=== PATIENT | male | born 1950 | race Hispanic/Latino ===

== ENCOUNTER → 2016-09-27 | Outpatient (CLI) | payer MEDICARE, MEDICAID ==
[2016-09-27 19:14] LABS: ALBUMIN 3.7 GM/DL (3.2-5.2); ALBUMIN/GLOBULIN RATIO 1.16 (1.00-1.93); ALKALINE PHOSPHATASE 193 U/L (45-117); ALT/SGPT 36 U/L (12-78); ANION GAP 7 MEQ/L (8-16); AST/SGOT 24 U/L (15-37); BILIRUBIN,TOTAL 0.2 MG/DL (0.2-1.0); BLOOD UREA NITROGEN 11 MG/DL (7-18); CALCIUM LEVEL 8.9 MG/DL (8.8-10.2); CARBON DIOXIDE LEVEL 30 MEQ/L (21-32); CHLORIDE LEVEL 104 MEQ/L (98-107); CHOLESTEROL LEVEL 149 MG/DL (<200); CREATININE FOR GFR 0.81 MG/DL (0.70-1.30); GLOMERULAR FILTRATION RATE > 60.0 (>49); GLUCOSE, FASTING 151 MG/DL (80-110); POTASSIUM SERUM 4.6 MEQ/L (3.5-5.1); SODIUM LEVEL 141 MEQ/L (136-145); TOTAL PROTEIN 6.9 GM/DL (6.4-8.2); TRIGLYCERIDES LEVEL 78 MG/DL (<150)
[2016-09-27 19:43] LABS: MEAN CORPUSCULAR HEMOGLOBIN 33.7 pg (27.0-33.0); MEAN CORPUSCULAR HGB CONC 33.8 g/dl (32.0-36.5); MEAN CORPUSCULAR VOLUME 99.8 fl (80.0-96.0); RED CELL DISTRIBUTION WIDTH 13.4 % (11.5-14.5); WHITE BLOOD COUNT 4.1 K/mm3 (4.0-10.0)
== END ==
LOC: M WUC 09:40
PROVIDERS: ATTEND Family Medicine
DX: Z79.899 Other long term (current) drug therapy (principal); E11.9 Type 2 diabetes mellitus without complications; I10 Essential (primary) hypertension

== ENCOUNTER → 2017-02-15 | Outpatient (CLI) | payer MEDICARE, MEDICAID | LOC: M WUC 09:32 | PROVIDERS: ATTEND Physician Assistant Medical | DX: R56.9 Unspecified convulsions (principal) ==

== ENCOUNTER → 2017-03-29 | Outpatient (CLI) | payer MEDICARE, MEDICAID ==
[2017-03-29 18:38] LABS: MEAN CORPUSCULAR HEMOGLOBIN 34.4 pg (27.0-33.0); MEAN CORPUSCULAR HGB CONC 34.4 g/dl (32.0-36.5); RED CELL DISTRIBUTION WIDTH 13.7 % (11.5-14.5); WHITE BLOOD COUNT 6.2 K/mm3 (4.0-10.0)
[2017-03-29 18:53] LABS: ALBUMIN 3.6 GM/DL (3.2-5.2); ALBUMIN/GLOBULIN RATIO 1.16 (1.00-1.93); ALKALINE PHOSPHATASE 164 U/L (45-117); ALT/SGPT 37 U/L (12-78); ANION GAP 7 MEQ/L (8-16); AST/SGOT 24 U/L (15-37); BILIRUBIN,TOTAL 0.2 MG/DL (0.2-1.0); BLOOD UREA NITROGEN 21 MG/DL (7-18); CALCIUM LEVEL 8.5 MG/DL (8.8-10.2); CARBON DIOXIDE LEVEL 30 MEQ/L (21-32); CHLORIDE LEVEL 99 MEQ/L (98-107); CREATININE FOR GFR 0.93 MG/DL (0.70-1.30); GLOMERULAR FILTRATION RATE > 60.0 (>49); GLUCOSE, FASTING 104 MG/DL (80-110); POTASSIUM SERUM 4.6 MEQ/L (3.5-5.1); SODIUM LEVEL 136 MEQ/L (136-145); TOTAL PROTEIN 6.7 GM/DL (6.4-8.2)
== END ==
LOC: M WUC 14:48
PROVIDERS: ATTEND Family Medicine
DX: E11.9 Type 2 diabetes mellitus without complications (principal); Z79.899 Other long term (current) drug therapy

== ENCOUNTER → 2017-06-20 | Outpatient (CLI) | payer MEDICARE, MEDICAID ==
[2017-06-20 18:36] LABS: BASO % 0.2 % (0.0-1.0); EOS # 0.3 10^3/uL (0.0-0.50); EOS % 6.6 % (0.0-3.0); IMMATURE GRANULOCYTE % 0.2 % (0-0); LYMPH % 40.2 % (24.0-44.0); MEAN CORPUSCULAR HEMOGLOBIN 32.8 pg (27.0-33.0); MEAN CORPUSCULAR HGB CONC 33.3 g/dl (32.0-36.5); MEAN CORPUSCULAR VOLUME 98.5 fl (80.0-96.0); MONO # 0.4 10^3/uL (0.0-0.8); MONO % 8.2 % (0.0-5.0); NEUTROPHILS # 2.2 10^3/uL (1.8-7.7); NEUTROPHILS % 44.6 % (36.0-66.0); PLATELET COUNT, AUTOMATED 155 10^3/uL (150-450); RED CELL DISTRIBUTION WIDTH 13.6 % (11.5-14.5)
[2017-06-20 18:40] LABS: ADD MORPHOLOGY? NO
== END ==
LOC: M WUC 09:32
PROVIDERS: ATTEND Physician Assistant Medical
DX: R56.9 Unspecified convulsions (principal); E55.9 Vitamin D deficiency, unspecified; Z79.899 Other long term (current) drug therapy

== ENCOUNTER → 2018-04-19 | Outpatient (CLI) | payer MEDICARE, MEDICAID | LOC: M WUC 11:09 | DX: M51.37 Other intervertebral disc degeneration, lumbosacral region (principal) | CPT/HCPCS: 72110 ==

== ENCOUNTER → 2018-06-29 | Outpatient (CLI) | payer MEDICARE, MEDICAID ==
[2018-06-29 20:10] LABS: PHENYTOIN (DILANTIN) 12.5 UG/ML (10.0-20.0)
[2018-06-29 20:31] LABS: TOTAL 25(OH) VITAMIN D 54.1 NG/ML (30.0-100.0)
== END ==
LOC: M WUC 17:23
DX: R56.9 Unspecified convulsions (principal); E55.9 Vitamin D deficiency, unspecified
CPT/HCPCS: 80185

== ENCOUNTER → 2018-08-15 | Outpatient (CLI) | payer MEDICARE, MEDICAID ==
[2018-08-15 17:18] LABS: ALBUMIN 3.5 GM/DL (3.2-5.2); ALBUMIN/GLOBULIN RATIO 1.06 (1.00-1.93); ALKALINE PHOSPHATASE 148 U/L (45-117); ALT/SGPT 37 U/L (12-78); ANION GAP 6 MEQ/L (8-16); AST/SGOT 25 U/L (7-37); BILIRUBIN,TOTAL 0.2 MG/DL (0.2-1.0); BLOOD UREA NITROGEN 15 MG/DL (7-18); CALCIUM LEVEL 8.3 MG/DL (8.8-10.2); CARBON DIOXIDE LEVEL 31 MEQ/L (21-32); CHLORIDE LEVEL 103 MEQ/L (98-107); CREATININE FOR GFR 0.91 MG/DL (0.70-1.30); GLOMERULAR FILTRATION RATE > 60.0 (>49); GLUCOSE, FASTING 182 MG/DL (70-100); POTASSIUM SERUM 4.5 MEQ/L (3.5-5.1); SODIUM LEVEL 140 MEQ/L (136-145); TOTAL PROTEIN 6.8 GM/DL (6.4-8.2)
[2018-08-15 17:20] LABS: BASO % 0.5 % (0.0-1.0); EOS # 0.4 10^3/uL (0.0-0.50); HEMATOCRIT 37.2 % (42.0-52.0); HEMOGLOBIN 12.3 g/dl (13.5-17.5); IMMATURE GRANULOCYTE % 0.3 % (0-3.0); LYMPH % 32.9 % (24.0-44.0); MEAN CORPUSCULAR HEMOGLOBIN 33.2 pg (27.0-33.0); MEAN CORPUSCULAR HGB CONC 33.1 g/dl (32.0-36.5); MEAN CORPUSCULAR VOLUME 100.5 fl (80.0-96.0); MONO # 0.5 10^3/uL (0.0-0.8); MONO % 8.2 % (0.0-5.0); NEUTROPHILS # 3.1 10^3/uL (1.8-7.7); NEUTROPHILS % 52.1 % (36.0-66.0); PLATELET COUNT, AUTOMATED 150 10^3/uL (150-450)
[2018-08-15 17:48] LABS: ESTIMATED AVERAGE GLUCOSE 157 MG/DL (60-110); HEMOGLOBIN A1c 7.1 %
== END ==
LOC: M WUC 13:11
DX: I10 Essential (primary) hypertension (principal)
CPT/HCPCS: 80053

== ENCOUNTER → 2018-12-04 | Outpatient (CLI) | payer MEDICARE, MEDICAID ==
[~2018-12-04] MED LIST: CLOP75TA2; DIAZ10TA2; DILA100C PO; DILA50HA; GLIM2TA PO; GLIM2TAB; GLUC1000 PO; HUMA100I3 SC; INSUH10VL; METF10004; NAME28CA; NAME28CA PO; OLAN10TA2; PARO40TA2; PLAV1TAB2 PO; RISP3TAB20 PO; RISP3TAB3; SIMV10TA2; TRAD5TAB; TRIH2TAB3; TRIH2TAB3 PO; ZOCO10TA PO; ZYPR10TA PO; [UNRECOGNIZED DRUG - CODE]
[2018-12-04 13:44] LABS: BASO % 0.5 % (0.0-1.0); EOS # 0.3 10^3/uL (0.0-0.50); EOS % 5.7 % (0.0-3.0); HEMOGLOBIN 12.9 g/dl (13.5-17.5); LYMPH # 1.7 10^3/uL (1.5-4.5); MEAN CORPUSCULAR HEMOGLOBIN 33.2 pg (27.0-33.0); MEAN CORPUSCULAR HGB CONC 33.9 g/dl (32.0-36.5); MEAN CORPUSCULAR VOLUME 97.9 fl (80.0-96.0); MONO # 0.3 10^3/uL (0.0-0.8); MONO % 7.5 % (0.0-5.0); NEUTROPHILS # 2.1 10^3/uL (1.8-7.7); NEUTROPHILS % 46.8 % (36.0-66.0); PLATELET COUNT, AUTOMATED 143 10^3/uL (150-450); RED BLOOD COUNT 3.88 10^6/uL (4.30-6.10); WHITE BLOOD COUNT 4.4 10^3/uL (4.0-10.0)
[2018-12-04 13:48] LABS: HEMOGLOBIN A1c 6.8 %
[2018-12-04 13:49] LABS: CREATININE, URINE 41.2 MG/DL; MALB URINE SIEMENS 20.3 MG/L; MAU/CREAT RATIO 49.2 MCG/MG (0.0-30.0)
[2018-12-04 13:55] LABS: ALBUMIN 3.8 GM/DL (3.2-5.2); ALT/SGPT 52 U/L (12-78); BILIRUBIN,TOTAL 0.3 MG/DL (0.2-1.0); BLOOD UREA NITROGEN 13 MG/DL (7-18); CALCIUM LEVEL 8.7 MG/DL (8.8-10.2); CARBON DIOXIDE LEVEL 31 MEQ/L (21-32); CHLORIDE LEVEL 104 MEQ/L (98-107); CHOLESTEROL LEVEL 156 MG/DL (<200); CREATININE FOR GFR 0.89 MG/DL (0.70-1.30); GLOMERULAR FILTRATION RATE > 60.0 (>49); GLUCOSE, FASTING 181 MG/DL (70-100); HDL CHOLESTEROL 78 MG/DL (>40); LDL CHOLESTEROL 60 MG/DL (<100); NON-HDL-C 78 MG/DL; PHENYTOIN (DILANTIN) 9.9 UG/ML (10.0-20.0); POTASSIUM SERUM 4.8 MEQ/L (3.5-5.1); SODIUM LEVEL 140 MEQ/L (136-145); TOTAL PROTEIN 7.4 GM/DL (6.4-8.2); TRIGLYCERIDES LEVEL 91 MG/DL (<150)
== END ==
LOC: M WUC 09:46
PROVIDERS: ATTEND Family Medicine
DX: I10 Essential (primary) hypertension (principal); E11.9 Type 2 diabetes mellitus without complications; Z79.899 Other long term (current) drug therapy

== ENCOUNTER → 2018-12-17 | Outpatient (CLI) | payer MEDICARE, MEDICAID ==
[2018-12-17 13:35] LABS: PHENYTOIN (DILANTIN) 14.5 UG/ML (10.0-20.0)
[2018-12-17 13:44] LABS: TOTAL 25(OH) VITAMIN D 48.4 NG/ML (30.0-100.0)
== END ==
LOC: M WUC 08:57
PROVIDERS: ATTEND Physician Assistant Medical
DX: R56.9 Unspecified convulsions (principal); E55.9 Vitamin D deficiency, unspecified

== ENCOUNTER → 2019-03-21 | Outpatient (CLI) | payer MEDICARE, MEDICAID ==
[~2019-03-21] MED LIST changes: +D3 H2000 PO; +DEBR6.5S4 AU; -DIAZ10TA2; +DIAZ10TA2 PO; -GLIM2TA PO; -GLIM2TAB; +GLIM2TAB29 PO; +GLIM2TAB4; +MULTCAP PO; -PARO40TA2; +PARO40TA2 PO; -SIMV10TA2; +SIMV10TA21; -TRAD5TAB; +TRAD5TAB PO; +VITA-157 PO
[2019-03-21 20:56] LABS: ALBUMIN 3.7 GM/DL (3.2-5.2); ALT/SGPT 34 U/L (12-78); BILIRUBIN,TOTAL 0.2 MG/DL (0.2-1.0); BLOOD UREA NITROGEN 13 MG/DL (7-18); CALCIUM LEVEL 8.9 MG/DL (8.8-10.2); CARBON DIOXIDE LEVEL 32 MEQ/L (21-32); CHLORIDE LEVEL 100 MEQ/L (98-107); CHOLESTEROL LEVEL 132 MG/DL (<200); CHOLESTEROL RISK RATIO 1.714 (<5); CREATININE FOR GFR 0.82 MG/DL (0.70-1.30); GLOMERULAR FILTRATION RATE > 60.0 (>49); GLUCOSE, FASTING 111 MG/DL (70-100); HDL CHOLESTEROL 77 MG/DL (>40); LDL CHOLESTEROL 39 MG/DL (<100); NON-HDL-C 55 MG/DL; POTASSIUM SERUM 4.2 MEQ/L (3.5-5.1); SODIUM LEVEL 136 MEQ/L (136-145); TOTAL PROTEIN 7.4 GM/DL (6.4-8.2); TRIGLYCERIDES LEVEL 80 MG/DL (<150)
[2019-03-21 21:01] LABS: PROLACTIN 32.4 NG/ML (2.1-17.7)
[2019-03-21 21:10] LABS: BASO % 0.4 % (0.0-1.0); EOS # 0.4 10^3/uL (0.0-0.50); EOS % 7.8 % (0.0-3.0); HEMATOCRIT 36.1 % (42.0-52.0); HEMOGLOBIN 12.2 g/dl (13.5-17.5); LYMPH # 1.9 10^3/uL (1.5-4.5); LYMPH % 37.6 % (24.0-44.0); MEAN CORPUSCULAR HGB CONC 33.8 g/dl (32.0-36.5); MEAN CORPUSCULAR VOLUME 100.6 fl (80.0-96.0); MONO # 0.7 10^3/uL (0.0-0.8); MONO % 13.3 % (0.0-5.0); NEUTROPHILS # 2.1 10^3/uL (1.8-7.7); NEUTROPHILS % 40.7 % (36.0-66.0); PLATELET COUNT, AUTOMATED 123 10^3/uL (150-450); RED BLOOD COUNT 3.59 10^6/uL (4.30-6.10); WHITE BLOOD COUNT 5.1 10^3/uL (4.0-10.0)
[2019-03-21 21:22] LABS: HEMOGLOBIN A1c 7.4 %
== END ==
LOC: M WUC 16:23
PROVIDERS: ATTEND Physician Assistant
DX: F72 Severe intellectual disabilities (principal)

== ENCOUNTER 2019-05-08 10:07 | Emergency (ER) | payer MEDICARE, MEDICAID ==
[~2019-05-08] VITALS: Ht 165.1 cm; Wt 58.9 kg
[~2019-05-08 10:07] MED LIST changes: -D3 H2000 PO; -DEBR6.5S4 AU; +GLIM2TAB; -GLIM2TAB4; -MULTCAP PO; +SIMV10TA2; -SIMV10TA21; -VITA-157 PO
[2019-05-08] MEDS ORDERED: D3 H2000 PO (10:24)
[2019-05-08] MEDS ORDERED: MULTCAP PO (10:24)
[2019-05-08] MEDS ORDERED: metFORMIN (GLUCOPHAGE) 1000 MG TABLET PO ONE (12:30)
[2019-05-08 13:10] VITALS: BP 122/69
--- NOTE | 2019-05-08 19:25 | ECGEPIP ---
[facility] - ED Test Date: 2019-05-08 Pat Name: FANY PICKERING Department: Room: - Gender: Male Extrusion Former: jarod : 1950 Requested By: Janis Shah Order Number: [id number] Reading MD: Janis Shah Measurements Intervals [place] Rate: 78 P: 45 SD: 158 QRS: -35 QRSD: 93 T: 65 QT: 362 QTc: 414 Interpretive Statements SINUS RHYTHM MARKED LEFT AXIS DEVIATION NONSPECIFIC ST T WAVE CHANGES CW 08/29/[address] T WAVE CHANGES Electronically Signed on 05-08-2019 19:25:09 EDT by Janis Shah
== END 2019-05-08 13:25 | disposition home or self-care (01) ==
LOC: M ED 10:07
DX: T50.991A Poisoning by other drugs, medicaments and biological substances, accidental (unintentional), initial encounter (principal); X58.XXXA Exposure to other specified factors, initial encounter; Y92.89 Other specified places as the place of occurrence of the external cause; E11.9 Type 2 diabetes mellitus without complications; G40.909 Epilepsy, unspecified, not intractable, without status epilepticus; B19.20 Unspecified viral hepatitis C without hepatic coma; Z79.899 Other long term (current) drug therapy; Z79.4 Long term (current) use of insulin; Z79.02 Long term (current) use of antithrombotics/antiplatelets; Z88.8 Allergy status to other drugs, medicaments and biological substances

== ENCOUNTER → 2019-05-17 | Outpatient (REF) | payer MEDICARE, MEDICAID ==
[~2019-05-17] MED LIST changes: +D3 H2000 PO; +MULTCAP PO
== END ==
LOC: M LAB REF 17:56
PROVIDERS: ATTEND Physician Assistant
DX: R19.7 Diarrhea, unspecified (principal)

== ENCOUNTER → 2019-06-22 | Outpatient (CLI) | payer MEDICARE, MEDICAID ==
[~2019-06-22] MED LIST changes: +VITA-157 PO
[2019-06-22 08:29] LABS: PHENYTOIN (DILANTIN) 10.5 UG/ML (10.0-20.0)
[2019-06-22 08:43] LABS: TOTAL 25(OH) VITAMIN D 45.9 NG/ML (30.0-100.0)
== END ==
LOC: M LAB 07:31
PROVIDERS: ATTEND Physician Assistant Medical
DX: R56.9 Unspecified convulsions (principal); E55.9 Vitamin D deficiency, unspecified

== ENCOUNTER 2019-08-11 07:11 | Day surgery (SDC) | payer MEDICARE, MEDICAID ==
[~2019-08-11] VITALS: Ht 165.1 cm; Wt 57.2 kg
[~2019-08-11 07:11] MED LIST changes: +DEBR6.5S4 AU; -GLIM2TAB; +GLIM2TAB2; +LIDOCAINE 2% INJ 100 MG/5 ML SDV (FOR ANES.) As Ordered ONE; +PROPOFOL 200 MG/20 ML VIAL As Ordered ONE; +SIMETHICONE 40MG/0.6ML DROPS 30ML As Ordered ONE
[2019-08-11 08:45] VITALS: BP 137/73
--- NOTE | 2019-08-11 15:50 | ROOR ---
Patient Name: Kareem Delgado Procedure Date: 08/11/2019 8:01 AM Date of : 1950 Age: 68 Room: [facility] Gender: Male Note Status: Finalized Procedure: Colonoscopy Indications: Diarrhea, Weight loss Providers: Miguel Jackson Jr, MD Referring MD: Max Snyder MD Requesting Provider: Medicines: Propofol per Anesthesia Complications: No immediate complications. Procedure: Pre-Anesthesia Assessment: - Prior to the procedure, a History and Physical was performed, and patient medications and allergies were reviewed. The patient is competent. The risks and benefits of the procedure and the sedation options and risks were discussed with the patient. All questions were answered and informed consent was obtained. Patient identification and proposed procedure were verified by the physician and the nurse in the pre-procedure area and in the procedure room. Mental Status Examination: alert and oriented. Airway Examination: normal oropharyngeal airway and neck mobility. Respiratory Examination: clear to auscultation. CV Examination: normal. ASA Grade Assessment: II - A patient with mild systemic disease. After reviewing the risks and benefits, the patient was deemed in satisfactory condition to undergo the procedure. The anesthesia plan was to use moderate sedation / analgesia (conscious sedation). Immediately prior to administration of medications, the patient was re-assessed for adequacy to receive sedatives. The heart rate, respiratory rate, oxygen saturations, blood pressure, adequacy of pulmonary ventilation, and response to care were monitored throughout the procedure. The physical status of the patient was re-assessed after the procedure. The Colonoscope was introduced through the anus and advanced to the cecum, identified by appendiceal orifice and ileocecal valve. The colonoscopy was performed without difficulty. The patient tolerated the procedure well. The quality of the bowel preparation was adequate. Findings: The descending colon, transverse colon, ascending colon, cecum, appendiceal orifice and ileocecal valve appeared normal. Multiple small and large-mouthed diverticula were found in the sigmoid colon. A few small and large-mouthed diverticula were found in the ascending colon. Non-bleeding external and internal hemorrhoids were found during endoscopy. The hemorrhoids were moderate, Grade II (internal hemorrhoids that prolapse but reduce spontaneously) and Grade III (internal hemorrhoids that prolapse but require manual reduction). A few hyperplastic polyps were found in the rectum, recto-sigmoid colon and sigmoid colon. The polyps were diminutive in size. These polyps were removed with a cold snare. Resection and retrieval were complete. Impression: - The descending colon, transverse colon, ascending colon, cecum, appendiceal orifice and ileocecal valve are normal. - Diverticulosis in the sigmoid colon. - Diverticulosis in the ascending colon. - Non-bleeding external and internal hemorrhoids. - No specimens collected. Recommendation: - Repeat colonoscopy in 5-10 years for surveillance based on pathology results. Miguel Jackson MD Miguel Jackson Jr, MD 08/11/2019 8:25:50 AM Electronically signed by Miguel Jackson Jr, MD Number of Addenda: 0 Note Initiated On: 08/11/2019 8:01 AM Estimated Blood Loss: Estimated blood loss: none. Estimated blood loss: none.
== END 2019-08-11 08:55 | disposition home or self-care (01) ==
LOC: M OPP 07:11
PROVIDERS: ATTEND Surgery
DX: K64.2 Third degree hemorrhoids (principal); R19.7 Diarrhea, unspecified; K57.30 Diverticulosis of large intestine without perforation or abscess without bleeding; R63.4 Abnormal weight loss; K63.5 Polyp of colon; Z79.4 Long term (current) use of insulin; Z79.899 Other long term (current) drug therapy; Z88.6 Allergy status to analgesic agent; Z88.8 Allergy status to other drugs, medicaments and biological substances

== ENCOUNTER → 2019-11-02 | Outpatient (CLI) | payer MEDICARE, MEDICAID ==
[~2019-11-02] MED LIST changes: -GLIM2TAB2; +GLIM2TAB4; -LIDOCAINE 2% INJ 100 MG/5 ML SDV (FOR ANES.) As Ordered ONE; -PROPOFOL 200 MG/20 ML VIAL As Ordered ONE; -SIMETHICONE 40MG/0.6ML DROPS 30ML As Ordered ONE; -SIMV10TA2; +SIMV10TA21
[2019-11-02 07:57] LABS: HEMATOCRIT 39.1 % (42.0-52.0); MEAN CORPUSCULAR HEMOGLOBIN 33.1 pg (27.0-33.0); MEAN CORPUSCULAR HGB CONC 33.2 g/dl (32.0-36.5); MEAN CORPUSCULAR VOLUME 99.5 fl (80.0-96.0); PLATELET COUNT, AUTOMATED 161 10^3/uL (150-450); RED BLOOD COUNT 3.93 10^6/uL (4.30-6.10); WHITE BLOOD COUNT 5.2 10^3/uL (4.0-10.0)
[2019-11-02 08:15] LABS: HEMOGLOBIN A1c 6.9 %
[2019-11-02 08:23] LABS: ALBUMIN 3.4 GM/DL (3.2-5.2); ALT/SGPT 36 U/L (12-78); BILIRUBIN,TOTAL 0.2 MG/DL (0.2-1.0); BLOOD UREA NITROGEN 16 MG/DL (7-18); CALCIUM LEVEL 9.1 MG/DL (8.8-10.2); CARBON DIOXIDE LEVEL 32 MEQ/L (21-32); CHLORIDE LEVEL 104 MEQ/L (98-107); CHOLESTEROL LEVEL 142 MG/DL (<200); CHOLESTEROL RISK RATIO 2.253 (<5); CREATININE FOR GFR 0.83 MG/DL (0.70-1.30); GLOMERULAR FILTRATION RATE > 60.0 (>49); GLUCOSE, FASTING 130 MG/DL (70-100); HDL CHOLESTEROL 63 MG/DL (>40); LDL CHOLESTEROL 59 MG/DL (<100); NON-HDL-C 79 MG/DL; PHENYTOIN (DILANTIN) 13.5 UG/ML (10.0-20.0); POTASSIUM SERUM 4.3 MEQ/L (3.5-5.1); PROSTATIC SPECIFIC AG MONITOR 1.04 NG/ML (< 4.00); SODIUM LEVEL 141 MEQ/L (136-145); TOTAL PROTEIN 7.2 GM/DL (6.4-8.2); TRIGLYCERIDES LEVEL 99 MG/DL (<150)
== END ==
LOC: M LAB 07:05
PROVIDERS: ATTEND Family Medicine
DX: Z12.5 Encounter for screening for malignant neoplasm of prostate (principal); I10 Essential (primary) hypertension; E11.9 Type 2 diabetes mellitus without complications; Z79.899 Other long term (current) drug therapy; Z79.4 Long term (current) use of insulin

== ENCOUNTER → 2019-11-03 | Outpatient (REF) | payer MEDICARE, MEDICAID ==
[2019-11-03 12:19] LABS: CREATININE, URINE 39.6 MG/DL; MAU/CREAT RATIO 204.5 MCG/MG (0.0-30.0)
== END ==
LOC: M LAB REF 10:25
PROVIDERS: ATTEND Family Medicine
DX: Z12.5 Encounter for screening for malignant neoplasm of prostate (principal); I10 Essential (primary) hypertension; E11.9 Type 2 diabetes mellitus without complications; Z79.899 Other long term (current) drug therapy

== ENCOUNTER → 2019-12-12 | Outpatient (CLI) | payer MEDICARE, MEDICAID ==
--- NOTE | 2019-12-12 14:57 | REPVR ---
PROCEDURE INFORMATION: Exam: MR Head Without Contrast Exam date and time: 12/12/2019 1:38 PM Age: 69 years old Clinical indication: Screening exam; Prior surgery; Surgery date: 6+ months; Surgery type: Gamma knife 2007; Patient HX: Routine f/u; Additional info: Benign neoplasm of cerebral mengies TECHNIQUE: Imaging protocol: MR of the head without contrast. COMPARISON: MRI-Brain without Contrast 12/25/2017 2:00 PM FINDINGS: Ventricles: Since the previous examination of 2018 there has been progressive increase in size of the lateral ventricles probably representing mild atrophy. There is no evidence of mass effect. Bones/joints: There is a 2.7 cm in length by 1 cm in thickness increased signal intensity mass at the right greater sphenoid wing which is unchanged when compared with multiple previous exams dating back to 2013. This is consistent with a right sphenoid wing meningioma. Soft tissues: Unremarkable. Sinuses: Normal as visualized. No acute sinusitis. Mastoid air cells: Normal as visualized. No mastoid effusion. Orbits: Unremarkable. Other findings: There is bright signal intensity along the meninges right hemisphere and this is unchanged. IMPRESSION: 1. Mass lesion at the right greater wing of the sphenoid unchanged in size since the previous exams dating back to 2013 and probably a sphenoid wing meningioma. 2. Interval development of mild atrophy. Electronically signed by: Quirino Henry On 12/12/2019 14:57:28 PM
== END ==
LOC: M RAD 12:47
PROVIDERS: ATTEND Physician Assistant Medical
DX: G31.9 Degenerative disease of nervous system, unspecified (principal); D32.0 Benign neoplasm of cerebral meninges; G40.309 Generalized idiopathic epilepsy and epileptic syndromes, not intractable, without status epilepticus; F02.81 Dementia in other diseases classified elsewhere, unspecified severity, with behavioral disturbance

== ENCOUNTER → 2020-05-06 | Outpatient (REF) | payer MEDICARE, MEDICAID ==
[2020-06-24 11:42] LABS: HEMATOCRIT 38.2 % (42.0-52.0); HEMOGLOBIN 12.6 g/dl (13.5-17.5); MEAN CORPUSCULAR HEMOGLOBIN 33.9 pg (27.0-33.0); MEAN CORPUSCULAR VOLUME 102.7 fl (80.0-96.0); PLATELET COUNT, AUTOMATED 183 10^3/uL (150-450); RED BLOOD COUNT 3.72 10^6/uL (4.30-6.10)
[2020-06-28 16:51] LABS: ALBUMIN 3.9 GM/DL (3.2-5.2); ALT/SGPT 41 U/L (12-78); BILIRUBIN,TOTAL 0.2 MG/DL (0.2-1.0); BLOOD UREA NITROGEN 36 MG/DL (7-18); CALCIUM LEVEL 9.5 MG/DL (8.8-10.2); CARBON DIOXIDE LEVEL 32 MEQ/L (21-32); CHLORIDE LEVEL 103 MEQ/L (98-107); CREATININE FOR GFR 1.05 MG/DL (0.70-1.30); GLOMERULAR FILTRATION RATE > 60.0 (>49); GLUCOSE, FASTING 164 MG/DL (70-100); POTASSIUM SERUM 4.3 MEQ/L (3.5-5.1); SODIUM LEVEL 142 MEQ/L (136-145); TOTAL PROTEIN 7.6 GM/DL (6.4-8.2)
== END ==
LOC: M LABWUC 14:31
PROVIDERS: ATTEND Family Medicine
DX: Z51.81 Encounter for therapeutic drug level monitoring (principal); Z79.899 Other long term (current) drug therapy

== ENCOUNTER → 2020-05-09 | Outpatient (CLI) | payer MEDICARE, MEDICAID ==
--- NOTE | 2020-06-15 08:20 | REP ---
CHEST X-RAY: 2-VIEWS HISTORY: Abnormal weight loss. COMPARISON: 03/09/2016. FINDINGS: The lungs are symmetrically aerated and free of infiltrate. No pulmonary mass lesion is seen. No hilar or mediastinal mass or adenopathy is seen. Heart is not felt to be enlarged. There are degenerative changes in the thoracic spine unchanged from the 2016 prior study. No bony destructive lesion. IMPRESSION: No active disease. MTDD
--- NOTE | 2020-06-15 08:31 | REP ---
CT OF THE ABDOMEN, PELVIS NOT INCLUDED, WITHOUT IV OR BOWEL CONTRAST Delay in reporting results from hospital computer system malfunction from malware/ ransomware. This study is performed for abnormal weight loss. COMPARISON: None. FINDINGS: The visualized lower lung fonseca demonstrate mild cardiomegaly. There is a small pericardial effusion versus pericardial thickening posterolaterally on the left measuring up to 11 mm in depth. This appears to be focal. There are surgical clips versus vascular atheroma in the coronary arteries. The unenhanced hepatic parenchyma is homogeneous. The gallbladder is unremarkable. The unenhanced pancreas and spleen are unremarkable. There is a minimal volume of subcutaneous and intraperitoneal body fat. The adrenals are unremarkable. The abdominal aorta is unremarkable. There is no periaortic adenopathy or mass. The unenhanced kidneys are unremarkable. The visualized bowel and mesentery are unremarkable. There are no lytic, blastic, or destructive skeletal changes. There is degenerative disk disease throughout the lumbar spine with large bridging osteophytes at multiple levels. IMPRESSION: Small focal pericardial effusion versus focal pericardial thickening posterolaterally on the left. Surgical clips versus calcified vascular atheroma in the coronary arteries. Minimal volume of subcutaneous and intraperitoneal body fat. MTDD
== END ==
LOC: M RAD 07:23
PROVIDERS: ATTEND Family Medicine
DX: R63.4 Abnormal weight loss (principal); I51.7 Cardiomegaly; I31.9 Disease of pericardium, unspecified

== ENCOUNTER 2020-09-19 16:28 | Emergency (ER) | payer MEDICARE, MEDICAID ==
[~2020-09-19] VITALS: Ht 165.1 cm; Wt 61.1 kg
[2020-09-19 16:28] VITALS: BP 137/82
[~2020-09-19 16:28] MED LIST changes: +RISP-10; -RISP3TAB3
== END 2020-09-19 17:22 | disposition home or self-care (01) ==
LOC: M ED 16:28
DX: Z04.89 Encounter for examination and observation for other specified reasons (principal); E11.9 Type 2 diabetes mellitus without complications; F03.90 Unspecified dementia, unspecified severity, without behavioral disturbance, psychotic disturbance, mood disturbance, and anxiety; F72 Severe intellectual disabilities; R56.9 Unspecified convulsions; Z79.899 Other long term (current) drug therapy; Z79.4 Long term (current) use of insulin; Z79.01 Long term (current) use of anticoagulants; Z88.8 Allergy status to other drugs, medicaments and biological substances; F17.210 Nicotine dependence, cigarettes, uncomplicated

== ENCOUNTER → 2020-12-24 | Outpatient (CLI) | payer MEDICARE, MEDICAID ==
[~2020-12-24] MED LIST changes: -VITA-157 PO; +VITAE40CA PO
[2020-12-24 07:36] LABS: HEMATOCRIT 37.6 % (42.0-52.0); HEMOGLOBIN 12.8 g/dl (13.5-17.5); PLATELET COUNT, AUTOMATED 132 10^3/uL (150-450); RED BLOOD COUNT 3.76 10^6/uL (4.30-6.10); WHITE BLOOD COUNT 5.5 10^3/uL (4.0-10.0)
[2020-12-24 08:07] LABS: ALBUMIN 3.8 GM/DL (3.2-5.2); ALT/SGPT 32 U/L (12-78); BILIRUBIN,TOTAL 0.2 MG/DL (0.2-1.0); BLOOD UREA NITROGEN 27 MG/DL (7-18); CALCIUM LEVEL 9.2 MG/DL (8.8-10.2); CARBON DIOXIDE LEVEL 32 MEQ/L (21-32); CHLORIDE LEVEL 104 MEQ/L (98-107); CREATININE FOR GFR 0.82 MG/DL (0.70-1.30); GLOMERULAR FILTRATION RATE > 60.0 (>49); GLUCOSE, FASTING 128 MG/DL (70-100); PHENYTOIN (DILANTIN) 9.6 UG/ML (10.0-20.0); POTASSIUM SERUM 4.3 MEQ/L (3.5-5.1); SODIUM LEVEL 140 MEQ/L (136-145); TOTAL PROTEIN 7.2 GM/DL (6.4-8.2)
[2020-12-24 08:25] LABS: HEMOGLOBIN A1c 6.7 %
== END ==
LOC: M LAB 06:42
PROVIDERS: ATTEND Family Medicine
DX: E11.9 Type 2 diabetes mellitus without complications (principal)

== ENCOUNTER → 2021-07-19 | Outpatient (REF) | payer MEDICARE, MEDICAID ==
[~2021-07-19] MED LIST changes: -OLAN10TA2; +OLAN1TAB20
== END ==
LOC: M LAB REF 17:20
PROVIDERS: ATTEND Physician Assistant
DX: R05.9 Cough, unspecified (principal); R50.9 Fever, unspecified

== ENCOUNTER 2021-07-30 20:53 | Observation (INO) | payer MEDICARE, MEDICAID ==
[~2021-07-30] VITALS: Ht 167.6 cm; Wt 59.5 kg
--- OUTSIDE RECORDS SUMMARY | 2021-07-30 20:58 | CCD ---
Author Author [facility] Organization [facility] Address Unknown Phone Unavailable Care Team Providers Care Board Certified Orthodontist Name Role Phone Jameel SPIVEY PA Unavailable Unavailable Jameel SPIVEY PA Unavailable Unavailable Jameel SPIVEY PA Unavailable Unavailable Jameel SPIVEY PA Unavailable Unavailable Jameel SPIVEY PA Unavailable Unavailable Jameel SPVIEY PA Unavailable Unavailable Jameel SPIVEY PA Unavailable Unavailable Jameel SPIVEY PA Unavailable Unavailable PATRIC, Jameel WARRENEB PA Unavailable Unavailable PATRIC, Jameel WARRENEB PA Unavailable Unavailable PATRIC, Jameel WARRENEB PA Unavailable Unavailable PATRIC, Jameel WARRENEB PA Unavailable Unavailable PATRIC, Jameel WARRENEB PA Unavailable Unavailable PATRIC, Jameel WARRENEB PA Unavailable Unavailable PATRIC, Jameel BRAVO PA Unavailable Unavailable Jameel SPIVEY PA Unavailable Unavailable Jameel SPIVEY PA Unavailable Unavailable Jameel SPIVEY PA Unavailable Unavailable Jameel SPIVEY PA Unavailable Unavailable Jameel SPIVEYEB PA Unavailable Unavailable Jameel SPIVEYEB PA Unavailable Unavailable PATRIC, Jameel WARRENEB PA Unavailable Unavailable SPIVEY, J SHELLY PA Unavailable Unavailable SPIVEY, J SHELLY PA Unavailable Unavailable SPIVEY, J SHELLY PA Unavailable Unavailable SPIVEY, J SHELLY PA Unavailable Unavailable SPIVEY, J SHELLY PA Unavailable Unavailable Trickey, J Katie PA Unavailable Unavailable Trickey, J Katie PA Unavailable Unavailable Trickey, J Katie PA Unavailable Unavailable Trickey, J Katie PA Unavailable Unavailable Trickey, J Katie PA Unavailable Unavailable Trickey, J Katie PA Unavailable Unavailable Trickey, J Katie PA Unavailable Unavailable Trickey, J Katie PA Unavailable Unavailable Trickey, J Katie PA Unavailable Unavailable Trickey, J Katie PA Unavailable Unavailable Trickey, J Katie PA Unavailable Unavailable Trickey, J Katie PA Unavailable Unavailable Trickey, J Katie PA Unavailable Unavailable Trickey, J Katie PA Unavailable Unavailable Trickey, J Katie PA Unavailable Unavailable Trickey, J Katie PA Unavailable Unavailable Trickey, J Katie PA Unavailable Unavailable Trickey, J Katie PA Unavailable Unavailable Trickey, J Katie PA Unavailable Unavailable Trickey, J Katie PA Unavailable Unavailable Trickey, J Katie PA Unavailable Unavailable Trickey, J Katie PA Unavailable Unavailable Trickey, J Katie PA Unavailable Unavailable Trickey, J Katie PA Unavailable Unavailable Trickey, J Katie PA Unavailable Unavailable Trickey, J Katie PA Unavailable Unavailable Trickey, J Katie PA Unavailable Unavailable Trickey, J Katie PA Unavailable Unavailable Trickey, J Katie PA Unavailable Unavailable Trickey, J Katie PA Unavailable Unavailable Trickey, J Katie PA Unavailable Unavailable Trickey, J Katie PA Unavailable Unavailable Trickey, J Katie PA Unavailable Unavailable Trickey, J Katie PA Unavailable Unavailable Trickey, J Katie PA Unavailable Unavailable Trickey, J Katie PA Unavailable Unavailable Trickey, J Katie PA Unavailable Unavailable Trickey, J Katie PA Unavailable Unavailable Trickey, J Katie PA Unavailable Unavailable Trickey, J Katie PA Unavailable Unavailable Trickey, J Katie PA Unavailable Unavailable Trickey, J Katie PA Unavailable Unavailable Trickey, J Katie PA Unavailable Unavailable Trickey, J Katie PA Unavailable Unavailable Trickey, J Katie PA Unavailable Unavailable Trickey, J Katie PA Unavailable Unavailable Trickey, J Katie PA Unavailable Unavailable Trickey, J Katie PA Unavailable Unavailable Trickey, J Katie PA Unavailable Unavailable SPIVEY, J SHELLY PA Unavailable Unavailable SPIVEY, J SHELLY PA Unavailable Unavailable SPIVEY, J SHELLY PA Unavailable Unavailable SPIVEY, J SHELLY PA Unavailable Unavailable SPIVEY, J SHELLY PA Unavailable Unavailable SPIVEY, J SHELLY PA Unavailable Unavailable SPIVEY, J SHELLY PA Unavailable Unavailable SPIVEY, J SHELLY PA Unavailable Unavailable SPIVEY, J SHELLY PA Unavailable Unavailable SPIVEY, J SHELLY PA Unavailable Unavailable SPIVEY, J SHELLY PA Unavailable Unavailable SPIVEY, J SHELLY PA Unavailable Unavailable SPIVEY, J SHELLY PA Unavailable Unavailable SPIVEY, J SHELLY PA Unavailable Unavailable SPIVEY, J SHELLY PA Unavailable Unavailable SPIVEY, J SHELLY PA Unavailable Unavailable SPIVEY, J SHELLY PA Unavailable Unavailable SPIVEY, J SHELLY PA Unavailable Unavailable SPIVEY, J SHELLY PA Unavailable Unavailable SPIVEY, J SHELLY PA Unavailable Unavailable SPIVEY, J SHELLY PA Unavailable Unavailable SPIVYE, J SHELLY PA Unavailable Unavailable SPIVEY, J SHELLY PA Unavailable Unavailable SPIVEY, J SHELLY PA Unavailable Unavailable SPIVEY, J SHELLY PA Unavailable Unavailable SPIVEY, J SHELLY PA Unavailable Unavailable SPIVEY, J SHELLY PA Unavailable Unavailable Re-disclosure Warning The records that you are about to access may contain information from federally-assisted alcohol or drug abuse programs. If such information is present, then the following federally mandated warning applies: This information has been disclosed to you from records protected by federal confidentiality rules (42 CFR part 2). The federal rules prohibit you from making any further disclosure of this information unless further disclosure is expressly permitted by the written consent of the person to whom it pertains or as otherwise permitted by 42 CFR part 2. A general authorization for the release of medical or other information is NOT sufficient for this purpose. The Federal rules restrict any use of the information to criminally investigate or prosecute any alcohol or drug abuse patient.The records that you are about to access may contain highly sensitive health information, the redisclosure of which is protected by Article 27-F of the [facility] Public Health law. If you continue you may have access to information: Regarding HIV / AIDS; Provided by facilities licensed or operated by the [facility] Office of Mental Health; or Provided by the [facility] Office for People With Developmental Disabilities. If such information is present, then the following [facility] mandated warning applies: This information has been disclosed to you from confidential records which are protected by state law. State law prohibits you from making any further disclosure of this information without the specific written consent of the person to whom it pertains, or as otherwise permitted by law. Any unauthorized further disclosure in violation of state law may result in a fine or correction sentence or both. A general authorization for the release of medical or other information is NOT sufficient authorization for further disc losure. Family History Family Member Name Family Member Gender Family Member Status Date o f Status Description Data Source(s) Unknown Unknown Problem [facility] ([facility]) Encounters Encounter Providers Location Date Indications Data Source(s ) Outpatient Attender: SHELLY JACKSON 04/30 10:02:00 AM EDT - 04/30/2021 10:02:00 AM EDT [facility] Outpatient Attender: SHELLY AJCKSON [facility] 04/30 10:00:00 AM EDT [facility] ([facility] Outpatient Attender: Katie JACKSON [facility] 03/06/2021 09:00:00 AM EDT [facility] ([facility] ) Outpatient Attender: SHELLY JACKSON 01/04 10:09:00 AM EDT - 01/04/2021 10:09:00 AM EDT [facility] Outpatient Attender: SHELLY JACKSON [facility] 01/04 10:00:00 AM EDT [facility] ([facility]) Office Visit Attender: Katie JACKSON [facility] 12/04/2020 10:00:00 AM EDT [facility] ([facility] ) Outpatient Attender: SHELLY JACKSON 08/06 09:06:00 AM EST - 08/06/2020 09:06:00 AM EST [facility] Outpatient Attender: Katie JACKSON [facility] office - [facility] 06/06/2020 10:30:00 AM EDT [facility] ([facility] ) Immunizations Vaccine Date Status Description Data Source(s) COVID-19 VACCINE Moderna 11/27/2020 12:00:00 AM EST completed [facility] Vaccine Series Complete: YESThis Data wa s Submitted to [facility]. COVID-19 VACCINE Moderna 10/30/2020 12:00:00 AM EST completed [facility] Vaccine Series Complete: NOThis Data was Submitted to [facility] [employer]. Medications Medication Brand Name Start Date Product Form Dose Route Admi nistrative Instructions Pharmacy Instructions Status Indications Reaction Description Data Source(s) Cholecalciferol (Vitamin D3) 11/30/2020 12:00:00 AM EST completed [facility] ([facility]) Insurance Providers Payer name Policy type / Coverage type Policy ID Covered republican ID Covered republican's relationship to shannon Policy Shannon Plan Information [id number] MEDICARE [id number] [place] [id number] Self [id number] [place] [id number] Self MEDICARE [id number] SP [id number] [place] [id number] SP [id number] P EMED[place] [id number] SP [id number] MEDICAID [id number] SP [id number] Medicaid Medigap Part B [id number] 91.0 Self [id number] Medicare Part B Medicare Primary [id number] Self [id number] [place] [id number] Self [id number] Medicare Natl Gov't Servi Medicare Primary [id number] Self [id number] Medicaid Medigap Part B [id number] 91.0 Self [id number] Medicare Part B Medicare Primary [id number] Self [id number] [place] [id number] Self [id number] Medicare Natl Gov't Servi Medicare Primary [id number] Self [id number] MEDICARE [id number] SP [id number] MEDICARE [id number] SP [id number] Medicaid Medigap Part B [id number] 91.0 Self [id number] Medicare Part B Medicare Primary [id number] Self [id number] MEDICARE C [id number] S [id number] [id number] Medicare Natl Gov't Servi Medicare Primary [id number] Self [id number] Medicaid Medigap Part B [id number] 91.0 Self [id number] Medicare Part B Medicare Primary [id number] Self [id number] Medicaid Medigap Part B [id number] 91.0 Self [id number] Medicare Part B Medicare Primary [id number] Self [id number] Medicaid Medigap Part B [id number] 91.0 Self [id number] Medicare Part B Medicare Primary [id number] Self [id number] Medicaid Medigap Part B [id number] 91.0 Self [id number] Medicare Part B Medicare Primary [id number] Self [id number] Medicaid Medigap Part B [id number] 91.0 Self [id number] Medicare Part B Medicare Primary [id number] Self [id number] Medicaid Medigap Part B [id number] 91.0 Self [id number] Medicare Part B Medicare Primary [id number] Self [id number] Medicaid Medigap Part B [id number] 91.0 Self [id number] Medicare Part B Medicare Primary [id number] Self [id number] Medicaid Medigap Part B [id number] 91.0 Self [id number] Medicare Part B Medicare Primary [id number] Self [id number] Medicaid Medigap Part B [id number] 91.0 Self [id number] Medicare Part B Medicare Primary [id number] Self [id number] Medicaid Medigap Part B [id number] 91.0 Self [id number] Medicare Part B Medicare Primary [id number] Self [id number] Medicaid Medigap Part B [id number] 91.0 Self [id number] Medicare Part B Medicare Primary [id number] Self [id number] Medicaid Medigap Part B [id number] 91.0 Self [id number] Medicare Part B Medicare Primary [id number] Self [id number] [place] [id number] 33873.0 Self [id number] Medicaid Medigap Part B 1 1 [id number] 91.0 Self 1 1 Medicare Part B Medicare Primary [id number] Self Medicaid Medicaid [id number] Self Medicare Medicare Primary [id number] Self [id number] [place] Part B [id number] Self BH MEDICARE CO [id number] MEDICAID CO [id number] MEDICARE C [id number] S [id number] MEDICAID M [id number] S [id number] [place]ICARE [place] [id number] 18 [id number] MEDICAID [id number] SP [id number] Problems, Conditions, and Diagnoses Code Display Name Description Problem Type Effective Dates Data Source(s) Z79.899 Taking medication Taking medication Problem 08/06/2020 12:00:00 AM [facility]) Surgeries/Procedures Procedure Description Date Indications Data Source(s) OFFICE OUTPATIENT VISIT 25 MINUTES 04/30/2021 12:00:00 AM EDT [facility] ([facility]) OFFICE OUTPATIENT VISIT 25 MINUTES 01/04/2021 12:00:00 AM EDT [facility] ([facility]) ECHO TTHRC R-T 2D W/WOM-MODE COMPL SPEC&COLR DOP 10/26 12:00:00 AM EST [facility] ([facility]) Results ID Date Data Source [id number] 07/19/2021 02:00:00 PM EDT [facility] Name Value Range Interpretation Code Description Data Eva rce(s) Supporting Document(s) SARS-CoV-2 (COVID 19) NEGATIVE - SARS-CoV-2 (COVID19) [facility] This lab was ordered by [facility] a nd reported by [facility]. Procedure Social History No Information Vital Signs ID Date Data Source UNK Name Value Range Interpretation Code Description Data Source(s) Systolic blood pressure 110 mm[Hg] 110 mm[Hg] M [facility] ([facility], ) Diastolic blood pressure 60 mm[Hg] 60 mm[Hg] [facility] ([facility], ) Heart rate 96 /min 96 /min [facility] ([facility], ) Respiratory rate 20 /min 20 /min [facility] ( [facility], ) Systolic blood pressure 120 mm[Hg] 120 mm[Hg] [facility] Heart rate 88 /min 88 /min [facility] ([facility], ) Respiratory rate 16 /min 16 /min [facility] ( [facility], ) Diastolic blood pressure 60 mm[Hg] 60 mm[Hg] [facility] ([facility], )
--- NOTE | 2021-07-30 21:27 | REPVR ---
PROCEDURE INFORMATION: Exam: CT Head Without Contrast Exam date and time: 07/30/2021 9:04 PM Age: 70 years old Clinical indication: Weakness, extremity; Left; Additional info: Left side deficits TECHNIQUE: Imaging protocol: Computed tomography of the head without contrast. Radiation optimization: All CT scans at this facility use at least one of these dose optimization techniques: automated exposure control; mA and/or kV adjustment per patient size (includes targeted exams where dose is matched to clinical indication); or iterative reconstruction. COMPARISON: MRI-Brain without Contrast 12/12/2019 1:25 PM FINDINGS: Brain: Mild nonspecific hypodensities of the periventricular and deep subcortical white matter, most likely secondary to chronic small vessel ischemic change. No intracranial hemorrhage or extra-axial fluid collection. No evidence of mass effect or midline shift. [place]-white matter differentiation is normal. Cerebral ventricles: Mild prominence of the ventricles and sulci, most likely attributed to parenchymal volume loss. Paranasal sinuses: Visualized sinuses are unremarkable. No fluid levels. Mastoid air cells: Unremarkable. Bones/joints: No acute osseus lesion or fracture. Soft tissues: Unremarkable. IMPRESSION: 1. No acute intracranial pathology. 2. Other chronic findings, as above. Electronically signed by: Brian Moncada On 07/30/2021 21:26:55 PM
[2021-07-30] MEDS ORDERED: ISOVUE-370 76% 100ML VIAL As Ordered ONE (21:50)
--- OUTSIDE RECORDS SUMMARY | 2021-07-30 22:31 | CCD ---
Author Author [facility] Organization [facility] Address Unknown Phone Unavailable Care Team Providers Care Printing Manager Name Role Phone Jameel SPIVEY PA Unavailable [...] is protected by Article 27-F of the [facility] Public Health law. If you continue you may have access to information: Regarding HIV / AIDS; Provided by facilities licensed or operated by the [facility] Office of Mental Health; or Provided by the [facility] Office for People With Developmental Disabilities. If such information is present, then the following [facility] mandated warning applies: This information has been [...] law may result in a fine or senior care sentence or both. A general authorization for [...] AM EDT - 04/30/2021 10:02:00 AM [facility]T [facility]: SHELLY JACKSON [facility] 04/30 10:00:00 AM EDT [facility] ([facility] Outpatient Attender: Katie JACKSON [facility] 03/06/2021 09:00:00 AM EDT [facility] ([facility], ) Outpatient Attender: SHELLY JACKSON 01/04 10:09:00 AM EDT - 01/04/2021 10:09:00 AM EDT [facility] Attender: SHELLY JACKSON [facility] 01/04 10:00:00 AM EDT [facility] ([facility]) Office Visit Attender: Katie JACKSON [facility] 12/04/2020 10:00:00 AM EDT [facility] ([facility], ) Outpatient Attender: SHELLY JACKSON 08/06 09:06:00 AM EST - 08/06/2020 09:06:00 AM EST [facility] Out[facility] Attender: Katie JACKSON [facility] office - [facility] 06/06/2020 10:30:00 AM EDT [facility] ([facility], ) Immunizations Vaccine Date Status Description Data Source(s) COVID-19 VACCINE Moderna 11/27/2020 12:00:00 AM EST completed [facility] Vaccine Series Complete: YESThis Data wa s Submitted to [facility] Via [employer]. COVID-19 VACCINE Moderna 10/30/2020 12:00:00 AM EST completed [facility] Vaccine Series Complete: NOThis Data was Submitted to [facility] Via [employer]. Medications Medication Brand Name Start Date Product Form Dose Route Admi nistrative Instructions Pharmacy Instructions Status Indications Reaction Description Data Source(s) Cholecalciferol (Vitamin D3) 11/30/2020 12:00:00 AM EST completed [facility] ([facility]) Insurance Providers Payer name Policy type / Coverage type Policy ID Covered alliance party ID Covered alliance party's relationship to shannon Policy Shannon Plan Information [id number] MEDICARE [id number] [place] Primary [id number] Self [id number] [place] Primary [id number] Self MEDICARE [id number] SP [id number] [place] [id number] SP [id number] P EMEDNY [id number] SP [id number] MEDICAID [id number] SP [id number] Medicaid Medigap Part B [id number] 91.0 Self [id number] Medicare Part B Medicare Primary [id number] Self [id number] [place] Med[place] [id number] Self [id number] Medicare Natl Gov't Servi Medicare Primary [id number] Self [id number] Medicaid Medigap Part B [id number] 91.0 Self [id number] Medicare Part B Medicare Primary [id number] Self [id number] [place] [id number] Self [id number] Medicare Natl Gov't Servi Medicare Primary [id number] Self [id number] MEDICARE [id number] SP [id number] MEDICARE [id number] SP [id number] Medicaid Medigap Part B [id number] 91.0 Self [id number] Medicare Part B Medicare Primary [id number] Self [id number] MEDICARE C [id number] S [id number] Medicare Natl Gov't Servi Medicare Primary [id number] Self [id number] Medicaid Medigap Part B [id number] 91.0 Self [id number] Medicare Part B Medicare Primary [id number] Self [id number] Medicaid Medigap Part B [id number] 91.0 Self [id number] Medicare Part B Medicare Primary [id number] Self [id number] Medicaid Medigap Part B [id number] 91.0 Self [id number] Medicare Part B Medicare Primary [id number] [id number] Self [id number] Medicaid Medigap Part B [id number] 91.0 Self [id number] Medicare Part B Medicare Primary [id number] Self [id number] Medicaid Medigap Part B [id number] 91.0 Self [id number] Medicare Part B Medicare Primary [id number] Self [id number] Medicaid Medigap Part B [id number] 91.0 Self [id number] Medicare Part B Medicare Primary [id number] Self [id number] Medicaid Medigap Part B [id number] 91.0 Self [id number] Medicare Part B Medicare Primary [id number] Self [id number] Medicaid Medigap Part B [id number] 91.0 Self [id number] Medicare Part B Medicare Primary [id number] Self [id number] Medicaid Medigap Part B [id number] 91.0 Self [id number] Medicare Part B Medicare Primary [id number] Self [id number] Medicaid Medigap Part B [id number] 91.0 Self [id number] Medicare Part B Medicare Primary [id number] Self [id number] Medicaid Medigap Part B [id number] 91.0 Self [id number] Medicare Part B Medicare Primary [id number] Self [id number] Medicaid Medigap Part B [id number] 91.0 Self [id number] Medicare Part B Medicare Primary [id number] Self [id number] [place] [id number] Self [id number] Medicaid Medigap Part B 1 1 [id number] 91.0 Self 1 1 Medicare Part B Medicare Primary [id number] Self Medicaid Medicaid [id number] Self Medicare Medicare Primary [id number] Self [id number] [place] B [id number] Self BH MEDICARE CO [id number] MEDICAID CO [id number] MEDICARE C [id number] S [id number] MEDICAID M [id number] S [id number] MEDICARE [place] [id number] MEDICAID [id number] Problems, Conditions, and Diagnoses Code Display Name Description Problem Type Effective Dates Data Source(s) Z79.899 Taking medication Taking medication Problem 08/06/2020 12:00:00 AM [facility]) Surgeries/Procedures Procedure Description Date Indications Data Source(s) OFFICE OUTPATIENT VISIT 25 MINUTES 04/30/2021 12:00:00 AM EDT [facility] ([facility]) OFFICE OUTPATIENT VISIT 25 MINUTES 01/04/2021 12:00:00 AM EDT [facility] ([facility]) ECHO TTHRC R-T 2D W/WOM-MODE COMPL SPEC&COLR DOP 10/26 12:00:00 AM EST [facility] ([facility]) Results ID Date Data Source [id number] 07/19/2021 02:00:00 PM EDT [facility] Name Value Range Interpretation Code Description Data Eva rce(s) Supporting Document(s) SARS-CoV-2 (COVID 19) NEGATIVE - SARS-CoV-2 (COVID19) [facility] This lab was ordered by [facility] a nd reported by [facility]. Procedure Social History No Information Vital Signs ID Date Data Source UNK Name Value Range Interpretation Code Description Data Source(s) Systolic blood pressure 110 mm[Hg] 110 mm[Hg] [facility] Diastolic blood pressure 60 mm[Hg] 60 mm[Hg] [facility] ([facility], ) Heart rate 96 /min 96 /min [facility] ([facility], ) Respiratory rate 20 /min 20 /[facility] Heart rate 88 /min 88 /[facility] ) Respiratory rate 16 /min 16 /min [facility] ) Systolic blood pressure 120 mm[Hg] 120 mm[Hg] [facility] Diastolic blood pressure 60 mm[Hg] 60 mm[Hg] [facility] ([facility], )
--- NOTE | 2021-07-30 22:42 | REPVR ---
PROCEDURE INFORMATION: Exam: CT Angiography Neck With Contrast Exam date and time: 07/30/2021 10:16 PM Age: 70 years old Clinical indication: Weakness; Additional info: CVA TECHNIQUE: Imaging protocol: Computed tomography angiography of the neck with contrast. 3D rendering (Not supervised by radiologist): MIP and/or 3D reconstructed images were created by the technologist. Radiation optimization: All CT scans at this facility use at least one of these dose optimization techniques: automated exposure control; mA and/or kV adjustment per patient size (includes targeted exams where dose is matched to clinical indication); or iterative reconstruction. Contrast material: ISOVUE 370; Contrast volume: 100 ml; Contrast route: INTRAVENOUS (IV); COMPARISON: CT Head without contrast 07/30/2021 9:02 PM FINDINGS: Limitations: Artifact arising from metallic dental hardware. Right common carotid artery: No stenosis. No dissection or occlusion. Right internal carotid artery: No stenosis of the extracranial segment. No dissection or occlusion. Right external carotid artery: No occlusion or stenosis of the origin. Left common carotid artery: No stenosis. No dissection or occlusion. Left internal carotid artery: Mild calcification at the proximal left ICA without stenosis. Left external carotid artery: No occlusion or stenosis of the origin. Right vertebral artery: No stenosis. No dissection or occlusion. Left vertebral artery: Left vertebral artery is dominant. 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 Soft tissues: Normal. No significant soft tissue swelling. Bones/joints: There are degenerative changes involving the spine. IMPRESSION: No hemodynamically significant stenosis. REFERENCES: NASCET CRITERIA. The degree of internal carotid artery stenosis is based on NASCET criteria. Normal is no stenosis. Mild is less than 50% stenosis. Moderate is 50-69% stenosis. Severe is 70% to 99% stenosis. Total occlusion is no detectable patent lumen. Electronically signed by: Arnel Downs On 07/30/2021 22:41:39 PM
--- NOTE | 2021-07-30 22:44 | REPVR ---
PROCEDURE INFORMATION: Exam: CT Angiography Head With Contrast, Arteriography Exam date and time: 07/30/2021 10:16 PM Age: 70 years old Clinical indication: Weakness; Additional info: CVA TECHNIQUE: Imaging protocol: Computed tomography angiography of the head with contrast. Exam focused on the arteries. 3D rendering (Not supervised by radiologist): MIP and/or 3D reconstructed images were created by the technologist. Radiation optimization: All CT scans at this facility use at least one of these dose optimization techniques: automated exposure control; mA and/or kV adjustment per patient size (includes targeted exams where dose is matched to clinical indication); or iterative reconstruction. Contrast material: ISOVUE 370; Contrast volume: 100 ml; Contrast route: INTRAVENOUS (IV); COMPARISON: CT Head without contrast 07/30/2021 9:02 PM FINDINGS: ANTERIOR CIRCULATION: Right internal carotid artery: Calcification involving the right carotid siphon without significant stenosis. Right middle cerebral artery: Unremarkable. No occlusion or significant stenosis. No aneurysm. Right anterior cerebral artery: Unremarkable. No occlusion or significant stenosis. No aneurysm. Left internal carotid artery: Calcification involving the left carotid siphon without significant stenosis. Left middle cerebral artery: Unremarkable. No occlusion or significant stenosis. No aneurysm. Left anterior cerebral artery: Unremarkable. No occlusion or significant stenosis. No aneurysm. POSTERIOR CIRCULATION: Right vertebral artery: Unremarkable. No occlusion or significant stenosis. No aneurysm. Left vertebral artery: Unremarkable. No occlusion or significant stenosis. No aneurysm. Basilar artery: Unremarkable. No occlusion or significant stenosis. No aneurysm. Right posterior cerebral artery: Unremarkable. No occlusion or significant stenosis. No aneurysm. Left posterior cerebral artery: origin of the left posterior cerebral artery. Brain: Right middle cranial fossa meningioma measures 2.2 by 1.2 cm. Cerebral ventricles: No ventriculomegaly. Bones/joints: Unremarkable. No acute fracture. Soft tissues: Unremarkable. IMPRESSION: 1. No hemodynamically significant stenosis or large vessel occlusion. 2. Meningioma at the right middle cranial fossa measures 2.2 x 1.2 cm. Electronically signed by: Arnel Downs On 07/30/2021 22:44:00 PM
[2021-07-30 23:35] LABS: HEMATOCRIT 37.3 % (42.0-52.0); HEMOGLOBIN 12.7 g/dl (13.5-17.5); MEAN CORPUSCULAR HEMOGLOBIN 33.5 pg (27.0-33.0); MEAN CORPUSCULAR VOLUME 98.4 fl (80.0-96.0); PLATELET COUNT, AUTOMATED 204 10^3/uL (150-450); RED BLOOD COUNT 3.79 10^6/uL (4.30-6.10); WHITE BLOOD COUNT 5.6 10^3/uL (4.0-10.0)
[2021-07-31 00:03] LABS: PHENYTOIN (DILANTIN) 5.7 UG/ML (10.0-20.0)
[2021-07-31 00:39] LABS: RSV AMPLIFICATION POSITIVE (NEGATIVE)
[2021-07-31] MEDS ORDERED: MAALOX 30 ML SUSP *UDC PO PRN (01:20)
[2021-07-31] MEDS ORDERED: GLUCAGON INJ 1MG VIAL SC PRN (01:20)
[2021-07-31] MEDS ORDERED: MOM 30ML SUSPENSION UDC PO PRN (01:20)
[2021-07-31] MEDS ORDERED: GLUCOSE 4GM CHEW TABLET PO PRN (01:20)
[2021-07-31] MEDS ORDERED: ACETAMINOPHEN TAB 650MG DOSE (2X325MG) PO PRN (01:20)
[2021-07-31] MEDS ORDERED: DEXTROSE 50% 50 ML SYRINGE IV PRN (01:20)
--- NOTE | 2021-07-31 01:23 | HPEPDOC ---
[facility] Medical History & Physical Date of Admission Jul 31, 2021 Date of Service: Jul 31, 2021 Attending Physician: RICK MURILLO MD History and Physical CHIEF COMPLAINT: [70 y/o male brought in for evaluation of right facial droop] HISTORY OF PRESENT ILLNESS: [This is a 70 y/o male [facility] resident with a pmh of severe intellectual disability, dementia, epilepsy, ?cad, dm2 who presents to the ED for evaluation of a new right sided facial droop and facial twitching that was noticed today at dinnertime. Patient himself is a poor historian and majority of history is taken from the chart and from [facility] staff present in the room. Patient is apparently recovering from a RSV infection per staff, but has been recovering well and apparently his appetite and behavior have returned to his baseline. Staff tell me that today around dinner they noticed that the right side of his face began to droop and also some twitching movements of the right side of the cheek were noticed. No other changes were noted per staff. Patient did not fall or syncopize recently. Patient himself tells me that he fells good, has no pain, and is hungry.] PAST MEDICAL HISTORY: 1. [See HPI PAST SURGICAL HISTORY: 1. [Reviewed - none SOCIAL HISTORY: Resides in: [[facility] resident] Tobacco use:[Denies] ETOH: [Denies] Illicit drug use: [Denies] FAMILY HISTORY: Pt is unaware ALLERGIES: Please see below. REVIEW OF SYSTEMS: Unable to obtain accurate ROS d/t patient mentation HOME MEDICATIONS: Please see below. PHYSICAL EXAMINATION: VITAL SIGNS: Please see below. GENERAL APPEARANCE: [Very pleasant 70 y/o male who is alert to questioning and answers simple questions appropriately. He does not appear to be in any acute distress]. HEENT: [No mass or lesion. Mild right sided facial droop noted at the mouth and eye level. Some right buccal twitching is noted. Eyebrows appear symmetric. Nares patent. Oral mucosa moist]. CARDIOVASCULAR: [Regular rate, rhythm. No murmurs, rubs, gallops]. LUNGS: [Good air flow b/l. No wheezing, rales, rhonchi]. ABDOMEN: [Soft, nontender]. MUSCULOSKELETAL: [No joint deformity noted]. EXTREMITIES: [No pedal edema appreciated. Pulses intact. No overlying skin changes]. NEUROLOGICAL: [Speech clear. A+Ox1. Neuro exam somewhat limited d/t patient understanding of commands. Patient able to move all extremities upon command. Patient smile mildly asymmetric with right sided droop.]. PSYCHIATRIC: [Mood appropriate]. LABORATORY DATA: See below. IMAGING: [Head CT: FINDINGS: Brain: Mild nonspecific hypodensities of the periventricular and deep subcortical white matter, most likely secondary to chronic small vessel ischemic change. No intracranial hemorrhage or extra-axial fluid collection. No evidence of mass effect or midline shift. [place]-white matter differentiation is normal. Cerebral ventricles: Mild prominence of the ventricles and sulci, most likely attributed to parenchymal volume loss. Paranasal sinuses: Visualized sinuses are unremarkable. No fluid levels. Mastoid air cells: Unremarkable. Bones/joints: No acute osseus lesion or fracture. Soft tissues: Unremarkable. IMPRESSION: 1. No acute intracranial pathology. 2. Other chronic findings, as above. CTA Head: FINDINGS: ANTERIOR CIRCULATION: Right internal carotid artery: Calcification involving the right carotid siphon without significant stenosis. Right middle cerebral artery: Unremarkable. No occlusion or significant stenosis. No aneurysm. Right anterior cerebral artery: Unremarkable. No occlusion or significant stenosis. No aneurysm. Left internal carotid artery: Calcification involving the left carotid siphon without significant stenosis. Left middle cerebral artery: Unremarkable. No occlusion or significant stenosis. No aneurysm. Left anterior cerebral artery: Unremarkable. No occlusion or significant stenosis. No aneurysm. POSTERIOR CIRCULATION: Right vertebral artery: Unremarkable. No occlusion or significant stenosis. No aneurysm. Left vertebral artery: Unremarkable. No occlusion or significant stenosis. No aneurysm. Basilar artery: Unremarkable. No occlusion or significant stenosis. No aneurysm. Right posterior cerebral artery: Unremarkable. No occlusion or significant stenosis. No aneurysm. Left posterior cerebral artery: origin of the left posterior cerebral artery. Brain: Right middle cranial fossa meningioma measures 2.2 by 1.2 cm. Cerebral ventricles: No ventriculomegaly. Bones/joints: Unremarkable. No acute fracture. Soft tissues: Unremarkable. IMPRESSION: 1. No hemodynamically significant stenosis or large vessel occlusion. 2. Meningioma at the right middle cranial fossa measures 2.2 x 1.2 cm. CTA Neck: FINDINGS: Limitations: Artifact arising from metallic dental hardware. Right common carotid artery: No stenosis. No dissection or occlusion. Right internal carotid artery: No stenosis of the extracranial segment. No dissection or occlusion. Right external carotid artery: No occlusion or stenosis of the origin. Left common carotid artery: No stenosis. No dissection or occlusion. Left internal carotid artery: Mild calcification at the proximal left ICA without stenosis. Left external carotid artery: No occlusion or stenosis of the origin. Right vertebral artery: No stenosis. No dissection or occlusion. Left vertebral artery: Left vertebral artery is dominant. 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 Soft tissues: Normal. No significant soft tissue swelling. Bones/joints: There are degenerative changes involving the spine. IMPRESSION: No hemodynamically significant stenosis. ] MICROBIOLOGY: Please see below. ASSESSMENT: [This is a 70 y/o male [facility] resident with a pmh of severe intellectual disability, dementia, epilepsy, ?cad, dm2 who presents to the ED for evaluation of a new right sided facial droop and facial twitching that was noticed today at dinnertime. Workup performed thus far has been grossly negative]. . PLAN: 1. [R Sided facial droop - TIA vs. Chavez's palsy vs. tardive dyskinesia - CT imaging of head has been grossly negative for acute findings. 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 DM2 - sliding scale coverage - hypoglycemic protocol 3. Epilepsy - continue phenytoin 4. HLD - continue simvastatin 5. ?CAD - continue plavix 6. Mental impairment/behaviors - continue at home zyprexa, risperdal, trihexyphenidyl, paxil DVT prophylaxis - lovenox]. Vital Signs Vital Signs Date Time Temp Pulse Resp B/P (MAP) Pulse Ox O2 Delivery O2 Flow Rate FiO2 07/31/21 01:01 97.6 07/31/21 00:30 91 16 130/78 (95) 07/31/21 00:15 96 Room Air Laboratory Data Labs 24H Laboratory Tests 2 07/30/21 21:37: POC Glucose (Misc Panel) 155H, POC Sodium (Misc Panel) 134L, POC Potassium (Misc Panel) 4.4, POC Chloride (Misc Panel) 95L, POC Total CO2 (Misc Panel) 24.0, POC Blood Urea Nitrogen (Misc Panel 27H, POC Ionized Calcium (Misc Panel) 4.7, POC Creatinine (Misc Panel) 0.7, POC Hematocrit (Misc Panel) 41.0 07/30/21 23:22: Phenytoin (Dilantin) Level 5.7L 07/30/21 23:23: Nucleated Red Blood Cells % (auto) 0.0, Coronavirus (COVID-19)(PCR) NEGATIVE, Influenza Type A (RT-PCR) NEGATIVE, Influenza Type B (RT-PCR) NEGATIVE, R espiratory Syncytial Virus (PCR) POSITIVE CBC/BMP Laboratory Tests 07/30/21 23:23 Home Medications Scheduled Carbamide Peroxide (Debrox) 15 Ml Drops, 5 DROP AU ASDIRECTED TAKES ON 3 CONSECUTIVE NIGHTS EVERY MONTH: TOOK THE 5TH, 6TH AND 7TH OF THIS MONTH ALREADY Cholecalciferol (Vitamin D3) (Vitamin D3) 1,000 Unit Tablet, 2,000 UNITS PO BID 0730, 1700 Clopidogrel Bisulfate (Plavix) 75 Mg Tab, 75 MG PO DAILY Docusate Sodium (Docusate Sodium) 100 Mg Capsule, 100 MG PO QHS Glimepiride (Glimepiride) 2 Mg Tab, 2 MG PO QPM TAKES AT 1700 Insulin Aspart (Novolog Flexpen) 100 Unit/1 Ml Insuln.pen, 1 DOSE SC BID 0730, 1600: PER SLIDING SCALE Linagliptin (Tradjenta) 5 Mg Tablet, 5 MG PO DAILY Memantine HCl (Namenda Xr) 28 Mg Cap, 28 MG PO DAILY Metformin HCl (Metformin HCl) 1,000 Mg Tablet, 1,000 MG PO BID 0730, 1630 Multivitamins (Thera M Plus Tablet) 1 Each Tablet, 1 TAB PO DAILY Olanzapine (Zyprexa) 10 Mg Tab, 10 MG PO QHS Paroxetine HCl (Paroxetine HCl) 40 Mg Tablet, 40 MG PO DAILY Phenytoin (Phenytoin) 50 Mg Tab.chew, 150 MG PO BID Risperidone (Risperdal) 3 Mg Tab, 3 MG PO DAILY Simvastatin (Zocor) 10 Mg Tab, 10 MG PO QHS Trihexyphenidyl HCl (Trihexyphenidyl HCl) 2 Mg Tab, 2 MG PO BID Vitamin E (Vitamin E) 400 Unit Capsule, 400 UNIT PO DAILY Scheduled PRN Diazepam (Valium) 10 Mg Tablet, 10 MG PO ASDIRECTED PRN for ANXIETY TAKE 10MG 1 HOUR BEFORE DENTAL APPOINTMENTS Selenium Sulfide (Selsun Blue) 207 Ml Shampoo, 1 DOSE EXT 2XW PRN for DRY SKIN APPLY TO SCALP Allergies Coded Allergies: aspirin (Verified Allergy, Unknown, 07/21/19) carbamazepine (Verified Allergy, Unknown, 07/21/19) A-FIB/CHADSVASC A-FIB History Current/History of A-Fib/PAF?: No Current PO Anticoag Therapy: No RAFAEL STOCKTON Jul 31, 2021 01:23 RICK MURILLO MD Aug 20, 2021 10:58
--- OUTSIDE RECORDS SUMMARY | 2021-07-31 01:28 | CCD ---
Author Author [facility] Organization [facility] Address Unknown Phone Unavailable Care Team Providers Care Steel Fixer Name Role Phone Jameel SPIVEY PA Unavailable [...] is protected by Article 27-F of the [facility] Public Health law. If you continue you may have access to information: Regarding HIV / AIDS; Provided by facilities licensed or operated by the [facility] Office of Mental Health; or Provided by the [facility] Office for People With Developmental Disabilities. If such information is present, then the following [facility] mandated warning applies: This information has [...] law may result in a fine or skilled nursing sentence or both. A general authorization for [...] AM EDT - 04/30/2021 10:02:00 AM EDT [facility] Outpatient Attender: SHELLY JACKSON [facility] 04/30 10:00:00 AM EDT [facility] ([facility] Outpatient Attender: Katie JACKSON [facility] 03/06/2021 09:00:00 AM EDT [facility] ([facility], ) Outpatient Attender: SHELLY JACKSON 01/04 10:09:00 AM EDT - 01/04/2021 10:09:00 AM EDT [facility] Outpatient Attender: SHELLY JACKSON [facility] 01/04 10:00:00 AM EDT [facility] ([facility]) Office Visit Attender: Katie JACKSON [facility] n 12/04/2020 10:00:00 AM EDT [facility] ([facility], ) Outpatient Attender: SHELLY JACKSON 08/06 09:06:00 AM EST - 08/06/2020 09:06:00 AM EST [facility] Outpatient Attender: Katie JACKSON [facility] office - [facility] n 06/06/2020 10:30:00 AM EDT [facility] ([facility], ) Immunizations Vaccine Date Status Description Data Source(s) COVID-19 VACCINE Moderna 11/27/2020 12:00:00 AM EST completed [facility] Vaccine Series Complete: YESThis Data wa s Submitted to [facility]. COVID-19 VACCINE Moderna 10/30/2020 12:00:00 AM EST completed [facility] Vaccine Series Complete: NOThis Data was Submitted to [facility]. Medications Medication Brand Name Start Date Product Form Dose Route Admi nistrative Instructions Pharmacy Instructions Status Indications Reaction Description Data Source(s) Cholecalciferol (Vitamin D3) 11/30/2020 12:00:00 AM EST completed [facility] ([facility]) Insurance Providers Payer name Policy type / Coverage type Policy ID Covered constitution party ID Covered constitution party's relationship to shannon Policy Shannon Plan Information [id number] MEDICARE [id number] [place] Primary [id number] Self [id number] [place] Primary [id number] Self MEDICARE [id number] SP [id number] [place] [id number] SP [id number] P EMED[place] [id number] SP [id number] MEDICAID [id number] SP [id number] Medicaid Medigap Part B [id number] 91.0 Self [id number] Medicare Part B Medicare Primary [id number] Self [id number] [place] Med[place] [id number] Self [id number] Medicare Natl Gov't Servi Medicare Primary [id number] Self [id number] Medicaid Medigap Part B [id number] 91.0 Self [id number] Medicare Part B Medicare Primary [id number] Self [id number] [place] [id number] .[id number] Self [id number] Medicare Natl Gov't Servi Medicare Primary [id number] Self [id number] MEDICARE [id number] SP [id number] MEDICARE [id number] SP [id number] Medicaid Medigap Part B [id number] [id number] 91.0 Self [id number] Medicare Part B Medicare Primary [id number] [id number] Self [id number] MEDICARE C [id number] S [id number] Medicare Natl Gov't Servi Medicare Primary [id number] Self [id number] Medicaid Medigap Part B [id number] [id number] 91.0 Self [id number] Medicare Part B Medicare Primary [id number] [id number] Self [id number] Medicaid Medigap Part B [id number] [id number] 91.0 Self [id number] Medicare Part B Medicare Primary [id number] [id number] Self [id number] Medicaid Medigap Part B [id number] 91.0 Self [id number] Medicare Part B Medicare Primary [id number] [id number] Self [id number] Medicaid Medigap Part B [id number] 91.0 Self [id number] Medicare Part B Medicare Primary [id number] 2.16.840.1.177[id number] Self [id number] Medicaid Medigap Part B [id number] [id number] 91.0 Self [id number] Medicare Part B Medicare Primary [id number] 2.16.840.1.849[id number] Self [id number] Medicaid Medigap Part B [id number] [id number] 91.0 Self [id number] Medicare Part B Medicare Primary [id number] [id number] Self [id number] Medicaid Medigap Part B [id number] [id number] 91.0 Self [id number] Medicare Part B Medicare Primary [id number] [id number] Self [id number] Medicaid Medigap Part B [id number] [id number] 91.0 Self [id number] Medicare Part B Medicare Primary [id number] Self [id number] Medicaid Medigap Part B [id number] [id number] 91.0 Self [id number] Medicare Part B Medicare Primary [id number] [id number] Self [id number] Medicaid Medigap Part B [id number] [id number] 91.0 Self [id number] Medicare Part B Medicare Primary [id number] 2.16.840.1.035588.3.227.99.1037.82511.0 Self [id number] Medicaid Medigap Part B [id number] [id number] 91.0 Self [id number] Medicare Part B Medicare Primary [id number] 2.16.840.1.026928.3.227.99.1037.11829.0 Self [id number] Medicaid Medigap Part B [id number] [id number] 91.0 Self [id number] Medicare Part B Medicare Primary [id number] [id number] Self [id number] [place] [id number] [id number] 66635.0 Self [id number] Medicaid Medigap Part B 1 1 [id number] 91.0 Self 1 1 Medicare Part B Medicare Primary [id number] Self Medicaid Medicaid [id number] Self Medicare Medicare Primary [id number] Self [id number] [place] B [id number] Self BH MEDICARE CO [id number] MEDICAID CO [id number] MEDICARE C [id number] S [id number] MEDICAID M [id number] S [id number] MEDICARE [place] [id number] 18 [id number] MEDICAID [id number] SP [id number] Problems, Conditions, and Diagnoses Code Display Name Description Problem Type Effective Dates Data Source(s) Z79.899 Taking medication Taking medication Problem 08/06/2020 12:00:00 AM [facility]) Surgeries/Procedures Procedure Description Date Indications Data Source(s) OFFICE OUTPATIENT VISIT 25 MINUTES 04/30/2021 12:00:00 AM EDT [facility] ([facility]) OFFICE OUTPATIENT VISIT 25 MINUTES 01/04/2021 12:00:00 AM EDT [facility] ([facility]) ECHO TTHRC R-T 2D W/WOM-MODE COMPL SPEC&COLR DOP 10/26 12:00:00 AM EST [facility] ([facility]) Results ID Date Data Source [id number] 07/19/2021 02:00:00 PM EDT [facility] Name Value Range Interpretation Code Description Data Eva rce(s) Supporting Document(s) SARS-CoV-2 (COVID 19) NEGATIVE - SARS-CoV-2 (COVID19) [facility] This lab was ordered by [facility] a nd reported by [facility]. Procedure Social History No Information Vital Signs ID Date Data Source UNK Name Value Range Interpretation Code Description Data Source(s) Systolic blood pressure 110 mm[Hg] 110 mm[Hg] M [facility] ([facility], ) Diastolic blood pressure 60 mm[Hg] 60 mm[Hg] [facility] ([facility], ) Heart rate 96 /min 96 /min [facility] ([facility], ) Respiratory rate 20 /min 20 /min [facility] ( [facility], ) Systolic blood pressure 120 mm[Hg] 120 mm[Hg] M [facility] ([facility], ) Diastolic blood pressure 60 mm[Hg] 60 mm[Hg] [facility] ([facility], ) Heart rate 88 /min 88 /min [facility] ([facility], ) Respiratory rate 16 /min 16 /min [facility] ( [facility], )
[2021-07-31 01:49] LABS: HEMOGLOBIN A1c 7.2 %
[2021-07-31 01:53] LABS: BLOOD UREA NITROGEN 26 MG/DL (7-18); CALCIUM LEVEL 9.3 MG/DL (8.8-10.2); CARBON DIOXIDE LEVEL 28 MEQ/L (21-32); CHLORIDE LEVEL 97 MEQ/L (98-107); CHOLESTEROL LEVEL 157 MG/DL (<200); CHOLESTEROL RISK RATIO 2.453 (<5); CREATININE FOR GFR 0.92 MG/DL (0.70-1.30); FREE T4 0.63 NG/DL (0.76-1.46); GLOMERULAR FILTRATION RATE > 60.0 (>49); GLUCOSE, FASTING 102 MG/DL (70-100); HDL CHOLESTEROL 64 MG/DL (>40); LDL CHOLESTEROL 67 MG/DL (<100); NON-HDL-C 93 MG/DL; POTASSIUM SERUM 4.3 MEQ/L (3.5-5.1); SODIUM LEVEL 137 MEQ/L (136-145); TRIGLYCERIDES LEVEL 128 MG/DL (<150)
[2021-07-31] MEDS ORDERED: VITA400C53 PO (02:21)
[2021-07-31] MEDS ORDERED: PARO40TA2 PO (02:21)
[2021-07-31] MEDS ORDERED: NOVOINJ3 SC (02:21)
[2021-07-31] MEDS ORDERED: METF10004 PO (02:21)
[2021-07-31] MEDS ORDERED: DOCU100C16 PO (02:21)
[2021-07-31] MEDS ORDERED: VALI10TA PO (02:21)
[2021-07-31] MEDS ORDERED: TRAD5TAB PO (02:21)
[2021-07-31] MEDS ORDERED: SELS1SHA7 EXT (02:21)
[2021-07-31] MEDS ORDERED: DEBR6.5S4 AU (02:21)
[2021-07-31] MEDS ORDERED: PHEN50CH PO (02:21)
[2021-07-31] MEDS ORDERED: VITMTA PO (02:21)
[2021-07-31] MEDS ORDERED: D31000TA2 PO (02:21)
[2021-07-31] MEDS ORDERED: HOME MED LIST COMPLETE! XX SCH (02:25)
[2021-07-31] MEDS ORDERED: diazePAM 10 MG TAB PO PRN (02:30)
[2021-07-31] MEDS: HumaLOG INSULIN (NovoLOG) PER UNIT SC SCH ×5 (02:41→20:57)
[2021-07-31 02:43] LABS: INR 0.89; PROTHROMBIN TIME 12.5 SECONDS (12.7-14.5)
[2021-07-31 02:44] LABS: PARTIAL THROMBOPLASTIN TIME 32.6 SECONDS (25.9-37.0)
[2021-07-31] MEDS ORDERED: DOCUSATE SODIUM 100MG CAPSULE PO SCH (09:00)
[2021-07-31] MEDS: PHENYTOIN 50 MG CHEW TABLET PO SCH ×2 (09:00→21:02)
[2021-07-31] MEDS: CLOPIDOGREL 75 MG TAB PO SCH (09:27)
[2021-07-31] MEDS: risperiDONE 3 MG TAB PO SCH (09:27)
[2021-07-31] MEDS: TRIHEXYPHENIDYL 2 MG TAB PO SCH ×2 (09:27→21:36)
[2021-07-31] MEDS: PARoxetine 20MG TABLET PO SCH (09:27)
[2021-07-31] MEDS: ENOXAPARIN 40MG/0.4ML SYRINGE (J1650 PER 10MG) SC SCH (09:28)
--- NOTE | 2021-07-31 11:19 | IPNPDOC ---
Text Note Date of Service The patient was seen on 07/31/21. 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 PHYSICAL EXAMINATION: VITAL SIGNS: Please see below. GENERAL APPEARANCE: Awake, alert to questioning and answers appropriately. NAD HEENT: Has a notable right sided facial droop with lower facial twitching NOT tongue movements or opening. Nares patent. Oral mucosa moist. CARDIOVASCULAR: Regular rate, rhythm. has an apical systolic murmur LUNGS: Good air flow b/l. No wheezing, rales, rhonchi. ABDOMEN: Soft, normoactive bowel sounds, NTND EXTREMITIES: No pedal edema appreciated. Pulses intact. No overlying skin changes NEUROLOGICAL: Speech clear, loud and brief answers per baseline. Understands and follows simple commands. Patient able to move all extremities with 5/5 strength. LABORATORY DATA: Reviewed IMAGING: Head CT: Brain: Mild nonspecific hypodensities of the periventricular and deep subcortical white matter, most likely secondary to chronic small vessel ischemic change. No intracranial hemorrhage or extra-axial fluid collection. No evidence of mass effect or midline shift. [place]-white matter differentiation is normal. Cerebral ventricles: Mild prominence of the ventricles and sulci, most likely attributed to parenchymal volume loss. Paranasal sinuses: Visualized sinuses are unremarkable. No fluid levels. Mastoid air cells: Unremarkable. Bones/joints: No acute osseus lesion or fracture. Soft tissues: Unremarkable. IMPRESSION: 1. No acute intracranial pathology. 2. Other chronic findings, as above. CTA Head: FINDINGS: ANTERIOR CIRCULATION: Right internal carotid artery: Calcification involving the right carotid siphon without significant stenosis. Right middle cerebral artery: Unremarkable. No occlusion or significant stenosis. No aneurysm. Right anterior cerebral artery: Unremarkable. No occlusion or significant stenosis. No aneurysm. Left internal carotid artery: Calcification involving the left carotid siphon without significant stenosis. Left middle cerebral artery: Unremarkable. No occlusion or significant stenosis. No aneurysm. Left anterior cerebral artery: Unremarkable. No occlusion or significant stenosis. No aneurysm. POSTERIOR CIRCULATION: Right vertebral artery: Unremarkable. No occlusion or significant stenosis. No aneurysm. Left vertebral artery: Unremarkable. No occlusion or significant stenosis. No aneurysm. Basilar artery: Unremarkable. No occlusion or significant stenosis. No aneurysm. Right posterior cerebral artery: Unremarkable. No occlusion or significant stenosis. No aneurysm. Left posterior cerebral artery: origin of the left posterior cerebral artery. Brain: Right middle cranial fossa meningioma measures 2.2 by 1.2 cm. Cerebral ventricles: No ventriculomegaly. Bones/joints: Unremarkable. No acute fracture. Soft tissues: Unremarkable. IMPRESSION: 1. No hemodynamically significant stenosis or large vessel occlusion. 2. Meningioma at the right middle cranial fossa measures 2.2 x 1.2 cm. CTA Neck: FINDINGS: Limitations: Artifact arising from metallic dental hardware. Right common carotid artery: No stenosis. No dissection or occlusion. Right internal carotid artery: No stenosis of the extracranial segment. No dissection or occlusion. Right external carotid artery: No occlusion or stenosis of the origin. Left common carotid artery: No stenosis. No dissection or occlusion. Left internal carotid artery: Mild calcification at the proximal left ICA without stenosis. Left external carotid artery: No occlusion or stenosis of the origin. Right vertebral artery: No stenosis. No dissection or occlusion. Left vertebral artery: Left vertebral artery is dominant. 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 Soft tissues: Normal. No significant soft tissue swelling. Bones/joints: There are degenerative changes involving the spine. IMPRESSION: No hemodynamically significant stenosis. MICROBIOLOGY: Please see below. ASSESSMENT: 70 y/[address] male [facility] resident with a pmh of severe intellectual disability, dementia, epilepsy, ?cad, dm2 who presents to the ED for evaluation of acute worsening of a slight right sided facial droop and facial twitching i/s/o an RSV URI with c/f Chavez's palsy i/s/o viral infection vs. CVA, now pending a definitive MRI. PLAN: 1.R Sided facial droop -Likely Chavez's palsy exacerbation i/s/o RSV vs. unlikely CVA -CT imaging of head has been grossly negative for acute findings. -Will complete stroke w/u with MRI, though unlikely at this time d/t patient being on plavix and statin therapy already -There is some c/f tardive dyskinesia on this patient who is on antipsychotic medications risperdal and zyprexa for a while -f/u lyme studies -PT/OT 2. DM2 - sliding scale coverage - hypoglycemic protocol 3. Epilepsy - continue phenytoin 4. HLD - continue simvastatin 5. ?CAD - continue plavix 6. Mental impairment/behaviors - continue at home zyprexa, risperdal, trihexyphenidyl, paxil DVT prophylaxis - lovenox]. Dispo: Obs, likely discharge post MRI in the next 24h VS,Shavon, I+O VS, Shavon, I+O Laboratory Tests 07/30/21 23:22 07/30/21 23:23 Vital Signs Date Time Temp Pulse Resp B/P (MAP) Pulse Ox O2 Delivery O2 Flow Rate FiO2 07/31/21 09:45 87 126/73 (90) 93 07/31/21 06:45 96.9 16 Room Air TAM MANN MD Jul 31, 2021 11:19
[2021-07-31 12:00] VITALS: BP 142/83
[2021-07-31] MEDS: SENOKOT S TAB PO SCH ×2 (12:15→21:02)
--- NOTE | 2021-07-31 15:21 | REPVR ---
PROCEDURE INFORMATION: Exam: MR Head Without Contrast Exam date and time: 07/31/2021 2:46 PM Age: 70 years old Clinical indication: Weakness, facial; Additional info: R/O CVA, discharge dependent scan TECHNIQUE: Imaging protocol: MR of the head without contrast. COMPARISON: CT Head without contrast 07/30/2021 9:02 PM FINDINGS: Limitations: The study is severely limited due to patient motion artifact. Brain: There is no definite restricted diffusion to suggest acute infarction. The known meningioma along the right sphenoid wing is poorly visualized on this exam. There is no mass effect or midline shift. Cerebral ventricles: No hydrocephalus. Bones/joints: Unremarkable. Paranasal sinuses: Mild mucosal thickening is present in the right maxillary and left sphenoid sinuses. Mastoid air cells: Normal as visualized. No mastoid effusion. Orbital cavity: Unremarkable. Soft tissues: Unremarkable. IMPRESSION: 1. The study is severely limited due to patient motion artifact. 2. No gross acute intracranial abnormality Electronically signed by: Neal Kohler On 07/31/2021 15:20:33 PM
[2021-07-31] MEDS ORDERED: NICOTINE 14 MG/24 HR TRANSDERMAL TD PRN (19:45)
--- NOTE | 2021-07-31 20:28 | ECGEPIP ---
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
[2021-07-31 21:00] VITALS: BP 126/79
[2021-07-31] MEDS ORDERED: SIMVASTATIN 10 MG TAB PO SCH (21:00)
[2021-07-31] MEDS ORDERED: OLANZapine 10 MG TAB PO SCH (21:00)
[2021-08-01 05:13] VITALS: BP 118/76
[2021-08-01 06:41] LABS: HEMATOCRIT 38.9 % (42.0-52.0); HEMOGLOBIN 13.5 g/dl (13.5-17.5); MEAN CORPUSCULAR HEMOGLOBIN 33.6 pg (27.0-33.0); MEAN CORPUSCULAR HGB CONC 34.7 g/dl (32.0-36.5); MEAN CORPUSCULAR VOLUME 96.8 fl (80.0-96.0); PLATELET COUNT, AUTOMATED 203 10^3/uL (150-450); RED BLOOD COUNT 4.02 10^6/uL (4.30-6.10); WHITE BLOOD COUNT 6.2 10^3/uL (4.0-10.0)
[2021-08-01 07:06] LABS: BLOOD UREA NITROGEN 19 MG/DL (7-18); CARBON DIOXIDE LEVEL 30 MEQ/L (21-32); CHLORIDE LEVEL 100 MEQ/L (98-107); CREATININE FOR GFR 0.78 MG/DL (0.70-1.30); GLOMERULAR FILTRATION RATE > 60.0 (>49); GLUCOSE, FASTING 200 MG/DL (70-100); POTASSIUM SERUM 4.4 MEQ/L (3.5-5.1); SODIUM LEVEL 134 MEQ/L (136-145)
[2021-08-01] MEDS: SENOKOT S TAB PO SCH (08:55)
[2021-08-01] MEDS: PARoxetine 20MG TABLET PO SCH (08:56)
[2021-08-01] MEDS: PHENYTOIN 50 MG CHEW TABLET PO SCH (08:56)
[2021-08-01] MEDS: risperiDONE 3 MG TAB PO SCH (08:56)
[2021-08-01] MEDS: CLOPIDOGREL 75 MG TAB PO SCH (08:56)
[2021-08-01] MEDS: ENOXAPARIN 40MG/0.4ML SYRINGE (J1650 PER 10MG) SC SCH (08:56)
[2021-08-01] MEDS: HumaLOG INSULIN (NovoLOG) PER UNIT SC SCH ×2 (08:57→11:38)
[2021-08-01] MEDS: TRIHEXYPHENIDYL 2 MG TAB PO SCH (11:37)
[2021-08-01 13:09] LABS: Lyme Disease IgG/IgM Antibodie <0.91 ISR (0.00-0.90); Lyme Disease IgM Ab Quantitati <0.80 index (0.00-0.79)
--- NOTE | 2021-08-01 14:46 | DS.PDOC ---
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 Patient himself was a poor historian and majority of history was taken from the chart and from [facility] staff that was present in the room. The patient is recovering from a RSV infection per staff, and had been recovering well with a return of his appetite and behavior had returned to his baseline. At around dinner they noticed that the right side of his face began to droop and also some twitching movements of the right side of the cheek were noticed. No other changes were noted per staff. Patient did not fall or have syncope and the rest of his exam appeared to be at baseline. He was brought to the ED for evaluation where he reported that he felt good, had no pain, and was hungry. HOSPITAL COURSE: Vitals were wnl, labs were unremarkable and he was still RSV positive on respiratory panel without any noted rhinorrhea, congestion, cough or fever. CT head was negative for bleed, mass or acute infarction and he wad admitted to r/o CVA with suspicion of Chavez's exacerbation i/s/o viral illness. He ultimately had a brain MRI that was negative for an acute or evidence of a chronic stroke. He is now being discharged back to [facility]. DISCHARGE MEDICATIONS: Please see below. ALLERGIES: Please see below. PHYSICAL EXAMINATION ON DISCHARGE: VITAL SIGNS: Please see below. VITAL SIGNS: Please see below. GENERAL APPEARANCE: Awake, alert to questioning and answers appropriately. NAD HEENT: Has a right sided facial droop. Nares patent. Oral mucosa moist. CARDIOVASCULAR: Regular rate, rhythm. has an apical systolic murmur LUNGS: Good air flow b/l. No wheezing, rales, rhonchi. ABDOMEN: Soft, normoactive bowel sounds, NTND EXTREMITIES: No pedal edema appreciated. Pulses intact. No overlying skin changes NEUROLOGICAL: Speech clear, loud and brief answers per baseline. Understands and follows simple commands. Patient able to move all extremities with 5/5 strength. Has persistent R facial droop. LABORATORY DATA: Please see below. IMAGING: Head CT: Brain: Mild nonspecific hypodensities of the periventricular and deep subcortical white matter, most likely secondary to chronic small vessel ischemic change. No intracranial hemorrhage or extra-axial fluid collection. No evidence of mass effect or midline shift. [place]-white matter differentiation is normal. Cerebral ventricles: Mild prominence of the ventricles and sulci, most likely attributed to parenchymal volume loss. Paranasal sinuses: Visualized sinuses are unremarkable. No fluid levels. Mastoid air cells: Unremarkable. Bones/joints: No acute osseus lesion or fracture. Soft tissues: Unremarkable. IMPRESSION: 1. No acute intracranial pathology. 2. Other chronic findings, as above. CTA Head: FINDINGS: ANTERIOR CIRCULATION: Right internal carotid artery: Calcification involving the right carotid siphon without significant stenosis. Right middle cerebral artery: Unremarkable. No occlusion or significant stenosis. No aneurysm. Right anterior cerebral artery: Unremarkable. No occlusion or significant stenosis. No aneurysm. Left internal carotid artery: Calcification involving the left carotid siphon without significant stenosis. Left middle cerebral artery: Unremarkable. No occlusion or significant stenosis. No aneurysm. Left anterior cerebral artery: Unremarkable. No occlusion or significant stenosis. No aneurysm. POSTERIOR CIRCULATION: Right vertebral artery: Unremarkable. No occlusion or significant stenosis. No aneurysm. Left vertebral artery: Unremarkable. No occlusion or significant stenosis. No aneurysm. Basilar artery: Unremarkable. No occlusion or significant stenosis. No aneurysm. Right posterior cerebral artery: Unremarkable. No occlusion or significant stenosis. No aneurysm. Left posterior cerebral artery: origin of the left posterior cerebral artery. Brain: Right middle cranial fossa meningioma measures 2.2 by 1.2 cm. Cerebral ventricles: No ventriculomegaly. Bones/joints: Unremarkable. No acute fracture. Soft tissues: Unremarkable. IMPRESSION: 1. No hemodynamically significant stenosis or large vessel occlusion. 2. Meningioma at the right middle cranial fossa measures 2.2 x 1.2 cm. CTA Neck: FINDINGS: Limitations: Artifact arising from metallic dental hardware. Right common carotid artery: No stenosis. No dissection or occlusion. Right internal carotid artery: No stenosis of the extracranial segment. No dissection or occlusion. Right external carotid artery: No occlusion or stenosis of the origin. Left common carotid artery: No stenosis. No dissection or occlusion. Left internal carotid artery: Mild calcification at the proximal left ICA without stenosis. Left external carotid artery: No occlusion or stenosis of the origin. Right vertebral artery: No stenosis. No dissection or occlusion. Left vertebral artery: Left vertebral artery is dominant. 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 Soft tissues: Normal. No significant soft tissue swelling. Bones/joints: There are degenerative changes involving the spine. IMPRESSION: No hemodynamically significant stenosis. Brain MRI: Limitations: The study is severely limited due to patient motion artifact. Brain: There is no definite restricted diffusion to suggest acute infarction. The known meningioma along the right sphenoid wing is poorly visualized on this exam. There is no mass effect or midline shift. Cerebral ventricles: No hydrocephalus. Bones/joints: Unremarkable. Paranasal sinuses: Mild mucosal thickening is present in the right maxillary and left sphenoid sinuses. Mastoid air cells: Normal as visualized. No mastoid effusion. Orbital cavity: Unremarkable. Soft tissues: Unremarkable. IMPRESSION: 1. The study is severely limited due to patient motion artifact. 2. No gross acute intracranial abnormality PROGNOSIS: Good ACTIVITY: As tolerated DIET: Regular DISCHARGE PLAN: [facility] DISPOSITION: 01 Home, Self-Care. DISCHARGE INSTRUCTIONS: Back to [facility]. To follow up with PCP within 7d ITEMS TO FOLLOWUP ON ON OUTPATIENT: PCP follow up. DISCHARGE CONDITION: Stable TIME SPENT ON DISCHARGE: 33 minutes. Vital Signs/I&Os Vital Signs Date Time Temp Pulse Resp B/P (MAP) Pulse Ox O2 Delivery O2 Flow Rate FiO2 08/01/21 05:13 97.8 91 18 118/76 (90) 94 Room Air I&O- Last 24 Hours up to 6 AM 08/01/21 06:00 Intake Total 1920 ml Output Total 175 ml Balance 1745 ml Laboratory Data Labs 24H Laboratory Tests 2 07/31/21 16:26: Bedside Glucose (Misc Panel) 167H 07/31/21 20:44: Bedside Glucose (Misc Panel) 248H 08/01/21 06:00: Nucleated Red Blood Cells % (auto) 0.0, Anion Gap 4L, Glomerular Filtration Rate > 60.0, Calcium Level 9.0, Magnesium Level 2.0 08/01/21 11:27: Bedside Glucose (Misc Panel) 335H CBC/BMP Laboratory Tests 08/01/21 06:00 FSBS Laboratory Tests Test 07/31/21 16:26 07/31/21 20:44 08/01/21 11:27 Range/Units Bedside Glucose (Misc Panel) 167 248 335 80-115 MG/DL Discharge Medications Scheduled Carbamide Peroxide (Debrox) 15 Ml Drops, 5 DROP AU ASDIRECTED, (Reported) TAKES ON 3 CONSECUTIVE NIGHTS EVERY MONTH: TOOK THE 5TH, 6TH AND 7TH OF THIS MONTH ALREADY Cholecalciferol (Vitamin D3) (Vitamin D3) 1,000 Unit Tablet, 2,000 UNITS PO BID, (Reported) 0730, 1700 Clopidogrel Bisulfate (Plavix) 75 Mg Tab, 75 MG PO DAILY, (Reported) Docusate Sodium (Docusate Sodium) 100 Mg Capsule, 100 MG PO QHS, (Reported) Glimepiride (Glimepiride) 2 Mg Tab, 2 MG PO QPM, (Reported) TAKES AT 1700 Insulin Aspart (Novolog Flexpen) 100 Unit/1 Ml Insuln.pen, 1 DOSE SC BID, (Reported) 0730, 1600: PER SLIDING SCALE Linagliptin (Tradjenta) 5 Mg Tablet, 5 MG PO DAILY, (Reported) Memantine HCl (Namenda Xr) 28 Mg Cap, 28 MG PO DAILY, (Reported) Metformin HCl (Metformin HCl) 1,000 Mg Tablet, 1,000 MG PO BID, (Reported) 0730, 1630 Multivitamins (Thera M Plus Tablet) 1 Each Tablet, 1 TAB PO DAILY, (Reported) Olanzapine (Zyprexa) 10 Mg Tab, 10 MG PO QHS, (Reported) Paroxetine HCl (Paroxetine HCl) 40 Mg Tablet, 40 MG PO DAILY, (Reported) Phenytoin (Phenytoin) 50 Mg Tab.chew, 150 MG PO BID, (Reported) Risperidone (Risperdal) 3 Mg Tab, 3 MG PO DAILY, (Reported) Simvastatin (Zocor) 10 Mg Tab, 10 MG PO QHS, (Reported) Trihexyphenidyl HCl (Trihexyphenidyl HCl) 2 Mg Tab, 2 MG PO BID, (Reported) Vitamin E (Vitamin E) 400 Unit Capsule, 400 UNIT PO DAILY, (Reported) Scheduled PRN Diazepam (Valium) 10 Mg Tablet, 10 MG PO ASDIRECTED PRN for ANXIETY, (Reported) TAKE 10MG 1 HOUR BEFORE DENTAL APPOINTMENTS Selenium Sulfide (Selsun Blue) 207 Ml Shampoo, 1 DOSE EXT 2XW PRN for DRY SKIN, (Reported) APPLY TO SCALP Allergies Coded Allergies: aspirin (Verified Allergy, Unknown, 07/21/19) carbamazepine (Verified Allergy, Unknown, 07/21/19) TAM MANN MD Aug 01, 2021 14:46
--- OUTSIDE RECORDS SUMMARY | 2021-09-02 08:09 | CCD ---
Author Author [facility] Organization [facility] Address Unknown Phone Unavailable Care Team Providers Care Exhibitions Curator Name Role Phone Jameel SPIVEY PA Unavailable [...] Unavailable PATRIC, Jameel WARRENEB PA Unavailable Unavailable Jameel SPIVEY PA Unavailable Unavailable PATRIC, Jameel WARRENEB PA Unavailable Unavailable Jameel SPIVEY PA Unavailable [...] is protected by Article 27-F of the [facility] Public Health law. If you continue you may have access to information: Regarding HIV / AIDS; Provided by facilities licensed or operated by the [facility] Office of Mental Health; or Provided by the [facility] Office for People With Developmental Disabilities. If such information is present, then the following [facility] mandated warning applies: This information has [...] law may result in a fine or group home sentence or both. A general authorization for the release of medical or other information is NOT sufficient authorization for further disc losure. Family History Family Member Name Family Member Gender Family Member Status Date o f Status Description Data Source(s) Unknown Unknown Problem [facility] ([facility]) Encounters Encounter Providers Location Date Indications Data Source(s ) Outpatient Attender: SHELLY JACKSON 08/26 10:18:00 AM EST - 08/26/2021 10:18:00 AM EST [facility] Outpatient Attender: SHELLY JACK[facility] 08/26 09:20:00 AM EST [facility] ([facility] Outpatient Attender: SHELLY JACKSON 04/30 10:02:00 AM EDT - 04/30/2021 10:02:00 AM EDT [facility] Outpatient Attender: SHELLY JACKSON [facility] 04/30 10:00:00 AM EDT [facility] ([facility] Outpatient Attender: Katie JACKSON [facility] 03/06/2021 09:00:00 AM EDT [facility] ([facility]) Outpatient Attender: SHELLY JACKSON 01/04 10:09:00 AM EDT - 01/04/2021 10:09:00 AM EDT [facility] Outpatient Attender: SHELLY JACKSON [facility] 01/04 10:00:00 AM EDT [facility] ([facility]) Office Visit Attender: Katie JACKSON [facility] 12/04/2020 10:00:00 AM EDT [facility] ([facility]) Outpatient Attender: SHELLY JACKSON 08/06 09:06:00 AM EST - 08/06/2020 09:06:00 AM EST [facility] Immunizations Vaccine Date Status Description Data Source(s) COVID-19 VACCINE Moderna 11/27/2020 12:00:00 AM EST completed [facility] Vaccine Series Complete: YESThis Data wa s Submitted to [facility] Via [employer]. COVID-19 VACCINE Moderna 10/30/2020 12:00:00 AM EST completed [facility] Vaccine Series Complete: NOThis Data was Submitted to [facility] Via [employer]. Medications Medication Brand Name Start Date Product Form Dose Route Admi nistrative Instructions Pharmacy Instructions Status Indications Reaction Description Data Source(s) Cholecalciferol (Vitamin D3) 11/30/2020 12:00:00 AM EST completed [facility] ([facility]) Insurance Providers Payer name Policy type / Coverage type Policy ID Covered constitution party ID Covered constitution party's relationship to shannon Policy Shannon Plan Information [id number] MEDICARE [id number] [place] Primary [id number] Self [id number] [place] Primary [id number] Self MEDICARE [id number] SP [id number] [place] [id number] SP [id number] P EMED[place] [id number] SP [id number] MEDICAID [id number] SP [id number] Medicaid Medigap Part B [id number] 91.0 Self [id number] Medicare Part B Medicare Primary [id number] Self [id number] [place] Medig[place] Part B [id number] Self [id number] Medicare Natl Gov't Servi Medicare Primary [id number] Self [id number] Medicaid Medigap Part B [id number] 91.0 Self [id number] Medicare Part B Medicare Primary [id number] Self [id number] Medicaid [place] Medigap Part B [id number] Self [id number] Medicare Natl Gov't Servi Medicare Primary [id number] Self [id number] MEDICARE [id number] SP [id number] MEDICARE [id number] SP [id number] Medicaid Medigap Part B [id number] 91.0 Self [id number] Medicare Part B Medicare Primary [id number] Self [id number] MEDICARE C [id number] S [id number] Medicare Natl Gov't Servi Medicare Primary [id number] [id number] Self [id number] Medicaid Medigap Part B [id number] [id number] 91.0 Self [id number] Medicare Part B Medicare Primary [id number] [id number] Self [id number] Medicaid Medigap Part B [id number] [id number] 91.0 Self [id number] Medicare Part B Medicare Primary [id number] [id number] Self [id number] Medicaid Medigap Part B [id number] [id number] 91.0 Self [id number] Medicare Part B Medicare Primary [id number] Self [id number] Medicaid Medigap Part B [id number] 91.0 Self [id number] Medicare Part B Medicare Primary [id number] Self [id number] Medicaid Medigap Part B [id number] 91.0 Self [id number] Medicare Part B Medicare Primary [id number] [id number] Self [id number] Medicaid Medigap Part B [id number] [id number] 91.0 Self [id number] Medicare Part B Medicare Primary [id number] [id number] Self [id number] Medicaid Medigap Part B [id number] [id number] 91.0 Self [id number] Medicare Part B Medicare Primary [id number] [id number] Self [id number] Medicaid Medigap Part B [id number] [id number] 91.0 Self [id number] Medicare Part B Medicare Primary [id number] Self [id number] Medicaid Medigap Part B [id number] 91.0 Self [id number] Medicare Part B Medicare Primary [id number] Self [id number] Medicaid Medigap Part B [id number] 91.0 Self [id number] Medicare Part B Medicare Primary [id number] Self [id number] Medicaid Medigap Part B [id number] 91.0 Self [id number] Medicare Part B Medicare Primary [id number] Self [id number] Medicaid Medigap Part B [id number] 91.0 Self [id number] Medicare Part B Medicare Primary [id number] Self [id number] [place] Med[place] Part B [id number] [id number] Self [id number] Medicaid Medigap Part B 1 1 [id number] 91.0 Self 1 1 Medicare Part B Medicare Primary [id number] Self Medicaid Medicaid [id number] Self Medicare Medicare Primary [id number] Self [id number] [place] Part B [id number] Self MEDICARE CO [id number] MEDICAID [id number] MEDICARE C [id number] S [id number] MEDICAID M [id number] S [id number] MEDICARE [place] [id number] 18 [id number] MEDICAID [id number] SP [id number] Problems, Conditions, and Diagnoses Code Display Name Description Problem Type Effective Dates Data Source(s) X62160 Other residential (current) drug therapy O ther residential (current) drug therapy Diagnosis 08/26/2021 10:18:00 AM [facility] F72 Severe intellectual disabilities Severe intellectual d isabilities Diagnosis 08/26/2021 10:18:00 AM [facility] F918 Other conduct disorders Other conduct disorders Diagno sis 08/26/2021 10:18:00 AM [facility] Z79.899 Taking medication Taking medication Problem 08/06/2020 12:00:00 AM EST [facility] ([facility]) Surgeries/Procedures Procedure Description Date Indications Data Source(s) OFFICE OUTPATIENT VISIT 25 MINUTES 08/26/2021 12:00:00 AM EST [facility] ([facility]) OFFICE OUTPATIENT VISIT 25 MINUTES 04/30/2021 12:00:00 AM EDT [facility] ([facility]) OFFICE OUTPATIENT VISIT 25 MINUTES 01/04/2021 12:00:00 AM EDT [facility] ([facility]) ECHO TTHRC R-T 2D W/WOM-MODE COMPL SPEC&COLR DOP 10/26 12:00:00 AM EST [facility] ([facility]) Results ID Date Data Source [id number] 07/30/2021 11:23:00 PM EST [facility] Name Value Range Interpretation Code Description Data Eva rce(s) Supporting Document(s) SARS coronavirus 2 RNA [Presence] in Res piratory specimen by GEMINI with probe detection NEGATIVE [facility] This lab was ordered by [facility] a nd reported by [facility]. ID Date Data Source [id number] 07/19/2021 02:00:00 PM EDT [facility] Name Value Range Interpretation Code Description Data Eva rce(s) Supporting Document(s) SARS-CoV-2 (COVID 19) NEGATIVE - SARS-CoV-2 (COVID19) [facility] This lab was ordered by [facility] a nd reported by [facility]. Procedure Social History No Information Vital Signs ID Date Data Source UNK Name Value Range Interpretation Code Description Data Source(s) Systolic blood pressure 110 mm[Hg] 110 mm[Hg] M [facility] ([facility] ) Diastolic blood pressure 60 mm[Hg] 60 mm[Hg] [facility] ([facility] ) Heart rate 96 /min 96 /min [facility] ([facility]) Respiratory rate 20 /min 20 /min MARK ( [facility])
--- OUTSIDE RECORDS SUMMARY | 2021-09-02 08:09 | CCD | Continuity of Care Document ---
Author Author Kareem FLYNN Organization Unknown Address [facility] [address] [place] [address] Phone [phone] Problems Active Problems Provider Date Taking medication Karl Flynn PA-C Onset: 08/06/2020 Aggressive behavior JESSICA Powers Onset: 05/04/2018 Severe intellectual disability JESSICA Powers Onset: 0 05/04/2018 Social History Type Date Description Comments Sex Unknown Allergies and adverse reactions Active Allergies Criticality Reaction | Severity Comments Date Aspirin Unable to assess criticality 05/07/2018 Carbamazepine Unable to assess criticality 05/07/2018 Medications Active Medications SIG Qnty Indications Ordering Provide r Date Clopidogrel Bisulfate 75mg Tablets 1 tab by mouth every day 30tabs JESSICA Powers 05/07/20 18 Vitamin E 400Unit Capsules 1 cap by mouth every morning 30caps Unknown Debrox 6.5% Solution 5 drops both ears x3 daily Unknown Tradjenta 5mg Tablets 1 tab by mouth every day 30tabs Unknown Vitamin D3 Tablets 2 tabs by mouth twice a day 120tabs Unknown Namenda XR 28mg Caps ER 24HR 1 tab by mouth every morning 30caps Unknown Selsun Blue Dry Scalp 1% Shampoo Unknown Phenytoin 50mg Chewtabs 3 tabs by mouth twice a day Unknown Risperidone 3mg Tablets 1 by mouth every day every morning 30tabs Girma Rosales MD 00 Simvastatin 10mg Tablets 1 tab by mouth at bedtime 30tabs Unknown Diazepam 10mg Tablets 1 tab by mouth as needed prior to dental appointments 1tabs Unknown Paroxetine HCL 40mg Tablets 1 tab by mouth every morning 30tabs Girma Rosales MD Trihexyphenidyl HCL 2mg Tablets 1 tab by mouth twice a day 180tabs Girma Rosales MD 00 Novolog 100Unit/ML Solution as needed at am and 5pm Unknown Glimepiride 2mg Tablets 1 tab by mouth every day at 5PM 30tabs Unknown Metformin HCL 1000mg Tablets 1 tab by mouth twice a day 60tabs Unknown Olanzapine 10mg Tablets 1 tab by mouth every day at bedtime 30tabs Girma Rosales MD Multivitamin Adults Tablets Unknown Immunizations Description No Information Available Vital Signs Date Vital Result Comment 05/14/2018 9:43am BP Systolic Sitting 115 mmHg BP Diastolic Sitting 71 mmHg Heart Rate 81 /min Body Temperature 97.6 F Oral Respiratory Rate 20 /min O2 % BldC Oximetry 99 % Weight 137.00 lb Weight 62.143 kg Height 64 inches 5'4" BMI (Body Mass Index) 23.5 kg/m2 BSA (Body Surface Area) 1.67 m2 Results Description No Information Available Procedures Date Code Description Status 08/26/2021 17588 Office/Outpatient Established Mo d MDM 30-39 Min Completed 04/30/2021 89932 Office/Outpatient Established Mo d MDM 30-39 Min Completed Medical Devices Description No Information Available Encounters Type Date Location Provider Dx Diagnosis Office Visit 08/26/2021 10[facility] Karl Flynn PA-C F72 Severe intellectual disabilities F91.8 Other conduct disorders Z79.899 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 Assessments Date Code Description Provider 08/26/2021 F72 Severe intellectual disabilities Karl Flynn PA-C 08/26/2021 F91.8 Other conduct disorders Karl allen PA-C 08/26/2021 Z79.899 Other [facility] (current) drug t herapy Karl Flynn PA-C 04/30/2021 F72 Severe intellectual disabilities Karl Flynn PA-C 04/30/2021 F91.8 Other conduct disorders Karl allen PA-C 04/30/2021 Z79.899 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
== END 2021-08-01 12:40 | disposition home or self-care (01) ==
LOC: M ED 20:53 → M ED INP 20:54 → UNDOADMOB 07-31 01:17 → M ED INP 07-31 01:17 → ENRESERV 07-31 11:28 → M MSPAV 07-31 12:04 → M ED INP 07-31 12:04 → UNDODISOB 08-01 12:40
PROVIDERS: ADMIT Internal Medicine; ATTEND Internal Medicine
DX: R29.810 Facial weakness (principal); Z86.69 Personal history of other diseases of the nervous system and sense organs; J06.9 Acute upper respiratory infection, unspecified; B97.4 Respiratory syncytial virus as the cause of diseases classified elsewhere; F72 Severe intellectual disabilities; F03.90 Unspecified dementia, unspecified severity, without behavioral disturbance, psychotic disturbance, mood disturbance, and anxiety; G40.909 Epilepsy, unspecified, not intractable, without status epilepticus; I25.10 Atherosclerotic heart disease of native coronary artery without angina pectoris; E11.9 Type 2 diabetes mellitus without complications; D32.0 Benign neoplasm of cerebral meninges; R25.3 Fasciculation; E78.5 Hyperlipidemia, unspecified; I67.82 Cerebral ischemia; Z79.899 Other long term (current) drug therapy; Z79.02 Long term (current) use of antithrombotics/antiplatelets; Z79.4 Long term (current) use of insulin; Z88.8 Allergy status to other drugs, medicaments and biological substances; Z88.6 Allergy status to analgesic agent
CPT/HCPCS: 36415; 70450; 70496; 70498; 70551; 80047; 80048; 80061; 80185; 83036; 83735; 84439; 84443; 85027; 85610; 85730; 86617; 87631; 93005; 93041; 94760; 96372; 99285; G0378; J1650; Q9967

== ENCOUNTER → 2021-11-16 | Outpatient (CLI) | payer MEDICARE, MEDICAID ==
[~2021-11-16] MED LIST changes: +D31000TA2 PO; +DOCU100C16 PO; +METF10004 PO; +NOVOINJ3 SC; +PHEN50CH PO; +SELS1SHA7 EXT; +VALI10TA PO; +VITA400C53 PO; +VITMTA PO
== END ==
LOC: M RAD 10:22
PROVIDERS: ATTEND Family Medicine
DX: R05.9 Cough, unspecified (principal); J91.8 Pleural effusion in other conditions classified elsewhere; R91.1 Solitary pulmonary nodule

== ENCOUNTER → 2021-12-10 | Outpatient (CLI) | payer MEDICARE, MEDICAID ==
[~2021-12-10] MED LIST changes: +D200CAP3 PO; -D31000TA2 PO; +DILA50HA PO; +LASI40TA9 PO; -PHEN50CH PO; +PHEN50CH2 PO; +TOUJ1.2I SC; +VITA100093 PO
[2021-12-10 08:51] LABS: HEMATOCRIT 31.3 % (42.0-52.0); HEMOGLOBIN 10.8 g/dl (13.5-17.5); MEAN CORPUSCULAR HEMOGLOBIN 32.7 pg (27.0-33.0); MEAN CORPUSCULAR HGB CONC 34.5 g/dl (32.0-36.5); MEAN CORPUSCULAR VOLUME 94.8 fl (80.0-96.0); PLATELET COUNT, AUTOMATED 237 10^3/uL (150-450); WHITE BLOOD COUNT 5.7 10^3/uL (4.0-10.0)
[2021-12-10 09:26] LABS: ALT/SGPT 42 U/L (12-78); BLOOD UREA NITROGEN 19 MG/DL (7-18); CALCIUM LEVEL 8.6 MG/DL (8.8-10.2); CARBON DIOXIDE LEVEL 31 MEQ/L (21-32); CHLORIDE LEVEL 97 MEQ/L (98-107); CREATININE FOR GFR 0.67 MG/DL (0.70-1.30); GLOMERULAR FILTRATION RATE > 60.0 (>42); GLUCOSE, FASTING 127 MG/DL (70-100); POTASSIUM SERUM 4.5 MEQ/L (3.5-5.1); SODIUM LEVEL 133 MEQ/L (136-145)
[2021-12-10 09:27] LABS: ALBUMIN 3.1 GM/DL (3.2-5.2); BILIRUBIN,TOTAL 0.3 MG/DL (0.2-1.0); NT-PRO BNP 6023 PG/ML (<125); TOTAL PROTEIN 6.6 GM/DL (6.4-8.2)
== END ==
LOC: M RAD 07:39
PROVIDERS: ATTEND Family Medicine
DX: R60.9 Edema, unspecified (principal)

== ENCOUNTER 2021-12-11 11:43 | Inpatient (IN) | payer MEDICARE, MEDICAID ==
[~2021-12-11] VITALS: Ht 162.6 cm; Wt 69.1 kg
[~2021-12-11 11:43] MED LIST changes: -D200CAP3 PO; -DILA50HA PO; -LASI40TA9 PO; -TOUJ1.2I SC
[2021-12-11 12:48] LABS: BASO % 0.4 % (0.0-1.0); EOS # 0.3 10^3/uL (0.0-0.5); EOS % 6.7 % (0.0-3.0); HEMATOCRIT 30.5 % (42.0-52.0); HEMOGLOBIN 10.3 g/dl (13.5-17.5); LYMPH % 21.3 % (24.0-44.0); MEAN CORPUSCULAR HGB CONC 33.8 g/dl (32.0-36.5); MEAN CORPUSCULAR VOLUME 94.7 fl (80.0-96.0); MONO # 0.6 10^3/uL (0.0-0.8); MONO % 11.8 % (2.0-8.0); NEUTROPHILS # 2.8 10^3/uL (1.5-8.5); NEUTROPHILS % 59.4 % (36.0-66.0); PLATELET COUNT, AUTOMATED 230 10^3/uL (150-450); RED BLOOD COUNT 3.22 10^6/uL (4.30-6.10); WHITE BLOOD COUNT 4.8 10^3/uL (4.0-10.0)
[2021-12-11 13:25] LABS: ALBUMIN 2.8 GM/DL (3.2-5.2); ALT/SGPT 42 U/L (12-78); BILIRUBIN,DIRECT 0.1 MG/DL (0.0-0.2); BILIRUBIN,TOTAL 0.2 MG/DL (0.2-1.0); BLOOD UREA NITROGEN 18 MG/DL (7-18); CALCIUM LEVEL 8.7 MG/DL (8.8-10.2); CARBON DIOXIDE LEVEL 26 MEQ/L (21-32); CHLORIDE LEVEL 95 MEQ/L (98-107); CREATININE FOR GFR 0.86 MG/DL (0.70-1.30); FREE T4 0.88 NG/DL (0.76-1.46); GLOMERULAR FILTRATION RATE > 60.0 (>42); GLUCOSE, FASTING 135 MG/DL (70-100); LIPASE 94 U/L (73-393); NT-PRO BNP 6320 PG/ML (<125); POTASSIUM SERUM 4.7 MEQ/L (3.5-5.1); SODIUM LEVEL 129 MEQ/L (136-145); TOTAL PROTEIN 6.2 GM/DL (6.4-8.2)
[2021-12-11] MEDS ORDERED: FUROSEMIDE 40MG/4ML VIAL (J1940) IV ONE (15:00)
[2021-12-11] MEDS ORDERED: D200CAP3 PO (15:21)
[2021-12-11] MEDS ORDERED: DILA50HA PO (15:21)
[2021-12-11] MEDS ORDERED: TOUJ1.2I SC (15:21)
[2021-12-11] MEDS ORDERED: HOME MED LIST COMPLETE! XX SCH (15:25)
[2021-12-11] MEDS ORDERED: GLUCOSE 4GM CHEW TABLET PO PRN (15:30)
[2021-12-11] MEDS ORDERED: GLUCAGON INJ 1MG VIAL SC PRN (15:30)
[2021-12-11] MEDS ORDERED: DEXTROSE 50% 50 ML SYRINGE IV PRN (15:30)
[2021-12-11 15:54] LABS: RSV AMPLIFICATION NEGATIVE (NEGATIVE)
[2021-12-11 16:00] LABS: OSMOLALITY SERUM 273 MOSM/KG (280-301)
[2021-12-11] MEDS: ENOXAPARIN 40MG/0.4ML SYRINGE (J1650 PER 10MG) SC SCH (17:14)
[2021-12-11] MEDS ORDERED: LASI40TA9 PO (18:09)
[2021-12-11 18:43] LABS: MAGNESIUM LEVEL 1.9 MG/DL (1.8-2.4); PHOSPHORUS LEVEL 3.7 MG/DL (2.5-4.9)
[2021-12-11 18:44] LABS: BLOOD UREA NITROGEN 18 MG/DL (7-18); CALCIUM LEVEL 8.5 MG/DL (8.8-10.2); CARBON DIOXIDE LEVEL 32 MEQ/L (21-32); CHLORIDE LEVEL 94 MEQ/L (98-107); CREATININE FOR GFR 0.67 MG/DL (0.70-1.30); GLOMERULAR FILTRATION RATE > 60.0 (>42); GLUCOSE, FASTING 160 MG/DL (70-100); POTASSIUM SERUM 4.9 MEQ/L (3.5-5.1); SODIUM LEVEL 129 MEQ/L (136-145)
[2021-12-11 19:20] VITALS: BP 136/90
[2021-12-11] MEDS: HumaLOG INSULIN (NovoLOG) PER UNIT SC SCH (20:02)
[2021-12-11] MEDS: TRIHEXYPHENIDYL 2 MG TAB PO SCH (20:55)
[2021-12-11] MEDS ORDERED: HumaLOG INSULIN (NovoLOG) PER UNIT SC SCH (21:00)
[2021-12-11] MEDS ORDERED: OLANZapine 10 MG TAB PO SCH (21:00)
[2021-12-11] MEDS ORDERED: DOCUSATE SODIUM 100MG CAPSULE PO SCH (21:00)
[2021-12-11] MEDS ORDERED: SIMVASTATIN 10 MG TAB PO SCH (21:00)
[2021-12-11] MEDS: IPRATROPIUM 0.5MG/ALBUTEROL 2.5MG INH SOL UD 3ML (DUONEB) NEB SCH ×2 (21:02→21:03)
[2021-12-11 21:07] LABS: OSMOLALITY URINE 306 MOSM/KG (50-1400)
[2021-12-11 21:09] LABS: APPEARANCE, URINE CLEAR (CLEAR); BACTERIA, URINE AUTO NEGATIVE (NEGATIVE); BILIRUBIN, URINE AUTO NEGATIVE (NEGATIVE); BLOOD, URINE BLOOD NEGATIVE (NEGATIVE); COLOR, URINE STRAW (YELLOW); GLUCOSE, URINE (UA) AUTO NEGATIVE (NEGATIVE); KETONE, URINE AUTO NEGATIVE (NEGATIVE); LEUKOCYTE ESTERASE, URINE AUTO NEGATIVE (NEGATIVE); NITRITE, URINE AUTO NEGATIVE (NEGATIVE); PROTEIN, URINE AUTO NEGATIVE (NEGATIVE); RBC, URINE AUTO 2 /HPF (0-3); SPECIFIC GRAVITY URINE AUTO 1.005 (1.002-1.035); SQUAMOUS EPITHELIAL CELL UR AU 0 /HPF (0-6); UROBILINOGEN, URINE AUTO 0.2 mg/dL (0.0-2.0); WBC, URINE AUTO 2 /HPF (0-3)
[2021-12-11 21:19] LABS: SODIUM,RANDOM URINE 102 MEQ/L
[2021-12-11] MEDS: PHENYTOIN 50 MG CHEW TABLET PO SCH (21:46)
[2021-12-12] VITALS (22 sets, daily range): BP systolic 88–122; BP diastolic 55–78
[2021-12-12] MEDS: FUROSEMIDE 40MG/4ML VIAL (J1940) IV SCH ×3 (01:25→17:15)
[2021-12-12] MEDS: IPRATROPIUM 0.5MG/ALBUTEROL 2.5MG INH SOL UD 3ML (DUONEB) NEB SCH ×3 (02:28→13:00)
[2021-12-12 06:03] LABS: BASO % 0.2 % (0.0-1.0); EOS # 0.4 10^3/uL (0.0-0.5); EOS % 9.2 % (0.0-3.0); HEMATOCRIT 29.7 % (42.0-52.0); HEMOGLOBIN 10.3 g/dl (13.5-17.5); LYMPH # 0.7 10^3/uL (1.5-5.0); LYMPH % 17.8 % (24.0-44.0); MEAN CORPUSCULAR HEMOGLOBIN 32.2 pg (27.0-33.0); MEAN CORPUSCULAR HGB CONC 34.7 g/dl (32.0-36.5); MEAN CORPUSCULAR VOLUME 92.8 fl (80.0-96.0); MONO # 0.5 10^3/uL (0.0-0.8); NEUTROPHILS # 2.5 10^3/uL (1.5-8.5); NEUTROPHILS % 59.3 % (36.0-66.0); PLATELET COUNT, AUTOMATED 227 10^3/uL (150-450); WHITE BLOOD COUNT 4.2 10^3/uL (4.0-10.0)
[2021-12-12 06:26] LABS: BLOOD UREA NITROGEN 16 MG/DL (7-18); CALCIUM LEVEL 8.3 MG/DL (8.8-10.2); CARBON DIOXIDE LEVEL 31 MEQ/L (21-32); CHLORIDE LEVEL 91 MEQ/L (98-107); CREATININE FOR GFR 0.65 MG/DL (0.70-1.30); GLOMERULAR FILTRATION RATE > 60.0 (>42); GLUCOSE, FASTING 160 MG/DL (70-100); MAGNESIUM LEVEL 1.5 MG/DL (1.8-2.4); PHOSPHORUS LEVEL 4.7 MG/DL (2.5-4.9); SODIUM LEVEL 130 MEQ/L (136-145)
[2021-12-12] MEDS: HumaLOG INSULIN (NovoLOG) PER UNIT SC SCH ×4 (07:30→17:16)
[2021-12-12] MEDS ORDERED: CLOPIDOGREL 75 MG TAB PO SCH (09:00)
[2021-12-12] MEDS ORDERED: PARoxetine 20MG TABLET PO SCH (09:00)
[2021-12-12] MEDS ORDERED: risperiDONE 3 MG TAB PO SCH (09:00)
[2021-12-12] MEDS: ENOXAPARIN 40MG/0.4ML SYRINGE (J1650 PER 10MG) SC SCH (09:40)
[2021-12-12] MEDS: TRIHEXYPHENIDYL 2 MG TAB PO SCH (09:40)
[2021-12-12] MEDS: PHENYTOIN 50 MG CHEW TABLET PO SCH (09:41)
[2021-12-12] MEDS: MAG SULF 1GM/100ML (MAG RUN) 1 GM in IV 1 EA IV SCH ×2 (09:42→11:08)
[2021-12-12] MEDS ORDERED: ADENOSINE 6MG/2ML INJECTION (J0153) As Ordered ONE ×2 (14:42→14:51)
[2021-12-12] MEDS ORDERED: ADENOSINE 6MG/2ML INJECTION (J0153) IV STA ×2 (14:48→14:54)
[2021-12-12] MEDS ORDERED: METOPROLOL 5 MG/5 ML VIAL As Ordered ONE (14:57)
[2021-12-12] MEDS ORDERED: DIGOXIN INJ 0.5 MG/2 ML AMP (J1160) As Ordered ONE (15:08)
[2021-12-12] MEDS ORDERED: METOPROLOL 5 MG/5 ML VIAL IV STA (15:12)
[2021-12-12] MEDS ORDERED: DIGOXIN INJ 0.5 MG/2 ML AMP (J1160) IV STA (15:12)
== END 2021-12-12 18:08 | disposition short-term general hospital (02) | DRG 307 ==
LOC: M ED 11:43 → M ED INP 15:20 → M MSPAV 19:42 → M ICU 12-12 14:40
PROVIDERS: ADMIT Internal Medicine; ATTEND Internal Medicine
DX: I08.0 Rheumatic disorders of both mitral and aortic valves (principal); E87.1 Hypo-osmolality and hyponatremia; F72 Severe intellectual disabilities; E11.9 Type 2 diabetes mellitus without complications; E78.5 Hyperlipidemia, unspecified; I25.10 Atherosclerotic heart disease of native coronary artery without angina pectoris; G40.909 Epilepsy, unspecified, not intractable, without status epilepticus; F03.90 Unspecified dementia, unspecified severity, without behavioral disturbance, psychotic disturbance, mood disturbance, and anxiety; F17.210 Nicotine dependence, cigarettes, uncomplicated; Z79.02 Long term (current) use of antithrombotics/antiplatelets; Z79.4 Long term (current) use of insulin; Z79.899 Other long term (current) drug therapy; Z88.6 Allergy status to analgesic agent; Z88.8 Allergy status to other drugs, medicaments and biological substances

== ENCOUNTER 2022-02-04 15:21 | Emergency (ER) | payer MEDICARE, MEDICAID ==
[~2022-02-04] VITALS: Ht 167.6 cm; Wt 69.0 kg
[~2022-02-04 15:21] MED LIST changes: +D200CAP3 PO; +DILA50HA PO; +LASI40TA9 PO; +TOUJ1.2I SC
[2022-02-04 17:30] VITALS: BP 164/89
[2022-02-04 17:35] LABS: BASO % 0.8 % (0.0-1.0); EOS # 0.3 10^3/uL (0.0-0.5); EOS % 6.6 % (0.0-3.0); HEMATOCRIT 35.5 % (42.0-52.0); HEMOGLOBIN 11.4 g/dl (13.5-17.5); LYMPH # 1.4 10^3/uL (1.5-5.0); LYMPH % 35.8 % (24.0-44.0); MEAN CORPUSCULAR HEMOGLOBIN 29.2 pg (27.0-33.0); MEAN CORPUSCULAR HGB CONC 32.1 g/dl (32.0-36.5); MONO # 0.4 10^3/uL (0.0-0.8); MONO % 11.3 % (2.0-8.0); NEUTROPHILS # 1.7 10^3/uL (1.5-8.5); NEUTROPHILS % 45.2 % (36.0-66.0); PLATELET COUNT, AUTOMATED 193 10^3/uL (150-450); WHITE BLOOD COUNT 3.8 10^3/uL (4.0-10.0)
[2022-02-04 17:48] LABS: INR 1.33; PROTHROMBIN TIME 16.9 SECONDS (12.7-14.5)
[2022-02-04 18:07] LABS: BLOOD UREA NITROGEN 26 MG/DL (7-18); CALCIUM LEVEL 9.5 MG/DL (8.8-10.2); CARBON DIOXIDE LEVEL 30 MEQ/L (21-32); CHLORIDE LEVEL 101 MEQ/L (98-107); CREATININE FOR GFR 0.86 MG/DL (0.70-1.30); GLOMERULAR FILTRATION RATE > 60.0 (>42); GLUCOSE, FASTING 164 MG/DL (70-100); POTASSIUM SERUM 4.6 MEQ/L (3.5-5.1); SODIUM LEVEL 136 MEQ/L (136-145)
[2022-02-04 18:30] VITALS: O2SAT 98
== END 2022-02-04 18:53 | disposition home or self-care (01) ==
LOC: EDBD 15:21 → M ED 15:21
DX: R10.9 Unspecified abdominal pain (principal); F03.90 Unspecified dementia, unspecified severity, without behavioral disturbance, psychotic disturbance, mood disturbance, and anxiety; F72 Severe intellectual disabilities; G40.909 Epilepsy, unspecified, not intractable, without status epilepticus; Z79.899 Other long term (current) drug therapy; Z79.84 Long term (current) use of oral hypoglycemic drugs; Z79.4 Long term (current) use of insulin; Z79.01 Long term (current) use of anticoagulants; Z88.8 Allergy status to other drugs, medicaments and biological substances; F17.210 Nicotine dependence, cigarettes, uncomplicated

== ENCOUNTER → 2022-02-20 | Outpatient (CLI) | payer MEDICARE, MEDICAID ==
[2022-02-20 11:23] LABS: INR 1.05; PROTHROMBIN TIME 14.1 SECONDS (12.7-14.5)
== END ==
LOC: M LAB 10:01
PROVIDERS: ATTEND Family Medicine
DX: Z79.01 Long term (current) use of anticoagulants (principal)

== ENCOUNTER → 2022-10-07 | Outpatient (CLI) | payer MEDICARE, MEDICAID ==
[~2022-10-07] MED LIST changes: +CLOP75TA99 PO; -PLAV1TAB2 PO; +SIMV-252 PO; -ZOCO10TA PO
[2022-10-07 11:40] LABS: BLOOD UREA NITROGEN 35 MG/DL (9-23); CALCIUM LEVEL 9.2 MG/DL (8.3-10.6); CARBON DIOXIDE LEVEL 26 MMOL/L (20-31); CHLORIDE LEVEL 100 MMOL/L (98-107); CREATININE FOR GFR 0.76 MG/DL (0.70-1.30); GLOMERULAR FILTRATION RATE > 60.0 (>42); GLUCOSE, FASTING 182 MG/DL (74-106); POTASSIUM SERUM 4.9 MMOL/L (3.5-5.1); SODIUM LEVEL 138 MMOL/L (136-145)
== END ==
LOC: M LAB 10:38
PROVIDERS: ATTEND Physician Assistant
DX: I50.32 Chronic diastolic (congestive) heart failure (principal)

== ENCOUNTER → 2022-10-07 | Outpatient (CLI) | payer MEDICARE, MEDICAID ==
[2022-10-07 11:23] LABS: BASO % 0.2 % (0.0-1.0); EOS # 0.9 10^3/uL (0.0-0.5); EOS % 13.4 % (0.0-3.0); HEMATOCRIT 39.6 % (42.0-52.0); HEMOGLOBIN 12.7 g/dl (13.5-17.5); LYMPH % 31.7 % (24.0-44.0); MEAN CORPUSCULAR HGB CONC 32.1 g/dl (32.0-36.5); MEAN CORPUSCULAR VOLUME 99.7 fl (80.0-96.0); MONO # 0.4 10^3/uL (0.0-0.8); MONO % 6.6 % (2.0-8.0); NEUTROPHILS % 47.6 % (36.0-66.0); PLATELET COUNT, AUTOMATED 149 10^3/uL (150-450); RED BLOOD COUNT 3.97 10^6/uL (4.30-6.10); WHITE BLOOD COUNT 6.4 10^3/uL (4.0-10.0)
[2022-10-07 11:44] LABS: ALBUMIN 3.4 G/DL (3.2-5.2); ALKALINE PHOSPHATASE 189 U/L (46-116); ALT/SGPT 30 U/L (7.0-40); AST/SGOT 23 U/L (<34); BILIRUBIN,TOTAL < 0.2 MG/DL (0.3-1.2); BLOOD UREA NITROGEN 36 MG/DL (9-23); CALCIUM LEVEL 9.4 MG/DL (8.3-10.6); CARBON DIOXIDE LEVEL 26 MMOL/L (20-31); CHLORIDE LEVEL 101 MMOL/L (98-107); CHOLESTEROL LEVEL 149 MG/DL (<200); CHOLESTEROL RISK RATIO 2.55 (<5); CREATININE FOR GFR 0.78 MG/DL (0.70-1.30); GLOMERULAR FILTRATION RATE > 60.0 (>42); GLUCOSE, FASTING 182 MG/DL (74-106); HDL CHOLESTEROL 58.4 MG/DL (>40); NON-HDL-C 91 MG/DL; POTASSIUM SERUM 4.9 MMOL/L (3.5-5.1); SODIUM LEVEL 137 MMOL/L (136-145); TOTAL PROTEIN 7.2 G/DL (5.7-8.2); TRIGLYCERIDES LEVEL 118 MG/DL (<150)
[2022-10-07 11:46] LABS: PROLACTIN 63.09 NG/ML (2.1-17.7)
== END ==
LOC: M LAB 10:40
PROVIDERS: ATTEND Physician Assistant
DX: Z79.899 Other long term (current) drug therapy (principal)

== ENCOUNTER 2022-12-14 09:59 | Inpatient (IN) | payer MEDICARE, MEDICAID ==
[~2022-12-14] VITALS: Ht 154.9 cm; Wt 66.3 kg
[2022-12-14 11:54] LABS: BASO % 0.4 % (0.0-1.0); EOS # 0.7 10^3/uL (0.0-0.5); EOS % 12.6 % (0.0-3.0); HEMOGLOBIN 12.7 g/dl (13.5-17.5); LYMPH # 1.6 10^3/uL (1.5-5.0); LYMPH % 28.5 % (24.0-44.0); MEAN CORPUSCULAR HEMOGLOBIN 33.2 pg (27.0-33.0); MEAN CORPUSCULAR HGB CONC 33.4 g/dl (32.0-36.5); MEAN CORPUSCULAR VOLUME 99.2 fl (80.0-96.0); MONO # 0.4 10^3/uL (0.0-0.8); MONO % 6.9 % (2.0-8.0); NEUTROPHILS # 2.8 10^3/uL (1.5-8.5); NEUTROPHILS % 51.1 % (36.0-66.0); PLATELET COUNT, AUTOMATED 168 10^3/uL (150-450); RED BLOOD COUNT 3.83 10^6/uL (4.30-6.10); WHITE BLOOD COUNT 5.5 10^3/uL (4.0-10.0)
[2022-12-14 12:09] LABS: INR 0.93; PROTHROMBIN TIME 12.7 SECONDS (12.5-14.5)
[2022-12-14 12:10] LABS: PARTIAL THROMBOPLASTIN TIME 28.6 SECONDS (24.8-34.2)
[2022-12-14 12:22] LABS: LIPASE 31 U/L (12-53); PHENYTOIN (DILANTIN) 7.7 UG/ML (10.0-20.0)
[2022-12-14 12:25] LABS: ALBUMIN 3.3 G/DL (3.2-5.2); ALKALINE PHOSPHATASE 225 U/L (46-116); ALT/SGPT 33 U/L (7.0-40); AST/SGOT 28 U/L (<34); BILIRUBIN,DIRECT < 0.1 MG/DL (<0.4); BILIRUBIN,TOTAL 0.2 MG/DL (0.3-1.2)
[2022-12-14 12:32] LABS: RSV AMPLIFICATION NEGATIVE (NEGATIVE)
[2022-12-14 12:37] LABS: TOTAL PROTEIN 7.1 G/DL (5.7-8.2)
[2022-12-14] MEDS ORDERED: NS 1,000 ML IV ONE (13:00)
[2022-12-14] MEDS: NS 1,000 ML IV SCH ×4 (13:50→23:29)
[2022-12-14 14:33] VITALS: BP 124/76
[2022-12-14] MEDS ORDERED: FERR32TA PO (14:43)
[2022-12-14] MEDS ORDERED: METO1TAB32 PO (14:43)
[2022-12-14] MEDS ORDERED: ECOT81TA5 PO (14:43)
[2022-12-14] MEDS ORDERED: DEBR6.5S4 AU (14:56)
[2022-12-14] MEDS ORDERED: VITA100054 PO (14:56)
[2022-12-14] MEDS ORDERED: MOME0.1O3 TOP (14:56)
[2022-12-14] MEDS ORDERED: HOME MED LIST COMPLETE! XX SCH (15:00)
[2022-12-14 16:15] VITALS: BP 120/62
[2022-12-14] MEDS: PIPERACILLIN/TAZOBACTAM SOD 3.375 GM in D5W MINI-BAG PLUS 50 ML IV SCH ×2 (18:05→23:29)
[2022-12-14 20:00] VITALS: BP 139/62
[2022-12-14] MEDS: PHENYTOIN 50MG CHEW TABLET PO SCH (20:03)
[2022-12-14] MEDS: DOCUSATE SODIUM 100MG CAPSULE PO SCH (20:03)
[2022-12-14] MEDS: TRIHEXYPHENIDYL 2 MG TAB PO SCH (20:03)
[2022-12-14] MEDS: SIMVASTATIN 10 MG TAB PO SCH (20:03)
[2022-12-14] MEDS: OLANZapine 10 MG TAB PO SCH (20:03)
[2022-12-14 20:12] LABS: HEMATOCRIT 38.4 % (42.0-52.0); HEMOGLOBIN 12.8 g/dl (13.5-17.5)
[2022-12-14] MEDS ORDERED: ACETAMINOPH W/CODEINE #3 TAB UD PO ONE (21:00)
[2022-12-14 23:19] VITALS: BP 132/70
[2022-12-15] MEDS ORDERED: ACETAMINOPHEN TAB 650MG DOSE (2X325MG) PO PRN
[2022-12-15 04:21] VITALS: BP 138/73
[2022-12-15] MEDS: PIPERACILLIN/TAZOBACTAM SOD 3.375 GM in D5W MINI-BAG PLUS 50 ML IV SCH ×3 (05:10→18:14)
[2022-12-15 06:44] LABS: HEMATOCRIT 34.6 % (42.0-52.0); HEMOGLOBIN 11.6 g/dl (13.5-17.5); MEAN CORPUSCULAR HEMOGLOBIN 32.9 pg (27.0-33.0); MEAN CORPUSCULAR HGB CONC 33.5 g/dl (32.0-36.5); PLATELET COUNT, AUTOMATED 156 10^3/uL (150-450); RED BLOOD COUNT 3.53 10^6/uL (4.30-6.10)
[2022-12-15 07:12] LABS: ALBUMIN 2.9 G/DL (3.2-5.2); ALKALINE PHOSPHATASE 196 U/L (46-116); ALT/SGPT 31 U/L (7.0-40); AST/SGOT 23 U/L (<34); BILIRUBIN,TOTAL 0.2 MG/DL (0.3-1.2); BLOOD UREA NITROGEN 17 MG/DL (9-23); CALCIUM LEVEL 8.6 MG/DL (8.3-10.6); CARBON DIOXIDE LEVEL 30 MMOL/L (20-31); CHLORIDE LEVEL 104 MMOL/L (98-107); CREATININE FOR GFR 0.75 MG/DL (0.70-1.30); GLOMERULAR FILTRATION RATE > 60.0 (>42); GLUCOSE, FASTING 197 MG/DL (74-106); POTASSIUM SERUM 4.4 MMOL/L (3.5-5.1); SODIUM LEVEL 138 MMOL/L (136-145); TOTAL PROTEIN 6.4 G/DL (5.7-8.2)
[2022-12-15 08:30] VITALS: BP 129/72
[2022-12-15] MEDS: TRIHEXYPHENIDYL 2 MG TAB PO SCH ×2 (08:46→20:31)
[2022-12-15] MEDS: risperiDONE 3 MG TAB PO SCH (08:46)
[2022-12-15] MEDS: MULTIVITAMINS/MINERALS THERAP 1 TAB PO SCH (08:47)
[2022-12-15] MEDS: PHENYTOIN 50MG CHEW TABLET PO SCH ×2 (08:47→20:31)
[2022-12-15] MEDS: PARoxetine 20MG TABLET PO SCH (08:47)
[2022-12-15] MEDS: ASPIRIN 81MG ENTERIC TABLET PO SCH (08:47)
[2022-12-15] MEDS: METOPROLOL SUCC *XL* 25MG TAB (TopROL *XL*) PO SCH (08:48)
[2022-12-15] MEDS: FERROUS GLUCONATE 324 MG TAB PO SCH (08:48)
[2022-12-15 12:02] VITALS: BP 129/73
[2022-12-15] MEDS ORDERED: ONDANSETRON 4MG 2ML VIAL As Ordered ONE (14:24)
[2022-12-15] MEDS ORDERED: ROCURONIUM BROMIDE 50MG/5ML VIAL As Ordered ONE ×2 (14:24→14:48)
[2022-12-15] MEDS ORDERED: MIDAZOLAM INJ 2MG/2ML VIAL As Ordered ONE (14:24)
[2022-12-15] MEDS ORDERED: METOCLOPRAMIDE INJ 10MG/2ML VIAL As Ordered ONE (14:24)
[2022-12-15] MEDS ORDERED: LIDOCAINE 2% 100MG/5ML SDV (FOR ANES.) As Ordered ONE (14:24)
[2022-12-15] MEDS ORDERED: SUGAMMADEX SODIUM 500 MG/5 ML VIAL (BRIDION) As Ordered ONE (14:24)
[2022-12-15] MEDS ORDERED: fentaNYL 100 MCG/2 ML INJECTION As Ordered ONE ×2 (14:24→15:00)
[2022-12-15] MEDS ORDERED: ACETAMINOPHEN 1000MG 100ML IV BAG As Ordered ONE (14:26)
[2022-12-15] MEDS ORDERED: PHENYLephrine 500MCG 5ML (100MCG/ML) SYRINGE As Ordered ONE (15:11)
[2022-12-15 16:37] VITALS: BP 138/77
[2022-12-15 19:39] VITALS: BP 151/83
[2022-12-15] MEDS: OLANZapine 10 MG TAB PO SCH (20:29)
[2022-12-15] MEDS: SIMVASTATIN 10 MG TAB PO SCH (20:30)
[2022-12-15] MEDS: DOCUSATE SODIUM 100MG CAPSULE PO SCH (20:30)
[2022-12-16 00:10] VITALS: BP 162/88
[2022-12-16 04:00] VITALS: BP 132/70
[2022-12-16] MEDS: PIPERACILLIN/TAZOBACTAM SOD 3.375 GM in D5W MINI-BAG PLUS 50 ML IV SCH ×5 (06:14→17:34)
[2022-12-16 06:25] LABS: HEMATOCRIT 36.8 % (42.0-52.0); HEMOGLOBIN 12.2 g/dl (13.5-17.5); MEAN CORPUSCULAR HEMOGLOBIN 32.4 pg (27.0-33.0); MEAN CORPUSCULAR HGB CONC 33.2 g/dl (32.0-36.5); MEAN CORPUSCULAR VOLUME 97.6 fl (80.0-96.0); PLATELET COUNT, AUTOMATED 174 10^3/uL (150-450); RED BLOOD COUNT 3.77 10^6/uL (4.30-6.10); WHITE BLOOD COUNT 7.2 10^3/uL (4.0-10.0)
[2022-12-16 06:42] LABS: BLOOD UREA NITROGEN 17 MG/DL (9-23); CALCIUM LEVEL 8.6 MG/DL (8.3-10.6); CARBON DIOXIDE LEVEL 31 MMOL/L (20-31); CHLORIDE LEVEL 100 MMOL/L (98-107); CREATININE FOR GFR 0.86 MG/DL (0.70-1.30); GLOMERULAR FILTRATION RATE > 60.0 (>42); GLUCOSE, FASTING 365 MG/DL (74-106); POTASSIUM SERUM 4.7 MMOL/L (3.5-5.1); SODIUM LEVEL 136 MMOL/L (136-145)
[2022-12-16] MEDS ORDERED: GLUCAGON INJ 1MG VIAL SC PRN (07:25)
[2022-12-16] MEDS ORDERED: DEXTROSE 50% 50ML SYRINGE IV PRN (07:25)
[2022-12-16] MEDS ORDERED: GLUCOSE 4GM CHEW TABLET PO PRN (07:25)
[2022-12-16] MEDS ORDERED: ISOVUE-370 76% 100ML VIAL As Ordered ONE (07:33)
[2022-12-16 07:51] VITALS: BP 158/80
[2022-12-16] MEDS: risperiDONE 3 MG TAB PO SCH (08:39)
[2022-12-16] MEDS: PARoxetine 20MG TABLET PO SCH (08:39)
[2022-12-16] MEDS: MULTIVITAMINS/MINERALS THERAP 1 TAB PO SCH (08:39)
[2022-12-16] MEDS: METOPROLOL SUCC *XL* 25MG TAB (TopROL *XL*) PO SCH (08:39)
[2022-12-16] MEDS: FERROUS GLUCONATE 324 MG TAB PO SCH (08:39)
[2022-12-16] MEDS: TRIHEXYPHENIDYL 2 MG TAB PO SCH ×2 (08:39→21:12)
[2022-12-16] MEDS: PHENYTOIN 50MG CHEW TABLET PO SCH ×2 (08:39→21:12)
[2022-12-16] MEDS: ASPIRIN 81MG ENTERIC TABLET PO SCH (08:39)
[2022-12-16] MEDS: INSULIN LISPRO (NovoLOG) PER UNIT SC SCH ×4 (08:40→21:13)
[2022-12-16 12:20] VITALS: BP 136/72
[2022-12-16 15:38] VITALS: BP 117/59
[2022-12-16 20:15] VITALS: BP 125/69
[2022-12-16] MEDS: SIMVASTATIN 10 MG TAB PO SCH (21:12)
[2022-12-16] MEDS: OLANZapine 10 MG TAB PO SCH (21:12)
[2022-12-16] MEDS: DOCUSATE SODIUM 100MG CAPSULE PO SCH (21:12)
[2022-12-17] VITALS (9 sets, daily range): BP systolic 105–163; BP diastolic 58–80
[2022-12-17 05:49] LABS: BASO % 0.3 % (0.0-1.0); EOS # 0.6 10^3/uL (0.0-0.5); EOS % 8.4 % (0.0-3.0); HEMATOCRIT 33.5 % (42.0-52.0); HEMOGLOBIN 11.3 g/dl (13.5-17.5); LYMPH # 1.8 10^3/uL (1.5-5.0); LYMPH % 23.7 % (24.0-44.0); MEAN CORPUSCULAR HEMOGLOBIN 32.5 pg (27.0-33.0); MEAN CORPUSCULAR HGB CONC 33.7 g/dl (32.0-36.5); MEAN CORPUSCULAR VOLUME 96.3 fl (80.0-96.0); MONO # 0.7 10^3/uL (0.0-0.8); MONO % 9.2 % (2.0-8.0); NEUTROPHILS # 4.3 10^3/uL (1.5-8.5); NEUTROPHILS % 57.6 % (36.0-66.0); PLATELET COUNT, AUTOMATED 160 10^3/uL (150-450); RED BLOOD COUNT 3.48 10^6/uL (4.30-6.10); WHITE BLOOD COUNT 7.5 10^3/uL (4.0-10.0)
[2022-12-17] MEDS: PIPERACILLIN/TAZOBACTAM SOD 3.375 GM in D5W MINI-BAG PLUS 50 ML IV SCH ×4 (06:06→12:40)
[2022-12-17 06:15] LABS: ALBUMIN 2.7 G/DL (3.2-5.2); ALKALINE PHOSPHATASE 163 U/L (46-116); ALT/SGPT 27 U/L (7.0-40); AST/SGOT 17 U/L (<34); BILIRUBIN,TOTAL 0.2 MG/DL (0.3-1.2); BLOOD UREA NITROGEN 21 MG/DL (9-23); CALCIUM LEVEL 8.6 MG/DL (8.3-10.6); CARBON DIOXIDE LEVEL 30 MMOL/L (20-31); CHLORIDE LEVEL 102 MMOL/L (98-107); GLOMERULAR FILTRATION RATE > 60.0 (>42); GLUCOSE, FASTING 199 MG/DL (74-106); MAGNESIUM LEVEL 1.7 MG/DL (1.8-2.4); POTASSIUM SERUM 3.8 MMOL/L (3.5-5.1); SODIUM LEVEL 140 MMOL/L (136-145); TOTAL PROTEIN 6.1 G/DL (5.7-8.2)
[2022-12-17] MEDS ORDERED: MAGNESIUM OXIDE 400MG TAB (MAG-OX) PO ONE (08:00)
[2022-12-17] MEDS: INSULIN LISPRO (NovoLOG) PER UNIT SC SCH ×4 (09:03→20:53)
[2022-12-17] MEDS: ASPIRIN 81MG ENTERIC TABLET PO SCH (09:04)
[2022-12-17] MEDS: PHENYTOIN 50MG CHEW TABLET PO SCH ×2 (09:04→20:52)
[2022-12-17] MEDS: METOPROLOL SUCC *XL* 25MG TAB (TopROL *XL*) PO SCH (09:04)
[2022-12-17] MEDS: TRIHEXYPHENIDYL 2 MG TAB PO SCH ×2 (09:04→20:52)
[2022-12-17] MEDS: MULTIVITAMINS/MINERALS THERAP 1 TAB PO SCH (09:05)
[2022-12-17] MEDS: PARoxetine 20MG TABLET PO SCH (09:05)
[2022-12-17] MEDS: FERROUS GLUCONATE 324 MG TAB PO SCH (09:05)
[2022-12-17] MEDS: risperiDONE 3 MG TAB PO SCH (09:05)
[2022-12-17] MEDS ORDERED: LEVEMIR (INSULIN DETEMIR) 1 UNITS/0.01ML SC SCH (15:05)
[2022-12-17] MEDS: DOCUSATE SODIUM 100MG CAPSULE PO SCH (20:51)
[2022-12-17] MEDS: OLANZapine 10 MG TAB PO SCH (20:52)
[2022-12-17] MEDS: SIMVASTATIN 10 MG TAB PO SCH (20:52)
[2022-12-18 03:48] VITALS: BP 136/78
[2022-12-18 05:37] LABS: BASO % 0.3 % (0.0-1.0); EOS # 0.7 10^3/uL (0.0-0.5); EOS % 11.1 % (0.0-3.0); HEMATOCRIT 35.3 % (42.0-52.0); HEMOGLOBIN 11.8 g/dl (13.5-17.5); LYMPH # 1.7 10^3/uL (1.5-5.0); LYMPH % 26.4 % (24.0-44.0); MEAN CORPUSCULAR HEMOGLOBIN 32.8 pg (27.0-33.0); MEAN CORPUSCULAR HGB CONC 33.4 g/dl (32.0-36.5); MEAN CORPUSCULAR VOLUME 98.1 fl (80.0-96.0); MONO # 0.6 10^3/uL (0.0-0.8); MONO % 9.6 % (2.0-8.0); NEUTROPHILS # 3.3 10^3/uL (1.5-8.5); NEUTROPHILS % 52.1 % (36.0-66.0); PLATELET COUNT, AUTOMATED 169 10^3/uL (150-450); WHITE BLOOD COUNT 6.3 10^3/uL (4.0-10.0)
[2022-12-18 06:02] LABS: ALBUMIN 2.7 G/DL (3.2-5.2); ALKALINE PHOSPHATASE 162 U/L (46-116); ALT/SGPT 32 U/L (7.0-40); AST/SGOT 26 U/L (<34); BILIRUBIN,TOTAL 0.2 MG/DL (0.3-1.2); BLOOD UREA NITROGEN 19 MG/DL (9-23); CALCIUM LEVEL 8.5 MG/DL (8.3-10.6); CARBON DIOXIDE LEVEL 33 MMOL/L (20-31); CHLORIDE LEVEL 104 MMOL/L (98-107); CREATININE FOR GFR 0.74 MG/DL (0.70-1.30); GLOMERULAR FILTRATION RATE > 60.0 (>42); GLUCOSE, FASTING 109 MG/DL (74-106); MAGNESIUM LEVEL 1.9 MG/DL (1.8-2.4); POTASSIUM SERUM 3.6 MMOL/L (3.5-5.1); SODIUM LEVEL 142 MMOL/L (136-145); TOTAL PROTEIN 6.1 G/DL (5.7-8.2)
[2022-12-18 07:37] VITALS: BP 148/87
[2022-12-18] MEDS: INSULIN LISPRO (NovoLOG) PER UNIT SC SCH ×2 (08:19→12:50)
[2022-12-18] MEDS: risperiDONE 3 MG TAB PO SCH (08:20)
[2022-12-18] MEDS: PHENYTOIN 50MG CHEW TABLET PO SCH (08:20)
[2022-12-18] MEDS: METOPROLOL SUCC *XL* 25MG TAB (TopROL *XL*) PO SCH (08:20)
[2022-12-18] MEDS: PARoxetine 20MG TABLET PO SCH (08:20)
[2022-12-18] MEDS: ASPIRIN 81MG ENTERIC TABLET PO SCH (08:20)
[2022-12-18] MEDS: TRIHEXYPHENIDYL 2 MG TAB PO SCH (08:20)
[2022-12-18] MEDS: FERROUS GLUCONATE 324 MG TAB PO SCH (08:20)
[2022-12-18] MEDS: MULTIVITAMINS/MINERALS THERAP 1 TAB PO SCH (08:20)
== END 2022-12-18 13:48 | disposition home or self-care (01) | DRG 669 ==
LOC: M ED 09:59 → M ED INP 13:39 → ENRESERV 13:49 → M PCU 14:28
PROVIDERS: ADMIT Internal Medicine; ATTEND Family Medicine
PROC: 0TCB8ZZ Extirpation of Matter from Bladder, Via Natural or Artificial Opening Endoscopic (ICD-10-PCS; 2022-12-15)
PROC: 0TBB8ZX Excision of Bladder, Via Natural or Artificial Opening Endoscopic, Diagnostic (ICD-10-PCS; principal; 2022-12-15 16:30)
DX: C67.6 Malignant neoplasm of ureteric orifice (principal); E87.20 Acidosis, unspecified; I08.0 Rheumatic disorders of both mitral and aortic valves; E11.9 Type 2 diabetes mellitus without complications; I10 Essential (primary) hypertension; G40.909 Epilepsy, unspecified, not intractable, without status epilepticus; E78.5 Hyperlipidemia, unspecified; F17.210 Nicotine dependence, cigarettes, uncomplicated; F79 Unspecified intellectual disabilities; Z95.2 Presence of prosthetic heart valve; Z79.82 Long term (current) use of aspirin; Z79.4 Long term (current) use of insulin; Z79.899 Other long term (current) drug therapy; Z88.6 Allergy status to analgesic agent; Z88.8 Allergy status to other drugs, medicaments and biological substances

== ENCOUNTER → 2023-01-29 | Outpatient (CLI) | payer MEDICARE, MEDICAID ==
[~2023-01-29] MED LIST changes: +ACET325T43 PO; +ALUM45SU PO; +AMOX500C; +ECOT81TA5 PO; +FERR32TA PO; +IBUP200C25 PO; +METO1TAB32 PO; +MOME0.1O3 TOP; +TRAM50TA2; +VITA100054 PO; +artane PO
== END ==
LOC: M ONCR 12:52
PROVIDERS: ATTEND General Practice
DX: C67.8 Malignant neoplasm of overlapping sites of bladder (principal); F79 Unspecified intellectual disabilities; Z79.4 Long term (current) use of insulin; Z79.84 Long term (current) use of oral hypoglycemic drugs; Z79.899 Other long term (current) drug therapy; Z87.891 Personal history of nicotine dependence; Z88.8 Allergy status to other drugs, medicaments and biological substances

== ENCOUNTER 2023-02-05 10:07 | Outpatient (RCR) | payer MEDICARE, MEDICAID | END 2023-02-18 | LOC: M ONCR 10:07 | PROVIDERS: ATTEND General Practice | DX: C67.8 Malignant neoplasm of overlapping sites of bladder (principal) ==

== ENCOUNTER → 2023-03-02 | Outpatient (CLI) | payer MEDICARE, MEDICAID | LOC: M PLARAD 12:00 | PROVIDERS: ATTEND Internal Medicine Hematology & Oncology | DX: C67.8 Malignant neoplasm of overlapping sites of bladder (principal); Z53.8 Procedure and treatment not carried out for other reasons ==

== ENCOUNTER 2023-03-18 10:31 | Outpatient (RCR) | payer MEDICARE, MEDICAID | END 2023-03-20 | LOC: M ONCR 10:31 | PROVIDERS: ATTEND General Practice | DX: C67.8 Malignant neoplasm of overlapping sites of bladder (principal) ==

== ENCOUNTER → 2023-04-02 | Outpatient (CLI) | payer MEDICARE, MEDICAID ==
[2023-04-02 14:53] LABS: HEPATITIS B SURFACE ANTIBODY POSITIVE (POSITIVE)
[2023-04-02 15:05] LABS: HEPATITIS B SURFACE ANTIGEN NEGATIVE (NEGATIVE)
== END ==
LOC: M PLALAB 09:20
PROVIDERS: ATTEND Internal Medicine
DX: R76.8 Other specified abnormal immunological findings in serum (principal)

== ENCOUNTER → 2023-05-15 | Outpatient (CLI) | payer MEDICARE, MEDICAID ==
[2023-05-15 08:07] LABS: BASO % 0.7 % (0.0-1.0); EOS # 0.6 10^3/uL (0.0-0.5); HEMATOCRIT 34.5 % (42.0-52.0); HEMOGLOBIN 11.2 g/dl (13.5-17.5); LYMPH # 1.3 10^3/uL (1.5-5.0); LYMPH % 31.8 % (24.0-44.0); MEAN CORPUSCULAR HEMOGLOBIN 32.7 pg (27.0-33.0); MEAN CORPUSCULAR HGB CONC 32.5 g/dl (32.0-36.5); MEAN CORPUSCULAR VOLUME 100.9 fl (80.0-96.0); MONO # 0.4 10^3/uL (0.0-0.8); MONO % 10.2 % (2.0-8.0); NEUTROPHILS # 1.8 10^3/uL (1.5-8.5); NEUTROPHILS % 42.6 % (36.0-66.0); PLATELET COUNT, AUTOMATED 154 10^3/uL (150-450); RED BLOOD COUNT 3.42 10^6/uL (4.30-6.10); WHITE BLOOD COUNT 4.2 10^3/uL (4.0-10.0)
[2023-05-15 08:21] LABS: ERYTHROCYTE SEDIMENTATION RATE 43 mm/hr (0-20)
[2023-05-15 08:38] LABS: ALBUMIN 3.1 G/DL (3.2-5.2); ALKALINE PHOSPHATASE 174 U/L (46-116); ALT/SGPT 35 U/L (7.0-40); AST/SGOT 26 U/L (<34); BILIRUBIN,TOTAL 0.2 MG/DL (0.3-1.2); BLOOD UREA NITROGEN 19 MG/DL (9-23); CALCIUM LEVEL 8.9 MG/DL (8.3-10.6); CARBON DIOXIDE LEVEL 29 MMOL/L (20-31); CHLORIDE LEVEL 105 MMOL/L (98-107); CREATININE FOR GFR 1.01 MG/DL (0.70-1.30); GLOMERULAR FILTRATION RATE > 60.0 (>42); GLUCOSE, FASTING 129 MG/DL (74-106); POTASSIUM SERUM 4.9 MMOL/L (3.5-5.1); RHEUMATOID FACTOR QUANT 9.3 IU/ML (<14); SODIUM LEVEL 139 MMOL/L (136-145); TOTAL PROTEIN 7.2 G/DL (5.7-8.2)
[2023-05-15 08:40] LABS: PHENYTOIN (DILANTIN) 9.6 UG/ML (10.0-20.0)
[2023-05-15 08:41] LABS: FOLATE 4.3 NG/ML (>5.4); VITAMIN B12 LEVEL 364 PG/ML (211-911)
[2023-05-16 13:35] LABS: ANTINUCLEAR ANTIBODIES DIRECT Negative (Negative)
== END ==
LOC: M LAB 07:27
PROVIDERS: ATTEND Psychiatry & Neurology Neurology
DX: G40.89 Other seizures (principal)

== ENCOUNTER → 2023-06-06 | Outpatient (CLI) | payer MEDICARE, MEDICAID ==
[~2023-06-06] MED LIST changes: +DIAZ-654 PO; -VALI10TA PO
[2023-06-06 10:06] LABS: HEMATOCRIT 36.6 % (42.0-52.0); HEMOGLOBIN 12.1 g/dl (13.5-17.5); MEAN CORPUSCULAR HEMOGLOBIN 33.7 pg (27.0-33.0); MEAN CORPUSCULAR HGB CONC 33.1 g/dl (32.0-36.5); MEAN CORPUSCULAR VOLUME 101.9 fl (80.0-96.0); PLATELET COUNT, AUTOMATED 176 10^3/uL (150-450); RED BLOOD COUNT 3.59 10^6/uL (4.30-6.10); WHITE BLOOD COUNT 6.3 10^3/uL (4.0-10.0)
[2023-06-06 10:39] LABS: ALBUMIN 3.2 G/DL (3.2-5.2); ALKALINE PHOSPHATASE 187 U/L (46-116); ALT/SGPT 27 U/L (7.0-40); AST/SGOT 20 U/L (<34); BILIRUBIN,TOTAL 0.2 MG/DL (0.3-1.2); BLOOD UREA NITROGEN 31 MG/DL (9-23); CALCIUM LEVEL 9.3 MG/DL (8.3-10.6); CARBON DIOXIDE LEVEL 32 MMOL/L (20-31); CHLORIDE LEVEL 103 MMOL/L (98-107); CREATININE FOR GFR 1.06 MG/DL (0.70-1.30); GLOMERULAR FILTRATION RATE > 60.0 (>42); GLUCOSE, FASTING 134 MG/DL (74-106); POTASSIUM SERUM 4.9 MMOL/L (3.5-5.1); SODIUM LEVEL 142 MMOL/L (136-145); TOTAL PROTEIN 7.3 G/DL (5.7-8.2)
== END ==
LOC: M LAB 09:01
PROVIDERS: ATTEND Urology
DX: C67.9 Malignant neoplasm of bladder, unspecified (principal); Z79.899 Other long term (current) drug therapy

== ENCOUNTER → 2023-06-09 | Outpatient (CLI) | payer MEDICARE, MEDICAID ==
[~2023-06-09] MED LIST changes: +GASTROGRAFIN SOLUTION 30ML As Ordered ONE; +ISOVUE-370 76% 100ML VIAL As Ordered ONE
== END ==
LOC: M RAD 12:33
PROVIDERS: ATTEND General Practice
DX: C67.8 Malignant neoplasm of overlapping sites of bladder (principal)
CPT/HCPCS: 74177; Q9963; Q9967

== ENCOUNTER → 2023-06-12 | Outpatient (CLI) | payer MEDICARE, MEDICAID ==
[~2023-06-12] MED LIST changes: -GASTROGRAFIN SOLUTION 30ML As Ordered ONE; -ISOVUE-370 76% 100ML VIAL As Ordered ONE
== END ==
LOC: M WUC 12:54
PROVIDERS: ATTEND Urology
DX: C67.9 Malignant neoplasm of bladder, unspecified (principal)

== ENCOUNTER 2023-08-04 12:29 | Inpatient (IN) | payer MEDICARE, MEDICAID ==
[~2023-08-04] VITALS: Ht 162.6 cm; Wt 60.0 kg
[~2023-08-04 12:29] MED LIST changes: +INSU100I16 SC; +MACR100C43 PO; +OXYB5TAB11 PO; +PERCOCET PO; +PYRI1TAB5 PO
[2023-08-04 13:48] LABS: BASO % 0.2 % (0.0-1.0); EOS # 0.9 10^3/uL (0.0-0.5); EOS % 14.2 % (0.0-3.0); LYMPH # 1.4 10^3/uL (1.5-5.0); LYMPH % 22.3 % (24.0-44.0); MEAN CORPUSCULAR HEMOGLOBIN 33.6 pg (27.0-33.0); MEAN CORPUSCULAR HGB CONC 33.3 g/dl (32.0-36.5); MEAN CORPUSCULAR VOLUME 100.8 fl (80.0-96.0); MONO # 0.8 10^3/uL (0.0-0.8); MONO % 13.3 % (2.0-8.0); NEUTROPHILS # 3.1 10^3/uL (1.5-8.5); NEUTROPHILS % 49.4 % (36.0-66.0); PLATELET COUNT, AUTOMATED 134 10^3/uL (150-450); RED BLOOD COUNT 3.57 10^6/uL (4.30-6.10); WHITE BLOOD COUNT 6.3 10^3/uL (4.0-10.0)
[2023-08-04] MEDS ORDERED: IBUP-1114 PO (13:48)
[2023-08-04] MEDS ORDERED: FOLI1TAB11 PO (13:48)
[2023-08-04] MEDS ORDERED: DEBR6.5S4 AU (13:48)
[2023-08-04] MEDS ORDERED: ASPI81CH33 PO (13:48)
[2023-08-04] MEDS ORDERED: GUAI100L6 PO (13:48)
[2023-08-04] MEDS ORDERED: TRAM50TA2 PO (13:48)
[2023-08-04 14:11] LABS: CK-MB VALUE MASS < 1.0 NG/ML (<3.6)
[2023-08-04 14:12] LABS: PHENYTOIN (DILANTIN) 11.2 UG/ML (10.0-20.0)
[2023-08-04 14:14] LABS: ALBUMIN 3.1 G/DL (3.2-5.2); ALKALINE PHOSPHATASE 179 U/L (46-116); ALT/SGPT 19 U/L (7.0-40); AST/SGOT 19 U/L (<34); BILIRUBIN,DIRECT < 0.1 MG/DL (<0.4); BILIRUBIN,TOTAL 0.2 MG/DL (0.3-1.2); BLOOD UREA NITROGEN 25 MG/DL (9-23); CARBON DIOXIDE LEVEL 25 MMOL/L (20-31); CHLORIDE LEVEL 103 MMOL/L (98-107); CPK CREATINE PHOSPHOKINASE 33 U/L (46-171); CREATININE FOR GFR 0.72 MG/DL (0.70-1.30); GLOMERULAR FILTRATION RATE > 60.0 (>42); GLUCOSE, FASTING 134 MG/DL (74-106); MB/CK RELATIVE INDEX 3.03 (< OR =4); POTASSIUM SERUM 4.4 MMOL/L (3.5-5.1); SODIUM LEVEL 141 MMOL/L (136-145); THYROID STIMULATING HORMONE 3.027 uIU/ML (0.55-4.78); TOTAL PROTEIN 7.1 G/DL (5.7-8.2)
[2023-08-04 14:45] LABS: RSV AMPLIFICATION NEGATIVE (NEGATIVE)
[2023-08-04 15:45] LABS: LIPASE 32 U/L (12-53)
[2023-08-04] MEDS ORDERED: ISOVUE-370 76% 100ML VIAL As Ordered ONE (15:47)
[2023-08-04] MEDS ORDERED: MED REC IN PROGRESS XX SCH (18:00)
[2023-08-04] MEDS ORDERED: NS 1,000 ML IV ONE (18:25)
[2023-08-04 18:32] LABS: PROLACTIN 47.56 NG/ML (2.1-17.7)
[2023-08-04] MEDS ORDERED: PERCOCET 5MG/325MG TAB PO PRN (19:20)
[2023-08-04 19:43] LABS: HEMOGLOBIN A1c 6.4 % (4.0-6.0)
[2023-08-04] MEDS ORDERED: MIDAZOLAM INJ 2MG/2ML VIAL IV ONE (20:35)
[2023-08-04] MEDS ORDERED: MIDAZOLAM INJ 2MG/2ML VIAL As Ordered ONE (20:39)
[2023-08-04] MEDS ORDERED: AMOX500C PO (20:57)
[2023-08-04] MEDS ORDERED: VITMTA PO (20:57)
[2023-08-04] MEDS ORDERED: OXYB5TAB11 PO (21:25)
[2023-08-04] MEDS ORDERED: PHEN26CR PR (21:25)
[2023-08-04] MEDS ORDERED: DESI13CR2 TOP (21:25)
[2023-08-04] MEDS ORDERED: PHEN1TAB74 PO (21:25)
[2023-08-04] MEDS ORDERED: TRIPOIN9 TOP (21:25)
[2023-08-04] MEDS ORDERED: IBUP200T46 PO (21:25)
[2023-08-04] MEDS ORDERED: APAP325T4 PO (21:25)
[2023-08-04] MEDS ORDERED: HOME MED LIST COMPLETE! XX SCH (21:30)
[2023-08-04] MEDS: OLANZapine 10 MG TAB PO SCH (22:25)
[2023-08-04] MEDS: SIMVASTATIN 10 MG TAB PO SCH (22:25)
[2023-08-04] MEDS: FOLIC ACID 1MG TAB PO SCH (22:25)
[2023-08-04] MEDS: LEVEMIR (INSULIN DETEMIR) 1 UNITS/0.01ML SC SCH (22:27)
[2023-08-05] MEDS ORDERED: PHENYTOIN 100MG/2ML VIAL IV ONE ×2 (01:00→09:00)
[2023-08-05] MEDS ORDERED: PHENYTOIN 50MG CHEW TABLET PO SCH (09:00)
[2023-08-05] MEDS ORDERED: ASPIRIN 81MG CHEW TABLET PO SCH (09:00)
[2023-08-05] MEDS: PARoxetine 20MG TABLET PO SCH (10:22)
[2023-08-05] MEDS: METOPROLOL SUCC *XL* 25MG TAB (TopROL *XL*) PO SCH (10:24)
[2023-08-05] MEDS: TRIHEXYPHENIDYL 2 MG TAB PO SCH ×2 (11:09→23:12)
[2023-08-05] MEDS: MEMANTINE 5MG TABLET (NAMENDA) PO SCH ×2 (11:10→20:46)
[2023-08-05] MEDS: FERROUS GLUCONATE 324 MG TAB PO SCH (11:10)
[2023-08-05] MEDS: VITAMIN D 1,000 INTERNATIONAL UNITS TABLET PO SCH ×2 (11:12→18:20)
[2023-08-05 14:17] VITALS: BP 134/85; TEMP 98; O2SAT 93
[2023-08-05 16:25] VITALS: BP 129/81; TEMP 97.7; O2SAT 94
[2023-08-05 19:03] LABS: INR 0.98; PROTHROMBIN TIME 12.7 SECONDS (12.5-14.5)
[2023-08-05 20:10] LABS: PARTIAL THROMBOPLASTIN TIME 21.8 SECONDS (24.8-34.2)
[2023-08-05 20:20] VITALS: BP 129/81; TEMP 96.8; O2SAT 94
[2023-08-05] MEDS: LEVEMIR (INSULIN DETEMIR) 1 UNITS/0.01ML SC SCH (20:45)
[2023-08-05] MEDS: FOLIC ACID 1MG TAB PO SCH (20:46)
[2023-08-05] MEDS: SIMVASTATIN 10 MG TAB PO SCH (20:47)
[2023-08-05] MEDS: OLANZapine 10 MG TAB PO SCH (23:11)
[2023-08-05] MEDS: PHENYTOIN ER 100 MG CAP PO SCH (23:12)
[2023-08-06 06:46] LABS: INR 1.03; PROTHROMBIN TIME 13.2 SECONDS (12.5-14.5)
[2023-08-06 06:54] VITALS: BP 133/61; TEMP 97.5; O2SAT 95
[2023-08-06] MEDS: VITAMIN D 1,000 INTERNATIONAL UNITS TABLET PO SCH (08:05)
[2023-08-06] MEDS: FERROUS GLUCONATE 324 MG TAB PO SCH (08:05)
[2023-08-06] MEDS: PHENYTOIN ER 100 MG CAP PO SCH (08:05)
[2023-08-06] MEDS: MEMANTINE 5MG TABLET (NAMENDA) PO SCH (08:05)
[2023-08-06 08:06] VITALS: BP 138/72
[2023-08-06] MEDS: PARoxetine 20MG TABLET PO SCH (08:06)
[2023-08-06] MEDS: METOPROLOL SUCC *XL* 25MG TAB (TopROL *XL*) PO SCH (08:06)
[2023-08-06] MEDS ORDERED: PHEN200C PO (10:02)
[2023-08-06] MEDS: TRIHEXYPHENIDYL 2 MG TAB PO SCH (10:13)
[2023-08-06] MEDS ORDERED: PHENYTOIN ER 100 MG CAP PO SCH (21:00)
== END 2023-08-06 13:05 | disposition home or self-care (01) | DRG 100 ==
LOC: M ED 12:29 → M ED INP 18:02 → ENRESERV 08-05 14:28 → M MS5PR 08-05 16:05
PROVIDERS: ADMIT General Practice; ATTEND General Practice
DX: G40.909 Epilepsy, unspecified, not intractable, without status epilepticus (principal); G93.41 Metabolic encephalopathy; B19.10 Unspecified viral hepatitis B without hepatic coma; E11.9 Type 2 diabetes mellitus without complications; N28.1 Cyst of kidney, acquired; G30.9 Alzheimer's disease, unspecified; F02.80 Dementia in other diseases classified elsewhere, unspecified severity, without behavioral disturbance, psychotic disturbance, mood disturbance, and anxiety; I10 Essential (primary) hypertension; M48.061 Spinal stenosis, lumbar region without neurogenic claudication; F34.1 Dysthymic disorder; K57.90 Diverticulosis of intestine, part unspecified, without perforation or abscess without bleeding; G51.0 Bell's palsy; D53.9 Nutritional anemia, unspecified; N32.3 Diverticulum of bladder; F17.210 Nicotine dependence, cigarettes, uncomplicated; I35.1 Nonrheumatic aortic (valve) insufficiency; R31.0 Gross hematuria; M54.16 Radiculopathy, lumbar region; I34.0 Nonrheumatic mitral (valve) insufficiency; R91.1 Solitary pulmonary nodule; Z79.82 Long term (current) use of aspirin; Z79.4 Long term (current) use of insulin; Z79.899 Other long term (current) drug therapy; Z88.8 Allergy status to other drugs, medicaments and biological substances; Z95.2 Presence of prosthetic heart valve; Z87.891 Personal history of nicotine dependence; Z85.51 Personal history of malignant neoplasm of bladder; Z92.3 Personal history of irradiation

== ENCOUNTER → 2023-09-11 | Outpatient (CLI) | payer MEDICARE, MEDICAID ==
[~2023-09-11] MED LIST changes: +AMOX500C PO; +APAP325T4 PO; +ASPI81CH33 PO; +DESI13CR2 TOP; +FOLI1TAB11 PO; +GASTROGRAFIN SOLUTION 30ML As Ordered ONE; +GUAI100L6 PO; +IBUP-1114 PO; +IBUP200T46 PO; +ISOVUE-370 76% 100ML VIAL As Ordered ONE; +PHEN1TAB74 PO; +PHEN200C PO; +PHEN26CR PR; +TRAM50TA2 PO; +TRIPOIN9 TOP
== END ==
LOC: M RAD 10:58
PROVIDERS: ATTEND General Practice
DX: C67.8 Malignant neoplasm of overlapping sites of bladder (principal); I51.7 Cardiomegaly; J81.1 Chronic pulmonary edema; I50.9 Heart failure, unspecified
CPT/HCPCS: 71260; 74177; Q9963; Q9967

== ENCOUNTER → 2023-09-18 | Outpatient (CLI) | payer MEDICARE, MEDICAID ==
[~2023-09-18] MED LIST changes: -GASTROGRAFIN SOLUTION 30ML As Ordered ONE; -ISOVUE-370 76% 100ML VIAL As Ordered ONE
== END ==
LOC: M ONCR 10:34
PROVIDERS: ATTEND General Practice
DX: C67.8 Malignant neoplasm of overlapping sites of bladder (principal); F79 Unspecified intellectual disabilities; Z71.2 Person consulting for explanation of examination or test findings; Z79.4 Long term (current) use of insulin; Z79.82 Long term (current) use of aspirin; Z79.84 Long term (current) use of oral hypoglycemic drugs; Z79.891 Long term (current) use of opiate analgesic; Z79.899 Other long term (current) drug therapy; Z87.891 Personal history of nicotine dependence; Z88.8 Allergy status to other drugs, medicaments and biological substances; Z91.02 Food additives allergy status; Z92.3 Personal history of irradiation

== ENCOUNTER → 2023-10-08 | Outpatient (CLI) | payer MEDICARE, MEDICAID ==
[2023-10-08 09:52] LABS: BASO % 0.2 % (0.0-1.0); EOS # 0.5 10^3/uL (0.0-0.5); EOS % 11.1 % (0.0-3.0); HEMATOCRIT 33.9 % (42.0-52.0); HEMOGLOBIN 11.1 g/dl (13.5-17.5); LYMPH # 0.8 10^3/uL (1.5-5.0); LYMPH % 19.6 % (24.0-44.0); MEAN CORPUSCULAR HEMOGLOBIN 32.8 pg (27.0-33.0); MEAN CORPUSCULAR HGB CONC 32.7 g/dl (32.0-36.5); MEAN CORPUSCULAR VOLUME 100.3 fl (80.0-96.0); MONO # 0.4 10^3/uL (0.0-0.8); MONO % 9.4 % (2.0-8.0); NEUTROPHILS # 2.4 10^3/uL (1.5-8.5); PLATELET COUNT, AUTOMATED 184 10^3/uL (150-450); RED BLOOD COUNT 3.38 10^6/uL (4.30-6.10); WHITE BLOOD COUNT 4.1 10^3/uL (4.0-10.0)
[2023-10-08 10:15] LABS: ALBUMIN 2.8 G/DL (3.2-5.2); ALKALINE PHOSPHATASE 190 U/L (46-116); ALT/SGPT 21 U/L (7.0-40); AST/SGOT 14 U/L (<34); BILIRUBIN,TOTAL 0.2 MG/DL (0.3-1.2); BLOOD UREA NITROGEN 24 MG/DL (9-23); CALCIUM LEVEL 9.1 MG/DL (8.3-10.6); CARBON DIOXIDE LEVEL 29 MMOL/L (20-31); CHLORIDE LEVEL 105 MMOL/L (98-107); CHOLESTEROL LEVEL 164 MG/DL (<200); CHOLESTEROL RISK RATIO 2.55 (<5); CREATININE FOR GFR 0.82 MG/DL (0.70-1.30); GLOMERULAR FILTRATION RATE > 60.0 (>42); GLUCOSE, FASTING 141 MG/DL (74-106); HDL CHOLESTEROL 64.3 MG/DL (>40); LDL CHOLESTEROL 77.7 MG/DL (<100); NON-HDL-C 99.7 MG/DL; POTASSIUM SERUM 4.6 MMOL/L (3.5-5.1); SODIUM LEVEL 141 MMOL/L (136-145); TOTAL PROTEIN 6.9 G/DL (5.7-8.2); TRIGLYCERIDES LEVEL 110 MG/DL (<150)
[2023-10-08 10:17] LABS: PROLACTIN 87.44 NG/ML (2.1-17.7)
[2023-10-08 10:26] LABS: HEMOGLOBIN A1c 6.9 % (4.0-6.0)
== END ==
LOC: M WUC 08:07
PROVIDERS: ATTEND Physician Assistant
DX: Z79.899 Other long term (current) drug therapy (principal); E78.5 Hyperlipidemia, unspecified; E11.9 Type 2 diabetes mellitus without complications

== ENCOUNTER → 2023-10-08 | Outpatient (CLI) | payer MEDICARE, MEDICAID ==
[2023-10-08 10:27] LABS: HEMOGLOBIN A1c 6.9 % (4.0-6.0)
[2023-10-08 10:28] LABS: ALBUMIN 2.8 G/DL (3.2-5.2); ALKALINE PHOSPHATASE 191 U/L (46-116); ALT/SGPT 20 U/L (7.0-40); AST/SGOT 14 U/L (<34); BILIRUBIN,TOTAL 0.2 MG/DL (0.3-1.2); BLOOD UREA NITROGEN 24 MG/DL (9-23); CARBON DIOXIDE LEVEL 29 MMOL/L (20-31); CHLORIDE LEVEL 106 MMOL/L (98-107); CHOLESTEROL LEVEL 166 MG/DL (<200); CHOLESTEROL RISK RATIO 2.57 (<5); CREATININE FOR GFR 0.82 MG/DL (0.70-1.30); GLOMERULAR FILTRATION RATE > 60.0 (>42); GLUCOSE, FASTING 138 MG/DL (74-106); HDL CHOLESTEROL 64.4 MG/DL (>40); LDL CHOLESTEROL 79.4 MG/DL (<100); NON-HDL-C 101.6 MG/DL; POTASSIUM SERUM 4.5 MMOL/L (3.5-5.1); SODIUM LEVEL 141 MMOL/L (136-145); TOTAL PROTEIN 6.9 G/DL (5.7-8.2); TRIGLYCERIDES LEVEL 111 MG/DL (<150)
== END ==
LOC: M WUC 08:09
PROVIDERS: ATTEND Internal Medicine
DX: E78.5 Hyperlipidemia, unspecified (principal); E11.9 Type 2 diabetes mellitus without complications

== ENCOUNTER → 2023-10-20 | Outpatient (REF) | payer MEDICARE, MEDICAID ==
[2023-10-20 18:11] LABS: APPEARANCE, URINE MANUAL TURBID (CLEAR)
[2023-10-20 18:12] LABS: COLOR, URINE MANUAL YELLOW (YELLOW)
[2023-10-20 18:13] LABS: BILIRUBIN, URINE MANUAL NEGATIVE (NEGATIVE); BLOOD URINE MANUAL POSITIVE (NEGATIVE); GLUCOSE, URINE (UA) MANUAL NEGATIVE (NEGATIVE); KETONE, URINE MANUAL NEGATIVE (NEGATIVE); LEUKOCYTE ESTERASE, URINE MAN POSITIVE (NEGATIVE); NITRITE, URINE MANUAL NEGATIVE (NEGATIVE); UROBILINOGEN, URINE MANUAL NORMAL (NORMAL)
[2023-10-20 18:14] LABS: PROTEIN, URINE MANUAL 2+ mg/dL (NEGATIVE)
[2023-10-20 18:28] LABS: WBC, URINE TNTC /hpf (0-3)
[2023-10-20 18:29] LABS: RBC, URINE 40-50 /hpf (0-3)
[2023-10-20 18:30] LABS: BACTERIA, URINE NONE SEEN; HYALINE CAST, URINE NONE SEEN /lpf (0-1); SQUAMOUS EPITHELIAL CELL URINE NONE SEEN /hpf (SMALL AMT)
[2023-10-20 18:31] LABS: AMORPHOUS SEDIMENT, URINE LARGE AMOUNT (NEGATIVE); MUCUS, URINE MOD AMOUNT (NEGATIVE); OTHER SEDIMENT, URINE UNKN. FIBERS
== END ==
LOC: M SMT 16:52
PROVIDERS: ATTEND Urology
DX: C67.9 Malignant neoplasm of bladder, unspecified (principal); Z79.899 Other long term (current) drug therapy

== ENCOUNTER 2023-11-16 13:17 | Inpatient (IN) | payer MEDICARE, MEDICAID ==
[~2023-11-16] VITALS: Ht 162.6 cm; Wt 138.4 kg
[~2023-11-16 13:17] MED LIST changes: -OXYB5TAB11 PO; +OXYB5TAB14 PO
[2023-11-16 14:20] LABS: BASO % 0.3 % (0.0-1.0); EOS # 0.3 10^3/uL (0.0-0.5); EOS % 5.3 % (0.0-3.0); HEMATOCRIT 32.8 % (42.0-52.0); HEMOGLOBIN 10.6 g/dl (13.5-17.5); LYMPH # 1.1 10^3/uL (1.5-5.0); LYMPH % 18.2 % (24.0-44.0); MEAN CORPUSCULAR HEMOGLOBIN 32.3 pg (27.0-33.0); MEAN CORPUSCULAR HGB CONC 32.3 g/dl (32.0-36.5); MONO # 0.9 10^3/uL (0.0-0.8); MONO % 15.3 % (2.0-8.0); NEUTROPHILS # 3.7 10^3/uL (1.5-8.5); NEUTROPHILS % 60.6 % (36.0-66.0); PLATELET COUNT, AUTOMATED 163 10^3/uL (150-450); RED BLOOD COUNT 3.28 10^6/uL (4.30-6.10)
[2023-11-16 14:36] LABS: INR 1.05; PROTHROMBIN TIME 13.4 SECONDS (12.5-14.5)
[2023-11-16 14:45] LABS: CK-MB VALUE MASS < 1.0 NG/ML (<3.6)
[2023-11-16 14:50] LABS: ALBUMIN 2.3 G/DL (3.2-5.2); ALKALINE PHOSPHATASE 159 U/L (46-116); ALT/SGPT 25 U/L (7.0-40); AST/SGOT 39 U/L (<34); BILIRUBIN,DIRECT < 0.1 MG/DL (<0.4); BILIRUBIN,TOTAL 0.2 MG/DL (0.3-1.2); BLOOD UREA NITROGEN 26 MG/DL (9-23); CALCIUM LEVEL 8.5 MG/DL (8.3-10.6); CARBON DIOXIDE LEVEL 27 MMOL/L (20-31); CHLORIDE LEVEL 104 MMOL/L (98-107); CREATININE FOR GFR 0.87 MG/DL (0.70-1.30); GLOMERULAR FILTRATION RATE > 60.0 (>42); GLUCOSE, FASTING 114 MG/DL (74-106); POTASSIUM SERUM 4.4 MMOL/L (3.5-5.1); SODIUM LEVEL 136 MMOL/L (136-145); TOTAL PROTEIN 6.5 G/DL (5.7-8.2)
[2023-11-16 14:52] LABS: FREE T4 0.82 NG/DL (0.89-1.76); THYROID STIMULATING HORMONE 2.357 uIU/ML (0.55-4.78)
[2023-11-16 14:58] LABS: CPK CREATINE PHOSPHOKINASE 23 U/L (46-171); MB/CK RELATIVE INDEX 4.34 (< OR =4)
[2023-11-16 15:14] LABS: ERYTHROCYTE SEDIMENTATION RATE > 130 mm/hr (0-20)
[2023-11-16 15:20] LABS: PROCALCITONIN 0.18 ng/ml
[2023-11-16] MEDS: methylPREDNISolone 125MG 2ML VIAL IV ONE (16:18)
[2023-11-16] MEDS: cefTRIAXone SOD 1 GM in D5W MINI-BAG PLUS 50 ML IV ONE (16:41)
[2023-11-16] MEDS: NS 1,000 ML IV SCH (20:15)
[2023-11-17] VITALS (8 sets, daily range): BP systolic 97–134; BP diastolic 57–81; TEMP 98.5–99.1; O2SAT 93–95
[2023-11-17] MEDS ORDERED: ONDANSETRON 4MG 2ML VIAL IV PRN (01:30)
[2023-11-17] MEDS: NS 1,000 ML IV SCH (01:30)
[2023-11-17 07:53] LABS: BASO % 0.4 % (0.0-1.0); EOS # 0.4 10^3/uL (0.0-0.5); EOS % 7.4 % (0.0-3.0); HEMOGLOBIN 10.9 g/dl (13.5-17.5); LYMPH % 20.5 % (24.0-44.0); MEAN CORPUSCULAR HEMOGLOBIN 32.7 pg (27.0-33.0); MEAN CORPUSCULAR VOLUME 99.1 fl (80.0-96.0); MONO # 0.6 10^3/uL (0.0-0.8); MONO % 11.4 % (2.0-8.0); NEUTROPHILS # 2.9 10^3/uL (1.5-8.5); NEUTROPHILS % 59.9 % (36.0-66.0); PLATELET COUNT, AUTOMATED 164 10^3/uL (150-450); RED BLOOD COUNT 3.33 10^6/uL (4.30-6.10); WHITE BLOOD COUNT 4.8 10^3/uL (4.0-10.0)
[2023-11-17 08:20] LABS: BLOOD UREA NITROGEN 24 MG/DL (9-23); CALCIUM LEVEL 8.4 MG/DL (8.3-10.6); CARBON DIOXIDE LEVEL 28 MMOL/L (20-31); CHLORIDE LEVEL 105 MMOL/L (98-107); CREATININE FOR GFR 0.84 MG/DL (0.70-1.30); GLOMERULAR FILTRATION RATE > 60.0 (>42); GLUCOSE, FASTING 160 MG/DL (74-106); POTASSIUM SERUM 4.5 MMOL/L (3.5-5.1); SODIUM LEVEL 140 MMOL/L (136-145)
[2023-11-17] MEDS: cefTRIAXone SOD 1 GM in D5W MINI-BAG PLUS 50 ML IV SCH (08:39)
[2023-11-17] MEDS ORDERED: ALUM320S3 PO (09:43)
[2023-11-17] MEDS ORDERED: MULT-40 PO (09:43)
[2023-11-17] MEDS ORDERED: OXYC1TAB23 PO (09:43)
[2023-11-17] MEDS ORDERED: ASPI81TA26 PO (09:43)
[2023-11-17] MEDS ORDERED: PHEN100C PO (09:43)
[2023-11-17] MEDS ORDERED: VITA100066 PO (10:54)
[2023-11-17] MEDS ORDERED: HOME MED LIST COMPLETE! XX SCH (10:55)
[2023-11-17 12:32] LABS: PROCALCITONIN 0.17 ng/ml
[2023-11-17] MEDS ORDERED: GLUCAGON INJ 1MG VIAL SC PRN (13:00)
[2023-11-17] MEDS ORDERED: DEXTROSE 50% 50ML SYRINGE IV PRN (13:00)
[2023-11-17] MEDS ORDERED: GLUCOSE 4GM CHEW TABLET PO PRN (13:00)
[2023-11-17] MEDS: oxyBUTYnin 5 MG TAB PO PRN (13:23)
[2023-11-17] MEDS: risperiDONE 3 MG TAB PO SCH (13:24)
[2023-11-17] MEDS: TRIHEXYPHENIDYL 2 MG TAB PO SCH (13:24)
[2023-11-17] MEDS: METOPROLOL SUCC *XL* 25MG TAB (TopROL *XL*) PO SCH (13:24)
[2023-11-17] MEDS: PARoxetine 20MG TABLET PO SCH (13:24)
[2023-11-17] MEDS: PHENYTOIN ER 100 MG CAP PO SCH (13:25)
[2023-11-17] MEDS: INSULIN LISPRO (NovoLOG) PER UNIT SC SCH ×2 (13:31→22:12)
[2023-11-17] MEDS ORDERED: oxyCODONE 5MG TAB PO PRN (16:10)
[2023-11-17] MEDS: KETOROLAC 30 MG/ML 1ML VIAL IV PRN (16:20)
[2023-11-17] MEDS: LR 1,000 ML IV SCH (17:34)
[2023-11-17] MEDS: OLANZapine 10 MG TAB PO SCH (20:18)
[2023-11-17] MEDS: FOLIC ACID 1MG TAB PO SCH (20:18)
[2023-11-17] MEDS: SIMVASTATIN 10 MG TAB PO SCH (20:18)
[2023-11-17] MEDS: VITAMIN D 1,000 INTERNATIONAL UNITS TABLET PO SCH (20:18)
[2023-11-17] MEDS: LEVEMIR (INSULIN DETEMIR) 1 UNITS/0.01ML SC SCH (22:12)
[2023-11-18 02:00] VITALS: BP 126/73; TEMP 98.1; O2SAT 94
[2023-11-18 04:34] VITALS: BP 126/72; TEMP 98.1; O2SAT 96
[2023-11-18 05:53] LABS: BASO % 0.2 % (0.0-1.0); EOS # 0.7 10^3/uL (0.0-0.5); EOS % 15.8 % (0.0-3.0); HEMOGLOBIN 9.9 g/dl (13.5-17.5); LYMPH % 21.9 % (24.0-44.0); MEAN CORPUSCULAR HEMOGLOBIN 32.7 pg (27.0-33.0); MONO # 0.6 10^3/uL (0.0-0.8); MONO % 12.3 % (2.0-8.0); NEUTROPHILS # 2.2 10^3/uL (1.5-8.5); NEUTROPHILS % 49.1 % (36.0-66.0); PLATELET COUNT, AUTOMATED 151 10^3/uL (150-450); RED BLOOD COUNT 3.03 10^6/uL (4.30-6.10); WHITE BLOOD COUNT 4.5 10^3/uL (4.0-10.0)
[2023-11-18 06:26] LABS: BLOOD UREA NITROGEN 26 MG/DL (9-23); CALCIUM LEVEL 8.3 MG/DL (8.3-10.6); CARBON DIOXIDE LEVEL 30 MMOL/L (20-31); CHLORIDE LEVEL 106 MMOL/L (98-107); CREATININE FOR GFR 1.04 MG/DL (0.70-1.30); GLOMERULAR FILTRATION RATE > 60.0 (>42); GLUCOSE, FASTING 212 MG/DL (74-106); SODIUM LEVEL 139 MMOL/L (136-145)
[2023-11-18] MEDS: FERROUS GLUCONATE 324 MG TAB PO SCH (08:12)
[2023-11-18] MEDS: MULTIVITAMINS/MINERALS THERAP 1 TAB PO SCH (08:12)
[2023-11-18] MEDS: ASPIRIN 81MG ENTERIC TABLET PO SCH (08:13)
[2023-11-18 10:00] VITALS: BP 127/72; TEMP 97.5; O2SAT 96
[2023-11-18] MEDS: MEMANTINE 28 MG PO SCH (10:25)
[2023-11-18] MEDS: ACETAMINOPHEN TAB 650MG DOSE (2X325MG) PO PRN (10:44)
[2023-11-18 19:54] VITALS: BP 134/86; TEMP 98.4; O2SAT 95
[2023-11-19 04:55] VITALS: BP 138/68; TEMP 98.1; O2SAT 95
[2023-11-19 06:23] LABS: BASO % 0.2 % (0.0-1.0); EOS % 17.7 % (0.0-3.0); HEMOGLOBIN 10.6 g/dl (13.5-17.5); LYMPH # 0.9 10^3/uL (1.5-5.0); LYMPH % 17.2 % (24.0-44.0); MEAN CORPUSCULAR HEMOGLOBIN 33.5 pg (27.0-33.0); MEAN CORPUSCULAR HGB CONC 34.2 g/dl (32.0-36.5); MEAN CORPUSCULAR VOLUME 98.1 fl (80.0-96.0); MONO # 0.6 10^3/uL (0.0-0.8); MONO % 11.3 % (2.0-8.0); NEUTROPHILS # 2.9 10^3/uL (1.5-8.5); PLATELET COUNT, AUTOMATED 166 10^3/uL (150-450); RED BLOOD COUNT 3.16 10^6/uL (4.30-6.10); WHITE BLOOD COUNT 5.4 10^3/uL (4.0-10.0)
[2023-11-19 06:45] LABS: ERYTHROCYTE SEDIMENTATION RATE 107 mm/hr (0-20)
[2023-11-19 06:51] LABS: BLOOD UREA NITROGEN 19 MG/DL (9-23); CALCIUM LEVEL 8.6 MG/DL (8.3-10.6); CARBON DIOXIDE LEVEL 29 MMOL/L (20-31); CHLORIDE LEVEL 104 MMOL/L (98-107); CREATININE FOR GFR 0.82 MG/DL (0.70-1.30); GLOMERULAR FILTRATION RATE > 60.0 (>42); GLUCOSE, FASTING 207 MG/DL (74-106); POTASSIUM SERUM 4.4 MMOL/L (3.5-5.1); SODIUM LEVEL 140 MMOL/L (136-145)
[2023-11-19] MEDS: CEFDINIR 300 MG CAP (OMNICEF) PO SCH (08:45)
[2023-11-19 08:46] VITALS: BP 121/78
[2023-11-19 10:00] VITALS: BP 121/77; TEMP 98.4; O2SAT 98
[2023-11-19] MEDS ORDERED: CEFD300CAP PO (10:48)
== END 2023-11-19 13:24 | disposition home or self-care (01) | DRG 689 ==
LOC: M ED 13:17 → M ED INP 11-17 01:30 → ENRESERV 11-17 14:09 → M MSPAV 11-17 15:18
PROVIDERS: ADMIT Internal Medicine; ATTEND General Practice
DX: N13.6 Pyonephrosis (principal); G93.41 Metabolic encephalopathy; Z68.43 Body mass index [BMI] 50.0-59.9, adult; I11.0 Hypertensive heart disease with heart failure; I50.9 Heart failure, unspecified; G51.0 Bell's palsy; F70 Mild intellectual disabilities; N39.0 Urinary tract infection, site not specified; R31.9 Hematuria, unspecified; F39 Unspecified mood [affective] disorder; E55.9 Vitamin D deficiency, unspecified; D50.9 Iron deficiency anemia, unspecified; E78.5 Hyperlipidemia, unspecified; N32.81 Overactive bladder; G40.909 Epilepsy, unspecified, not intractable, without status epilepticus; C67.3 Malignant neoplasm of anterior wall of bladder; E66.9 Obesity, unspecified; Z92.3 Personal history of irradiation; Z95.2 Presence of prosthetic heart valve; Z87.891 Personal history of nicotine dependence; Z79.82 Long term (current) use of aspirin; Z79.4 Long term (current) use of insulin; Z79.899 Other long term (current) drug therapy; Z88.8 Allergy status to other drugs, medicaments and biological substances; Z91.048 Other nonmedicinal substance allergy status

== ENCOUNTER 2023-11-30 07:45 | Emergency (ER) | payer MEDICARE, MEDICAID ==
[~2023-11-30] VITALS: Ht 165.1 cm; Wt 62.9 kg
[~2023-11-30 07:45] MED LIST changes: +ALUM320S3 PO; +ASPI81TA26 PO; +CEFD300CAP PO; +MULT-40 PO; +OXYC1TAB23 PO; +PHEN100C PO; -RISP-10; +RISP3TAB77; +VITA100066 PO
[2023-11-30] MEDS: LIDOCAINE 2% 5ML JELLY UROJET TOP ONE (09:30)
[2023-11-30] MEDS: ACETAMINOPHEN 325 MG TAB PO ONE (13:23)
[2023-11-30 15:05] VITALS: BP 140/73; TEMP 98; O2SAT 93
== END 2023-11-30 15:27 | disposition home or self-care (01) ==
LOC: EDBD 07:45 → M ED 07:45
DX: R31.0 Gross hematuria (principal); R33.9 Retention of urine, unspecified; E11.9 Type 2 diabetes mellitus without complications; I10 Essential (primary) hypertension; E78.5 Hyperlipidemia, unspecified; G40.909 Epilepsy, unspecified, not intractable, without status epilepticus; Z88.8 Allergy status to other drugs, medicaments and biological substances; Z91.048 Other nonmedicinal substance allergy status; Z79.1 Long term (current) use of non-steroidal anti-inflammatories (NSAID); Z79.899 Other long term (current) drug therapy; Z79.2 Long term (current) use of antibiotics; Z79.84 Long term (current) use of oral hypoglycemic drugs; Z79.4 Long term (current) use of insulin; Z79.810 Long term (current) use of selective estrogen receptor modulators (SERMs)

== ENCOUNTER → 2024-01-08 | Outpatient (CLI) | payer MEDICARE, MEDICAID ==
[2024-01-08 16:58] LABS: HEMATOCRIT 32.7 % (42.0-52.0); HEMOGLOBIN 10.4 g/dl (13.5-17.5); MEAN CORPUSCULAR HEMOGLOBIN 31.8 pg (27.0-33.0); MEAN CORPUSCULAR HGB CONC 31.8 g/dl (32.0-36.5); PLATELET COUNT, AUTOMATED 178 10^3/uL (150-450); RED BLOOD COUNT 3.27 10^6/uL (4.30-6.10); WHITE BLOOD COUNT 5.8 10^3/uL (4.0-10.0)
[2024-01-08 17:14] LABS: ALKALINE PHOSPHATASE 195 U/L (46-116); ALT/SGPT 17 U/L (7.0-40); AST/SGOT 16 U/L (<34); BILIRUBIN,TOTAL < 0.2 MG/DL (0.3-1.2); BLOOD UREA NITROGEN 25 MG/DL (9-23); CALCIUM LEVEL 9.6 MG/DL (8.3-10.6); CARBON DIOXIDE LEVEL 25 MMOL/L (20-31); CHLORIDE LEVEL 97 MMOL/L (98-107); CHOLESTEROL LEVEL 160 MG/DL (<200); CHOLESTEROL RISK RATIO 2.33 (<5); CREATININE FOR GFR 0.85 MG/DL (0.70-1.30); GLOMERULAR FILTRATION RATE > 60.0 (>42); GLUCOSE, FASTING 185 MG/DL (74-106); HDL CHOLESTEROL 68.4 MG/DL (>40); LDL CHOLESTEROL 57.6 MG/DL (<100); NON-HDL-C 91.6 MG/DL; POTASSIUM SERUM 4.8 MMOL/L (3.5-5.1); SODIUM LEVEL 135 MMOL/L (136-145); TOTAL PROTEIN 7.2 G/DL (5.7-8.2); TRIGLYCERIDES LEVEL 170 MG/DL (<150)
[2024-01-08 17:27] LABS: HEMOGLOBIN A1c 6.1 % (4.0-6.0)
[2024-01-08 18:56] LABS: BASOPHILS 1 % (0-1); EOSINOPHILS 14 % (0-3); LYMPHOCYTES 26 % (16-44); MONOCYTES 9 % (0-5); NEUTROPHILS 49 % (28-66); PLATELET ESTIMATE NORMAL (NORMAL)
== END ==
LOC: M WUC 14:05
PROVIDERS: ATTEND Internal Medicine
DX: E78.5 Hyperlipidemia, unspecified (principal); E11.9 Type 2 diabetes mellitus without complications

== ENCOUNTER → 2024-02-12 | Outpatient (CLI) | payer MEDICARE, MEDICAID | LOC: M WUC 10:20 | PROVIDERS: ATTEND Psychiatry & Neurology Neurology | DX: R56.9 Unspecified convulsions (principal); Z51.81 Encounter for therapeutic drug level monitoring; Z79.899 Other long term (current) drug therapy ==

== ENCOUNTER → 2024-02-12 | Outpatient (CLI) | payer MEDICARE, MEDICAID ==
[2024-02-12 13:32] LABS: HEMATOCRIT 33.1 % (42.0-52.0); HEMOGLOBIN 10.4 g/dl (13.5-17.5); MEAN CORPUSCULAR HEMOGLOBIN 30.1 pg (27.0-33.0); MEAN CORPUSCULAR HGB CONC 31.4 g/dl (32.0-36.5); MEAN CORPUSCULAR VOLUME 95.9 fl (80.0-96.0); PLATELET COUNT, AUTOMATED 172 10^3/uL (150-450); RED BLOOD COUNT 3.45 10^6/uL (4.30-6.10); WHITE BLOOD COUNT 4.5 10^3/uL (4.0-10.0)
[2024-02-12 14:08] LABS: ALBUMIN 2.9 G/DL (3.2-5.2); ALKALINE PHOSPHATASE 194 U/L (46-116); ALT/SGPT 17 U/L (7.0-40); AST/SGOT 13 U/L (<34); BILIRUBIN,TOTAL < 0.2 MG/DL (0.3-1.2); BLOOD UREA NITROGEN 30 MG/DL (9-23); CALCIUM LEVEL 9.3 MG/DL (8.3-10.6); CARBON DIOXIDE LEVEL 22 MMOL/L (20-31); CHLORIDE LEVEL 100 MMOL/L (98-107); CREATININE FOR GFR 0.78 MG/DL (0.70-1.30); GLOMERULAR FILTRATION RATE > 60.0 (>42); GLUCOSE, FASTING 290 MG/DL (74-106); POTASSIUM SERUM 4.5 MMOL/L (3.5-5.1); SODIUM LEVEL 136 MMOL/L (136-145)
[2024-02-12 15:35] LABS: ATYPICAL LYMPH 4 % (0-5); BASOPHILS 1 % (0-1); EOSINOPHILS 23 % (0-3); LYMPHOCYTES 14 % (16-44); MONOCYTES 9 % (0-5); NEUTROPHILS 46 % (28-66)
[2024-02-12 16:01] LABS: PLATELET ESTIMATE NORMAL (NORMAL)
== END ==
LOC: M WUC 10:22
PROVIDERS: ATTEND Internal Medicine
DX: N39.0 Urinary tract infection, site not specified (principal); R56.9 Unspecified convulsions; Z51.81 Encounter for therapeutic drug level monitoring; Z79.899 Other long term (current) drug therapy

== ENCOUNTER → 2024-03-09 | Outpatient (CLI) | payer MEDICARE, MEDICAID ==
[2024-03-09 11:54] LABS: BLOOD UREA NITROGEN 30 MG/DL (9-23); CALCIUM LEVEL 9.5 MG/DL (8.3-10.6); CARBON DIOXIDE LEVEL 30 MMOL/L (20-31); CHLORIDE LEVEL 103 MMOL/L (98-107); CREATININE FOR GFR 0.83 MG/DL (0.70-1.30); GLOMERULAR FILTRATION RATE > 60.0 (>42); GLUCOSE, FASTING 174 MG/DL (74-106); POTASSIUM SERUM 4.8 MMOL/L (3.5-5.1); SODIUM LEVEL 139 MMOL/L (136-145)
== END ==
LOC: M WUC 09:13
PROVIDERS: ATTEND Urology
DX: C67.9 Malignant neoplasm of bladder, unspecified (principal)

== ENCOUNTER → 2024-03-15 | Outpatient (REF) | payer MEDICARE, MEDICAID | LOC: M SMT 10:32 | PROVIDERS: ATTEND Urology | DX: C67.9 Malignant neoplasm of bladder, unspecified (principal) ==

== ENCOUNTER → 2024-03-16 | Outpatient (CLI) | payer MEDICARE, MEDICAID ==
[~2024-03-16] MED LIST changes: +GASTROGRAFIN SOLUTION 30ML As Ordered ONE; +ISOVUE-370 76% 100ML VIAL As Ordered ONE
== END ==
LOC: M RAD 11:36
PROVIDERS: ATTEND General Practice
DX: C67.9 Malignant neoplasm of bladder, unspecified (principal)
CPT/HCPCS: 71260; 74177; Q9963; Q9967

== ENCOUNTER → 2024-03-23 | Outpatient (CLI) | payer MEDICARE, MEDICAID ==
[~2024-03-23] MED LIST changes: -GASTROGRAFIN SOLUTION 30ML As Ordered ONE; -ISOVUE-370 76% 100ML VIAL As Ordered ONE
== END ==
LOC: M ONCR 10:21
PROVIDERS: ATTEND General Practice
DX: C67.9 Malignant neoplasm of bladder, unspecified (principal); F79 Unspecified intellectual disabilities; Z87.891 Personal history of nicotine dependence; Z92.3 Personal history of irradiation; Z91.09 Other allergy status, other than to drugs and biological substances; Z88.8 Allergy status to other drugs, medicaments and biological substances; Z79.82 Long term (current) use of aspirin; Z79.899 Other long term (current) drug therapy; Z79.4 Long term (current) use of insulin

== ENCOUNTER → 2024-05-05 | Outpatient (REF) | payer MEDICARE, MEDICAID ==
[2024-05-05 13:35] LABS: APPEARANCE, URINE CLOUDY (CLEAR); BACTERIA, URINE AUTO 1+ (NEGATIVE); BILIRUBIN, URINE AUTO NEGATIVE (NEGATIVE); BLOOD, URINE BLOOD 2+ (NEGATIVE); COLOR, URINE YELLOW (YELLOW); GLUCOSE, URINE (UA) AUTO NEGATIVE (NEGATIVE); KETONE, URINE AUTO NEGATIVE (NEGATIVE); LEUKOCYTE ESTERASE, URINE AUTO 3+ (NEGATIVE); MUCUS, URINE SMALL (NEGATIVE); NITRITE, URINE AUTO NEGATIVE (NEGATIVE); PROTEIN, URINE AUTO 2+ mg/dL (NEGATIVE); RBC, URINE AUTO 35 /HPF (0-3); SPECIFIC GRAVITY URINE AUTO 1.011 (1.002-1.035); SQUAMOUS EPITHELIAL CELL UR AU 0 /HPF (0-6); UROBILINOGEN, URINE AUTO 0.2 mg/dL (0.0-2.0); WBC, URINE AUTO TNTC /HPF (0-3)
== END ==
LOC: M SMT 13:16
PROVIDERS: ATTEND Urology
DX: R39.9 Unspecified symptoms and signs involving the genitourinary system (principal)

== ENCOUNTER → 2024-09-23 | Outpatient (REF) | payer MEDICARE, MEDICAID ==
[2024-09-23 11:00] LABS: HEMATOCRIT 32.8 % (42.0-52.0); HEMOGLOBIN 10.6 g/dl (13.5-17.5); MEAN CORPUSCULAR HEMOGLOBIN 30.8 pg (27.0-33.0); MEAN CORPUSCULAR HGB CONC 32.3 g/dl (32.0-36.5); MEAN CORPUSCULAR VOLUME 95.3 fl (80.0-96.0); PLATELET COUNT, AUTOMATED 194 10^3/uL (150-450); RED BLOOD COUNT 3.44 10^6/uL (4.30-6.10); WHITE BLOOD COUNT 4.2 10^3/uL (4.0-10.0)
[2024-09-23 12:21] LABS: ATYPICAL LYMPH 11 % (0-5); BASOPHILS 1 % (0-1); EOSINOPHILS 22 % (0-3); LYMPHOCYTES 15 % (16-44); METAMYELOCYTES 2 % (0-0); MONOCYTES 8 % (0-5); NEUTROPHILS 34 % (28-66)
[2024-09-23 12:22] LABS: ANISOCYTOSIS 1+
[2024-09-23 12:23] LABS: PLATELET ESTIMATE NORMAL (NORMAL)
== END ==
LOC: M LABWUC 09:54
PROVIDERS: ATTEND Psychiatry & Neurology Neurology
DX: G40.89 Other seizures (principal); C67.9 Malignant neoplasm of bladder, unspecified

== ENCOUNTER → 2024-09-23 | Outpatient (REF) | payer MEDICARE, MEDICAID ==
[2024-09-23 11:23] LABS: ALBUMIN 3.1 G/DL (3.2-5.2); ALKALINE PHOSPHATASE 217 U/L (40-129); ALT/SGPT 22 U/L (7.0-40); AST/SGOT 24 U/L (<34); BILIRUBIN,TOTAL < 0.2 MG/DL (0.3-1.2); BLOOD UREA NITROGEN 46 MG/DL (9-23); CALCIUM LEVEL 9.9 MG/DL (8.3-10.6); CARBON DIOXIDE LEVEL 28 MMOL/L (20-31); CHLORIDE LEVEL 100 MMOL/L (98-107); CREATININE FOR GFR 0.95 MG/DL (0.70-1.30); GLOMERULAR FILTRATION RATE > 60.0 (>42); GLUCOSE, FASTING 127 MG/DL (74-106); POTASSIUM SERUM 5.1 MMOL/L (3.5-5.1); SODIUM LEVEL 140 MMOL/L (136-145); TOTAL PROTEIN 8.3 G/DL (5.7-8.2)
== END ==
LOC: M LABWUC 09:48
PROVIDERS: ATTEND Urology
DX: C67.9 Malignant neoplasm of bladder, unspecified (principal)

== ENCOUNTER → 2024-09-28 | Outpatient (CLI) | payer MEDICARE, MEDICAID | LOC: M ONCR 10:04 | PROVIDERS: ATTEND General Practice | DX: C67.8 Malignant neoplasm of overlapping sites of bladder (principal); Z87.891 Personal history of nicotine dependence; F79 Unspecified intellectual disabilities; Z92.3 Personal history of irradiation; Z79.899 Other long term (current) drug therapy; Z91.02 Food additives allergy status; Z88.8 Allergy status to other drugs, medicaments and biological substances; Z79.891 Long term (current) use of opiate analgesic; Z79.82 Long term (current) use of aspirin; Z79.84 Long term (current) use of oral hypoglycemic drugs ==

== ENCOUNTER → 2024-10-19 | Outpatient (CLI) | payer MEDICARE, MEDICAID | LOC: M RAD 09:19 | PROVIDERS: ATTEND General Practice | DX: C67.8 Malignant neoplasm of overlapping sites of bladder (principal); N13.30 Unspecified hydronephrosis ==

== ENCOUNTER → 2025-03-29 | Outpatient (CLI) | payer MEDICARE, MEDICAID ==
[~2025-03-29] MED LIST changes: +BISA10SU PR; +D31000CA5 PO; +DEBR6.5S4 OU; +MEMA28CA12 PO; +MIRA33506 PO; +OLAN1TAB20 PO; -VITA100054 PO
== END ==
LOC: M ONCR 10:47
PROVIDERS: ATTEND General Practice
DX: C67.9 Malignant neoplasm of bladder, unspecified (principal); F79 Unspecified intellectual disabilities; Z79.4 Long term (current) use of insulin; Z79.82 Long term (current) use of aspirin; Z79.84 Long term (current) use of oral hypoglycemic drugs; Z79.899 Other long term (current) drug therapy; Z87.891 Personal history of nicotine dependence; Z88.6 Allergy status to analgesic agent; Z88.8 Allergy status to other drugs, medicaments and biological substances; Z91.09 Other allergy status, other than to drugs and biological substances; Z92.3 Personal history of irradiation

== ENCOUNTER 2025-04-21 12:14 | Inpatient (IN) | payer MEDICARE, MEDICAID ==
[~2025-04-21] VITALS: Ht 172.7 cm; Wt 59.4 kg
[2025-04-21 13:23] LABS: BASO # 0.0 10^3/uL (0.0-0.2); BASO % 0.2 % (0.0-1.0); EOS # 1.0 10^3/uL (0.0-0.5); EOS % 10.1 % (0.0-3.0); LYMPH # 1.7 10^3/uL (1.5-5.0); LYMPH % 17.4 % (24.0-44.0); MONO # 0.8 10^3/uL (0.0-0.8); MONO % 8.4 % (2.0-8.0); NEUTROPHILS # 6.1 10^3/uL (1.5-8.5); NEUTROPHILS % 63.1 % (36.0-66.0); PLATELET COUNT, AUTOMATED 257 10^3/uL (150-450)
[2025-04-21] MEDS ORDERED: NS (Normal Saline) 0.9% 1,000 ML IV ONE (13:25)
[2025-04-21 13:39] LABS: APPEARANCE, URINE MANUAL CLOUDY (CLEAR); COLOR, URINE MANUAL YELLOW (YELLOW); PH,URINE MAN 6.0 UNITS (5.0 - 7.0); PROTEIN, URINE MANUAL 2+ mg/dL (NEGATIVE); SPECIFIC GRAVITY,URINE MANUAL 1.015 (1.002-1.035)
[2025-04-21 13:40] LABS: BILIRUBIN, URINE MANUAL NEGATIVE (NEGATIVE); BLOOD URINE MANUAL POSITIVE (NEGATIVE); GLUCOSE, URINE (UA) MANUAL NEGATIVE (NEGATIVE); KETONE, URINE MANUAL NEGATIVE (NEGATIVE); LEUKOCYTE ESTERASE, URINE MAN POSITIVE (NEGATIVE); NITRITE, URINE MANUAL POSITIVE (NEGATIVE); UROBILINOGEN, URINE MANUAL NORMAL (NORMAL)
[2025-04-21 13:42] LABS: WBC, URINE 30-40 /hpf (0-3)
[2025-04-21 13:43] LABS: BACTERIA, URINE LARGE AMOUNT; HYALINE CAST, URINE NONE SEEN /lpf (0-1); SQUAMOUS EPITHELIAL CELL URINE NONE SEEN /hpf (SMALL AMT)
[2025-04-21] MEDS: NS 500 ML IV ONE (13:44)
[2025-04-21 13:53] LABS: ALT/SGPT 28 U/L (7.0-40); AST/SGOT 24 U/L (<34); CALCIUM LEVEL 9.1 MG/DL (8.3-10.6); CARBON DIOXIDE LEVEL 21 MMOL/L (20-31); CHLORIDE LEVEL 100 MMOL/L (98-107); CREATININE FOR GFR 0.88 MG/DL (0.70-1.30); GLOMERULAR FILTRATION RATE > 90.0 (>42); POTASSIUM SERUM 4.7 MMOL/L (3.5-5.1); SODIUM LEVEL 142 MMOL/L (136-145)
[2025-04-21 14:06] LABS: C REACTIVE PROTEIN QUANTITATIV 15.07 MG/DL (<1.0)
[2025-04-21] MEDS ORDERED: METOPROLOL 5 MG/5 ML VIAL As Ordered ONE (14:26)
[2025-04-21] MEDS: METOPROLOL 5 MG/5 ML VIAL IV STA (14:27)
[2025-04-21] MEDS: NS 0.9% IV ONE (14:32)
[2025-04-21] MEDS: [UNRECOGNIZED DRUG - OTHER] IV ONE (14:32)
[2025-04-21] MEDS ORDERED: NYST1POW3 TOP (14:32)
[2025-04-21] MEDS ORDERED: TAMS-18 PO (14:32)
[2025-04-21] MEDS ORDERED: FINA5TAB2 PO (14:32)
[2025-04-21] MEDS: CEFEPIME HCL 2 GM in DEXTROSE 5% (D5W) ADV/MINI-BAG 50 ML IV ONE (14:33)
[2025-04-21] MEDS ORDERED: HOME MED LIST COMPLETE! XX SCH (14:35)
[2025-04-21] MEDS ORDERED: ISOVUE-370 76% 100 ML VIAL As Ordered ONE (14:41)
[2025-04-21] MEDS: DIGOXIN INJ 0.5 MG/2 ML AMP IV ONE (17:09)
[2025-04-21] MEDS ORDERED: GLUCAGON INJ 1 MG VIAL SC PRN (20:15)
[2025-04-21] MEDS ORDERED: GLUCOSE 4 GM CHEW PO PRN (20:15)
[2025-04-21] MEDS ORDERED: IBUPROFEN 200 MG TAB PO PRN (20:15)
[2025-04-21] MEDS ORDERED: guaiFENesin SYRUP 200 MG/10 ML UDC PO PRN (20:15)
[2025-04-21 20:27] LABS: MAGNESIUM LEVEL 1.9 MG/DL (1.8-2.4)
[2025-04-21] MEDS: INSULIN LISPRO (NovoLOG) PER UNIT SC SCH (21:00)
[2025-04-21] MEDS: DOCUSATE SODIUM 100 MG CAPSULE PO SCH (21:47)
[2025-04-21] MEDS: METOPROLOL TART 12.5 MG PER 1/2 TAB PO SCH (21:47)
[2025-04-21] MEDS: OLANZapine 10 MG TAB PO SCH (21:47)
[2025-04-21] MEDS: FOLIC ACID 1 MG TAB PO SCH (21:48)
[2025-04-21] MEDS: ACETAMINOPHEN *IV* 1,000 MG in IV 1 EA IV ONE (21:48)
[2025-04-21] MEDS: LanTUS (INSULIN GLARGINE INJ) 1 UNITS/0.01 ML SC SCH (21:48)
[2025-04-21] MEDS: SIMVASTATIN 10 MG TAB PO SCH (21:49)
[2025-04-21] MEDS: TRIHEXYPHENIDYL 2 MG TAB PO SCH (22:04)
[2025-04-21] MEDS: PHENYTOIN ER 100 MG CAP PO SCH (22:05)
[2025-04-21] MEDS ORDERED: FUROSEMIDE 20 MG/2 ML VIAL IV ONE (22:50)
[2025-04-21] MEDS ORDERED: ACETAMINOPHEN 325 MG TAB PO PRN (23:00)
[2025-04-21] MEDS: FUROSEMIDE 20 MG/2 ML VIAL IV ONE (23:33)
[2025-04-22] VITALS (34 sets, daily range): BP systolic 107–142; BP diastolic 55–80; TEMP 96.3–97.9; O2SAT 94–100
[2025-04-22] MEDS: CEFEPIME HCL 2 GM in DEXTROSE 5% (D5W) ADV/MINI-BAG 50 ML IV SCH (03:50)
[2025-04-22 05:32] LABS: PLATELET COUNT, AUTOMATED 210 10^3/uL (150-450)
[2025-04-22 06:07] LABS: ALT/SGPT 68 U/L (7.0-40); AST/SGOT 70 U/L (<34); CALCIUM LEVEL 8.5 MG/DL (8.3-10.6); CARBON DIOXIDE LEVEL 28 MMOL/L (20-31); CHLORIDE LEVEL 104 MMOL/L (98-107); CREATININE FOR GFR 0.88 MG/DL (0.70-1.30); GLOMERULAR FILTRATION RATE > 90.0 (>42); MAGNESIUM LEVEL 1.9 MG/DL (1.8-2.4); POTASSIUM SERUM 4.0 MMOL/L (3.5-5.1); SODIUM LEVEL 143 MMOL/L (136-145)
[2025-04-22] MEDS: INSULIN LISPRO (NovoLOG) PER UNIT SC SCH (07:30)
[2025-04-22] MEDS: DEXTROSE 50% 50 ML SYRINGE IV PRN (08:02)
[2025-04-22] MEDS: ENOXAPARIN 40 MG/0.4 ML SYRINGE (J1650 PER 10MG) SC SCH (09:10)
[2025-04-22] MEDS: FINASTERIDE 5 MG TAB PO SCH (09:11)
[2025-04-22] MEDS: TAMSULOSIN 0.4 MG CAP PO SCH (09:11)
[2025-04-22] MEDS: ASPIRIN 81 MG ENTERIC TABLET PO SCH (09:11)
[2025-04-22] MEDS: PARoxetine 20MG TABLET PO SCH (09:11)
[2025-04-22] MEDS: FERROUS GLUCONATE 324 MG TAB PO SCH (09:12)
[2025-04-22] MEDS: NYSTATIN 100,000 UNITS/GM TOPICAL PWD 15 GM TOP SCH (09:14)
[2025-04-22 14:36] LABS: APPEARANCE, URINE HAZY (CLEAR); BACTERIA, URINE AUTO NEGATIVE (NEGATIVE); BILIRUBIN, URINE AUTO NEGATIVE (NEGATIVE); BLOOD, URINE BLOOD NEGATIVE (NEGATIVE); GLUCOSE, URINE (UA) AUTO NEGATIVE (NEGATIVE); KETONE, URINE AUTO NEGATIVE (NEGATIVE); LEUKOCYTE ESTERASE, URINE AUTO 3+ (NEGATIVE); MUCUS, URINE SMALL (NEGATIVE); NITRITE, URINE AUTO NEGATIVE (NEGATIVE); PROTEIN, URINE AUTO 2+ mg/dL (NEGATIVE); RBC, URINE AUTO 8 /HPF (0-3); SPECIFIC GRAVITY URINE AUTO 1.018 (1.002-1.035); SQUAMOUS EPITHELIAL CELL UR AU 0 /HPF (0-6); UROBILINOGEN, URINE AUTO 0.2 mg/dL (0.0-2.0); WBC, URINE AUTO TNTC /HPF (0-3)
[2025-04-22] MEDS: FUROSEMIDE 20 MG/2 ML VIAL IV ONE (15:33)
[2025-04-22] MEDS: traMADol 50 MG TAB PO PRN (20:41)
[2025-04-22] MEDS: LanTUS (INSULIN GLARGINE INJ) 1 UNITS/0.01 ML SC SCH (20:49)
[2025-04-23] VITALS (32 sets, daily range): BP systolic 102–126; BP diastolic 59–82; TEMP 96.8–97.4; O2SAT 85–100
[2025-04-23 05:37] LABS: BASO # 0.0 10^3/uL (0.0-0.2); BASO % 0.5 % (0.0-1.0); EOS # 1.0 10^3/uL (0.0-0.5); EOS % 16.8 % (0.0-3.0); LYMPH # 0.7 10^3/uL (1.5-5.0); LYMPH % 11.5 % (24.0-44.0); MONO # 0.6 10^3/uL (0.0-0.8); MONO % 10.7 % (2.0-8.0); NEUTROPHILS # 3.5 10^3/uL (1.5-8.5); NEUTROPHILS % 60.2 % (36.0-66.0); PLATELET COUNT, AUTOMATED 228 10^3/uL (150-450)
[2025-04-23 05:58] LABS: ALT/SGPT 66 U/L (7.0-40); AST/SGOT 53 U/L (<34); CALCIUM LEVEL 8.5 MG/DL (8.3-10.6); CARBON DIOXIDE LEVEL 28 MMOL/L (20-31); CHLORIDE LEVEL 104 MMOL/L (98-107); CREATININE FOR GFR 0.78 MG/DL (0.70-1.30); GLOMERULAR FILTRATION RATE > 90.0 (>42); POTASSIUM SERUM 3.8 MMOL/L (3.5-5.1); SODIUM LEVEL 144 MMOL/L (136-145)
[2025-04-23] MEDS: METOPROLOL 5 MG/5 ML VIAL IV SCH (14:21)
[2025-04-23] MEDS: DIGOXIN INJ 0.5 MG/2 ML AMP IV ONE (18:31)
[2025-04-23] MEDS: METOPROLOL TART 25 MG TABLET PO SCH (18:32)
[2025-04-24] VITALS (29 sets, daily range): BP systolic 100–145; BP diastolic 54–88; TEMP 96.8–98.3; O2SAT 93–100
[2025-04-24 05:59] LABS: BASO # 0.0 10^3/uL (0.0-0.2); BASO % 0.5 % (0.0-1.0); EOS # 1.1 10^3/uL (0.0-0.5); EOS % 18.1 % (0.0-3.0); LYMPH # 0.9 10^3/uL (1.5-5.0); LYMPH % 14.7 % (24.0-44.0); MONO # 0.7 10^3/uL (0.0-0.8); MONO % 11.0 % (2.0-8.0); NEUTROPHILS # 3.2 10^3/uL (1.5-8.5); NEUTROPHILS % 54.9 % (36.0-66.0); PLATELET COUNT, AUTOMATED 251 10^3/uL (150-450)
[2025-04-24 06:24] LABS: CALCIUM LEVEL 8.8 MG/DL (8.3-10.6); CARBON DIOXIDE LEVEL 29 MMOL/L (20-31); CHLORIDE LEVEL 103 MMOL/L (98-107); CREATININE FOR GFR 0.86 MG/DL (0.70-1.30); GLOMERULAR FILTRATION RATE > 90.0 (>42); POTASSIUM SERUM 4.1 MMOL/L (3.5-5.1); SODIUM LEVEL 143 MMOL/L (136-145)
[2025-04-24] MEDS: DIGOXIN INJ 0.5 MG/2 ML AMP IV ONE (12:37)
[2025-04-25] VITALS (22 sets, daily range): BP systolic 91–154; BP diastolic 58–95; TEMP 96.7–97.5; O2SAT 92–100
[2025-04-25 06:17] LABS: BASO # 0.0 10^3/uL (0.0-0.2); BASO % 0.5 % (0.0-1.0); EOS # 1.0 10^3/uL (0.0-0.5); EOS % 16.4 % (0.0-3.0); LYMPH # 1.2 10^3/uL (1.5-5.0); LYMPH % 19.2 % (24.0-44.0); MONO # 0.7 10^3/uL (0.0-0.8); MONO % 10.7 % (2.0-8.0); NEUTROPHILS # 3.2 10^3/uL (1.5-8.5); NEUTROPHILS % 52.1 % (36.0-66.0); PLATELET COUNT, AUTOMATED 258 10^3/uL (150-450)
[2025-04-25 06:30] LABS: ALT/SGPT 44 U/L (7.0-40); AST/SGOT 30 U/L (<34); CALCIUM LEVEL 8.7 MG/DL (8.3-10.6); CARBON DIOXIDE LEVEL 28 MMOL/L (20-31); CHLORIDE LEVEL 103 MMOL/L (98-107); CREATININE FOR GFR 0.79 MG/DL (0.70-1.30); GLOMERULAR FILTRATION RATE > 90.0 (>42); POTASSIUM SERUM 4.7 MMOL/L (3.5-5.1); SODIUM LEVEL 141 MMOL/L (136-145)
[2025-04-25] MEDS: METOPROLOL 5 MG/5 ML VIAL IV STA ×2 (08:39→13:36)
[2025-04-25] MEDS: DIGOXIN 0.125 MG TAB PO SCH (08:43)
[2025-04-25] MEDS: LanTUS (INSULIN GLARGINE INJ) 1 UNITS/0.01 ML SC SCH (08:46)
[2025-04-25] MEDS: MULTIVITAMINS/MINERALS THERAP 1 TAB PO SCH (09:00)
[2025-04-25] MEDS: VITAMIN D 1,000 INTERNATIONAL UNITS TABLET PO SCH (13:06)
[2025-04-25] MEDS: FUROSEMIDE 40 MG TAB PO SCH (13:07)
[2025-04-25] MEDS: MEMANTINE 5 MG TABLET PO SCH (20:04)
[2025-04-26] VITALS (7 sets, daily range): BP systolic 131–150; BP diastolic 65–78; TEMP 97.5–98.5; O2SAT 93–99
[2025-04-26 05:44] LABS: BASO # 0.0 10^3/uL (0.0-0.2); BASO % 0.4 % (0.0-1.0); EOS # 1.0 10^3/uL (0.0-0.5); EOS % 17.9 % (0.0-3.0); LYMPH # 1.1 10^3/uL (1.5-5.0); LYMPH % 19.9 % (24.0-44.0); MONO # 0.6 10^3/uL (0.0-0.8); MONO % 10.7 % (2.0-8.0); NEUTROPHILS # 2.7 10^3/uL (1.5-8.5); NEUTROPHILS % 48.9 % (36.0-66.0); PLATELET COUNT, AUTOMATED 241 10^3/uL (150-450)
[2025-04-26 06:15] LABS: CALCIUM LEVEL 8.9 MG/DL (8.3-10.6); CARBON DIOXIDE LEVEL 30.0 MMOL/L (20-31); CHLORIDE LEVEL 102.0 MMOL/L (98-107); CREATININE FOR GFR 0.95 MG/DL (0.70-1.30); GLOMERULAR FILTRATION RATE 84.5 (>42); MAGNESIUM LEVEL 1.9 MG/DL (1.8-2.4); POTASSIUM SERUM 4.3 MMOL/L (3.5-5.1); SODIUM LEVEL 140.0 MMOL/L (136-145)
[2025-04-26] MEDS ORDERED: FURO20TA2 PO (09:39)
[2025-04-26] MEDS ORDERED: METO50TA7 PO (09:39)
[2025-04-26] MEDS ORDERED: DIGO0.123 PO (09:39)
[2025-04-26] MEDS ORDERED: LEVO75TAB PO (09:49)
[2025-04-26] MEDS ORDERED: ELIQ2.5T PO (12:16)
== END 2025-04-26 13:50 | disposition home or self-care (01) | DRG 698 ==
LOC: M ED 12:14 → M ED INP 20:12 → M PCU 04-22 01:20
PROVIDERS: ADMIT Internal Medicine; ATTEND Internal Medicine
DX: T83.511A Infection and inflammatory reaction due to indwelling urethral catheter, initial encounter (principal); A41.9 Sepsis, unspecified organism; I50.33 Acute on chronic diastolic (congestive) heart failure; E87.20 Acidosis, unspecified; I48.92 Unspecified atrial flutter; I47.10 Supraventricular tachycardia, unspecified; N39.0 Urinary tract infection, site not specified; Y84.6 Urinary catheterization as the cause of abnormal reaction of the patient, or of later complication, without mention of misadventure at the time of the procedure; F03.90 Unspecified dementia, unspecified severity, without behavioral disturbance, psychotic disturbance, mood disturbance, and anxiety; F79 Unspecified intellectual disabilities; G40.909 Epilepsy, unspecified, not intractable, without status epilepticus; I08.0 Rheumatic disorders of both mitral and aortic valves; F34.1 Dysthymic disorder; B18.2 Chronic viral hepatitis C; I27.20 Pulmonary hypertension, unspecified; R26.89 Other abnormalities of gait and mobility; K57.30 Diverticulosis of large intestine without perforation or abscess without bleeding; I25.10 Atherosclerotic heart disease of native coronary artery without angina pectoris; N32.3 Diverticulum of bladder; Z95.2 Presence of prosthetic heart valve; Z85.51 Personal history of malignant neoplasm of bladder; Z87.891 Personal history of nicotine dependence; Z79.82 Long term (current) use of aspirin; Z79.4 Long term (current) use of insulin; Z79.899 Other long term (current) drug therapy; Z88.6 Allergy status to analgesic agent; Z88.8 Allergy status to other drugs, medicaments and biological substances; Z91.048 Other nonmedicinal substance allergy status; Z99.3 Dependence on wheelchair

== ENCOUNTER 2025-05-02 08:31 | Inpatient (IN) | payer MEDICARE, MEDICAID ==
[~2025-05-02] VITALS: Ht 160 cm; Wt 62.0 kg
[~2025-05-02 08:31] MED LIST changes: +DIGO0.123 PO; +ELIQ2.5T PO; +FINA5TAB2 PO; +FURO20TA2 PO; +LEVO75TAB PO; +METO50TA7 PO; +NYST1POW3 TOP; +TAMS-18 PO
[2025-05-02] MEDS: NS (Normal Saline) 0.9% 1,000 ML IV SCH ×2 (08:53→18:35)
[2025-05-02 09:03] LABS: VENOUS BASE EXCESS 3.0 (-2.0-2.0); VENOUS HCO3 29.4 MMOL/L (23.0-27.0); VENOUS O2 SATURATION 69.0 % (60.0-80.0); VENOUS PARTIAL PRESSURE CO2 54.2 mmHg (38.0-50.0); VENOUS PARTIAL PRESSURE O2 39.7 mmHg (30.0-50.0); VENOUS PH 7.352 UNITS (7.330-7.430); VENOUS STANDARD HCO3 26.6 MMOL/L; VENOUS TOTAL CO2 31.0 MMOL/L (24.0-28.0)
[2025-05-02 09:17] LABS: KETONE, URINE AUTO RFX NEGATIVE (NEGATIVE); LEUKOCYTE ESTERASE UR AUTO RFX 3+ (NEGATIVE); MUCUS, URINE RFX SMALL (NEGATIVE); NITRITE, URINE AUTO RFX NEGATIVE (NEGATIVE); RBC, URINE AUTO RFX 104 /HPF (0-3); SQUAM EPITHELIAL CELL UR AURFX 0 /HPF (0-6); WBC, URINE AUTO RFX 170 /HPF (0-3)
[2025-05-02 09:21] LABS: BASO # 0.0 10^3/uL (0.0-0.2); BASO % 0.3 % (0.0-1.0); EOS # 0.1 10^3/uL (0.0-0.5); EOS % 0.8 % (0.0-3.0); LYMPH # 1.2 10^3/uL (1.5-5.0); LYMPH % 19.6 % (24.0-44.0); MONO # 0.8 10^3/uL (0.0-0.8); MONO % 12.7 % (2.0-8.0); NEUTROPHILS # 4.0 10^3/uL (1.5-8.5); NEUTROPHILS % 65.6 % (36.0-66.0); PLATELET COUNT, AUTOMATED 180 10^3/uL (150-450)
[2025-05-02 09:42] LABS: ALT/SGPT 30 U/L (7.0-40); AST/SGOT 31 U/L (<34); CALCIUM LEVEL 9.1 MG/DL (8.3-10.6); CARBON DIOXIDE LEVEL 30 MMOL/L (20-31); CHLORIDE LEVEL 102 MMOL/L (98-107); CREATININE FOR GFR 1.13 MG/DL (0.70-1.30); GLOMERULAR FILTRATION RATE 68.6 (>42); POTASSIUM SERUM 4.2 MMOL/L (3.5-5.1); SODIUM LEVEL 144 MMOL/L (136-145)
[2025-05-02 09:43] LABS: DIGOXIN LEVEL 1.4 NG/ML (0.8-2.0)
[2025-05-02 09:49] LABS: OSMOLALITY SERUM 313 MOSM/KG (280-301)
[2025-05-02] MEDS: CEFEPIME HCL 2 GM in DEXTROSE 5% (D5W) ADV/MINI-BAG 50 ML IV ONE (10:14)
[2025-05-02] MEDS: [UNRECOGNIZED DRUG - OTHER] IV ONE (10:15)
[2025-05-02] MEDS: NS 0.9% IV ONE (10:15)
[2025-05-02] MEDS ORDERED: DIGO0.123 PO (11:31)
[2025-05-02] MEDS ORDERED: ELIQ2.5T PO (11:33)
[2025-05-02] MEDS ORDERED: LOPR1TAB6 PO (11:41)
[2025-05-02] MEDS: LIDOCAINE 2% 5 ML JELLY UROJET TOP ONE (11:50)
[2025-05-02] MEDS ORDERED: MIRA3350 PO (11:58)
[2025-05-02] MEDS ORDERED: HOME MED LIST COMPLETE! XX SCH (12:05)
[2025-05-02] MEDS ORDERED: traMADol 50 MG TAB PO PRN (12:10)
[2025-05-02] MEDS ORDERED: ACETAMINOPHEN 325 MG TAB PO PRN (12:10)
[2025-05-02] MEDS ORDERED: MIRALAX *UNIT DOSE* 17 GM PACKET PO PRN (12:10)
[2025-05-02] MEDS ORDERED: guaiFENesin SYRUP 200 MG/10 ML UDC PO PRN (12:10)
[2025-05-02] MEDS ORDERED: GLUCOSE 4 GM CHEW PO PRN (16:40)
[2025-05-02] MEDS ORDERED: GLUCAGON INJ 1 MG VIAL SC PRN (16:40)
[2025-05-02] MEDS ORDERED: DEXTROSE 50% 50 ML SYRINGE IV PRN (16:40)
[2025-05-02] MEDS ORDERED: cefTRIAXone SOD 1 GM in DEXTROSE 5% (D5W) ADV/MINI-BAG 50 ML IV SCH (17:55)
[2025-05-02] MEDS: CEFEPIME HCL 1 GM in DEXTROSE 5% (D5W) ADV/MINI-BAG 50 ML IV SCH (22:14)
[2025-05-02] MEDS: METOPROLOL TART 50 MG TAB PO SCH (22:15)
[2025-05-02] MEDS: FOLIC ACID 1 MG TAB PO SCH (22:17)
[2025-05-02] MEDS: APIXABAN 2.5 MG TAB PO SCH (22:17)
[2025-05-02] MEDS: OLANZapine 10 MG TAB PO SCH (22:17)
[2025-05-02] MEDS: DOCUSATE SODIUM 100 MG CAPSULE PO SCH (22:17)
[2025-05-02] MEDS: SIMVASTATIN 10 MG TAB PO SCH (22:17)
[2025-05-02] MEDS: TRIHEXYPHENIDYL 2 MG TAB PO SCH (22:53)
[2025-05-02] MEDS: NYSTATIN 100,000 UNITS/GM TOPICAL PWD 15 GM TOP SCH (22:53)
[2025-05-02] MEDS: PHENYTOIN ER 100 MG CAP PO SCH (22:53)
[2025-05-03] MEDS ORDERED: ISOVUE-370 76% 100 ML VIAL As Ordered ONE (07:17)
[2025-05-03] MEDS: ASPIRIN 81 MG ENTERIC TABLET PO SCH (08:32)
[2025-05-03] MEDS: PARoxetine 20MG TABLET PO SCH (08:34)
[2025-05-03] MEDS: FINASTERIDE 5 MG TAB PO SCH (08:34)
[2025-05-03] MEDS: DIGOXIN 0.125 MG TAB PO SCH (08:34)
[2025-05-03] MEDS: CARBAMIDE PEROXIDE 6.5% OTIC SOLN 15 ML AU SCH (08:34)
[2025-05-03] MEDS: TAMSULOSIN 0.4 MG CAP PO SCH (08:34)
[2025-05-03] MEDS: FERROUS GLUCONATE 324 MG TAB PO SCH (08:35)
[2025-05-03 09:12] LABS: PLATELET COUNT, AUTOMATED 193 10^3/uL (150-450)
[2025-05-03 09:19] LABS: DIGOXIN LEVEL 1.1 NG/ML (0.8-2.0)
[2025-05-03 09:20] LABS: FREE T4 0.93 NG/DL (0.89-1.76)
[2025-05-03 09:36] LABS: ALT/SGPT 64 U/L (7.0-40); AST/SGOT 130 U/L (<34); CALCIUM LEVEL 9.1 MG/DL (8.3-10.6); CARBON DIOXIDE LEVEL 26 MMOL/L (20-31); CHLORIDE LEVEL 105 MMOL/L (98-107); CREATININE FOR GFR 0.71 MG/DL (0.70-1.30); GLOMERULAR FILTRATION RATE > 90.0 (>42); POTASSIUM SERUM 4.2 MMOL/L (3.5-5.1); SODIUM LEVEL 144 MMOL/L (136-145)
[2025-05-03 14:41] LABS: BASO # 0.0 10^3/uL (0.0-0.2); BASO % 0.2 % (0.0-1.0); EOS # 0.3 10^3/uL (0.0-0.5); EOS % 5.7 % (0.0-3.0); LYMPH # 0.8 10^3/uL (1.5-5.0); LYMPH % 14.8 % (24.0-44.0); MONO # 0.6 10^3/uL (0.0-0.8); MONO % 9.8 % (2.0-8.0); NEUTROPHILS # 3.9 10^3/uL (1.5-8.5); NEUTROPHILS % 68.8 % (36.0-66.0); PLATELET COUNT, AUTOMATED 175 10^3/uL (150-450)
[2025-05-03 16:57] VITALS: BP 122/67; TEMP 98.2; O2SAT 96
[2025-05-03] MEDS ORDERED: GLUCOSE 4 GM CHEW PO PRN (17:45)
[2025-05-03] MEDS ORDERED: DEXTROSE 50% 50 ML SYRINGE IV PRN (17:45)
[2025-05-03] MEDS ORDERED: GLUCAGON INJ 1 MG VIAL SC PRN (17:45)
[2025-05-03] MEDS: INSULIN LISPRO (NovoLOG) PER UNIT SC STA (18:20)
[2025-05-03 19:23] VITALS: BP 139/72; TEMP 97.3; O2SAT 97
[2025-05-03] MEDS: INSULIN LISPRO (NovoLOG) PER UNIT SC SCH (21:46)
[2025-05-03 23:14] VITALS: BP 101/54; TEMP 98.2; O2SAT 97
[2025-05-04 03:48] VITALS: BP 128/68; TEMP 98.2; O2SAT 98
[2025-05-04 06:38] LABS: ALT/SGPT 86 U/L (7.0-40); AST/SGOT 118 U/L (<34); CALCIUM LEVEL 8.4 MG/DL (8.3-10.6); CARBON DIOXIDE LEVEL 27 MMOL/L (20-31); CHLORIDE LEVEL 108 MMOL/L (98-107); CREATININE FOR GFR 0.86 MG/DL (0.70-1.30); GLOMERULAR FILTRATION RATE > 90.0 (>42); POTASSIUM SERUM 4.1 MMOL/L (3.5-5.1); SODIUM LEVEL 145 MMOL/L (136-145)
[2025-05-04 07:43] VITALS: BP 122/64; TEMP 98.1; O2SAT 97
[2025-05-04 08:43] VITALS: BP 122/64
[2025-05-04] MEDS: INSULIN LISPRO (NovoLOG) PER UNIT SC SCH (08:45)
[2025-05-04] MEDS ORDERED: LEVO1TAB40 PO (11:19)
[2025-05-04 12:26] VITALS: BP 120/62; TEMP 98; O2SAT 98
== END 2025-05-04 14:19 | disposition home or self-care (01) | DRG 689 ==
LOC: M ED 08:31 → EDBD 08:31 → M ED INP 08:32 → OBSVTOIN 05-03 13:51 → M PCU 05-03 16:47
PROVIDERS: ADMIT Internal Medicine; ATTEND Internal Medicine
PROC: B246ZZZ Ultrasonography of Right and Left Heart (ICD-10-PCS; principal; 2025-05-03)
DX: N13.6 Pyonephrosis (principal); G93.41 Metabolic encephalopathy; I50.32 Chronic diastolic (congestive) heart failure; B18.1 Chronic viral hepatitis B without delta-agent; E11.9 Type 2 diabetes mellitus without complications; I11.0 Hypertensive heart disease with heart failure; G30.9 Alzheimer's disease, unspecified; F02.80 Dementia in other diseases classified elsewhere, unspecified severity, without behavioral disturbance, psychotic disturbance, mood disturbance, and anxiety; R74.01 Elevation of levels of liver transaminase levels; F79 Unspecified intellectual disabilities; K59.00 Constipation, unspecified; G40.909 Epilepsy, unspecified, not intractable, without status epilepticus; F34.1 Dysthymic disorder; N32.3 Diverticulum of bladder; C67.9 Malignant neoplasm of bladder, unspecified; I27.20 Pulmonary hypertension, unspecified; I08.0 Rheumatic disorders of both mitral and aortic valves; D50.9 Iron deficiency anemia, unspecified; I48.91 Unspecified atrial fibrillation; G89.29 Other chronic pain; R32 Unspecified urinary incontinence; I25.10 Atherosclerotic heart disease of native coronary artery without angina pectoris; M48.061 Spinal stenosis, lumbar region without neurogenic claudication; N40.1 Benign prostatic hyperplasia with lower urinary tract symptoms; K57.30 Diverticulosis of large intestine without perforation or abscess without bleeding; R33.9 Retention of urine, unspecified; Z79.01 Long term (current) use of anticoagulants; Z79.82 Long term (current) use of aspirin; Z79.4 Long term (current) use of insulin; Z79.899 Other long term (current) drug therapy; Z88.6 Allergy status to analgesic agent; Z88.8 Allergy status to other drugs, medicaments and biological substances; Z91.048 Other nonmedicinal substance allergy status; Z99.3 Dependence on wheelchair; Z95.3 Presence of xenogenic heart valve

== ENCOUNTER → 2025-05-12 | Outpatient (CLI) | payer MEDICARE, MEDICAID ==
[~2025-05-12] MED LIST changes: +LEVO1TAB40 PO; +LOPR1TAB6 PO; +MIRA3350 PO
[2025-05-12 17:53] LABS: BASO # 0.0 10^3/uL (0.0-0.2); BASO % 0.2 % (0.0-1.0); EOS # 0.7 10^3/uL (0.0-0.5); EOS % 12.6 % (0.0-3.0); LYMPH # 1.1 10^3/uL (1.5-5.0); LYMPH % 21.0 % (24.0-44.0); MONO # 0.5 10^3/uL (0.0-0.8); MONO % 8.5 % (2.0-8.0); NEUTROPHILS # 3.1 10^3/uL (1.5-8.5); NEUTROPHILS % 56.8 % (36.0-66.0); PLATELET COUNT, AUTOMATED 239 10^3/uL (150-450)
[2025-05-12 17:57] LABS: ALT/SGPT 44 U/L (7.0-40); AST/SGOT 48 U/L (<34); CALCIUM LEVEL 9.3 MG/DL (8.3-10.6); CARBON DIOXIDE LEVEL 22 MMOL/L (20-31); CHLORIDE LEVEL 103 MMOL/L (98-107); CREATININE FOR GFR 0.74 MG/DL (0.70-1.30); DIGOXIN LEVEL 1.1 NG/ML (0.8-2.0); GLOMERULAR FILTRATION RATE > 90.0 (>42); POTASSIUM SERUM 4.8 MMOL/L (3.5-5.1); SODIUM LEVEL 143 MMOL/L (136-145)
== END ==
LOC: M PLALAB 14:45
PROVIDERS: ATTEND Internal Medicine
DX: N10 Acute pyelonephritis (principal); I48.91 Unspecified atrial fibrillation

== ENCOUNTER → 2025-05-19 | Outpatient (CLI) | payer MEDICARE, MEDICAID ==
[~2025-05-19] MED LIST changes: +AMPI500C9 PO; +METO37.5 PO; +PROB250C PO; +SYST1SOL4 OP
== END ==
LOC: M EKG 10:19
PROVIDERS: ATTEND Urology
DX: Z85.51 Personal history of malignant neoplasm of bladder (principal)

== ENCOUNTER 2025-05-24 14:16 | Inpatient (IN) | payer MEDICARE, MEDICAID ==
[~2025-05-24] VITALS: Ht 165.1 cm; Wt 65.3 kg
[~2025-05-24 14:16] MED LIST changes: -AMPI500C9 PO; -METO37.5 PO; -PROB250C PO
[2025-05-24 15:22] LABS: BASO # 0.0 10^3/uL (0.0-0.2); BASO % 0.4 % (0.0-1.0); EOS # 0.8 10^3/uL (0.0-0.5); EOS % 15.0 % (0.0-3.0); LYMPH # 1.2 10^3/uL (1.5-5.0); LYMPH % 22.6 % (24.0-44.0); MONO # 0.5 10^3/uL (0.0-0.8); MONO % 9.2 % (2.0-8.0); NEUTROPHILS # 2.9 10^3/uL (1.5-8.5); NEUTROPHILS % 52.4 % (36.0-66.0); PLATELET COUNT, AUTOMATED 238 10^3/uL (150-450)
[2025-05-24] MEDS: LIDOCAINE 2% 5 ML JELLY UROJET TOP ONE (15:35)
[2025-05-24] MEDS: NS 500 ML IV ONE (15:57)
[2025-05-24 16:27] LABS: APPEARANCE, URINE HAZY (CLEAR); BACTERIA, URINE AUTO NEGATIVE (NEGATIVE); BILIRUBIN, URINE AUTO NEGATIVE (NEGATIVE); BLOOD, URINE BLOOD 3+ (NEGATIVE); GLUCOSE, URINE (UA) AUTO NEGATIVE (NEGATIVE); KETONE, URINE AUTO TRACE mg/dL (NEGATIVE); LEUKOCYTE ESTERASE, URINE AUTO 2+ (NEGATIVE); MUCUS, URINE SMALL (NEGATIVE); NITRITE, URINE AUTO NEGATIVE (NEGATIVE); PROTEIN, URINE AUTO 2+ mg/dL (NEGATIVE); RBC, URINE AUTO TNTC /HPF (0-3); SPECIFIC GRAVITY URINE AUTO 1.015 (1.002-1.035); SQUAMOUS EPITHELIAL CELL UR AU 0 /HPF (0-6); UROBILINOGEN, URINE AUTO 0.2 mg/dL (0.0-2.0); WBC, URINE AUTO 9 /HPF (0-3)
[2025-05-24] MEDS: [UNRECOGNIZED DRUG - OTHER] IV ONE (16:49)
[2025-05-24] MEDS: NS 0.9% IV ONE (16:49)
[2025-05-24 16:52] LABS: C REACTIVE PROTEIN QUANTITATIV 2.86 MG/DL (<1.0)
[2025-05-24 16:53] LABS: DIGOXIN LEVEL 1.1 NG/ML (0.8-2.0)
[2025-05-24 17:09] LABS: ALT/SGPT 31 U/L (7.0-40); AST/SGOT 35 U/L (<34); CALCIUM LEVEL 9.0 MG/DL (8.3-10.6); CARBON DIOXIDE LEVEL 24 MMOL/L (20-31); CHLORIDE LEVEL 100 MMOL/L (98-107); CK-MB VALUE MASS 2.0 NG/ML (<3.6); CPK CREATINE PHOSPHOKINASE 30 U/L (46-171); CREATININE FOR GFR 1.02 MG/DL (0.70-1.30); GLOMERULAR FILTRATION RATE 77.6 (>42); MB/CK RELATIVE INDEX 6.66 (< OR =4); POTASSIUM SERUM 5.4 MMOL/L (3.5-5.1); SODIUM LEVEL 139 MMOL/L (136-145)
[2025-05-24 18:16] LABS: CK-MB VALUE MASS 2.3 NG/ML (<3.6)
[2025-05-24 18:18] LABS: CPK CREATINE PHOSPHOKINASE 28.0 U/L (46-171); MB/CK RELATIVE INDEX 8.21 (< OR =4)
[2025-05-24] MEDS ORDERED: ISOVUE-370 76% 100 ML VIAL As Ordered ONE (20:30)
[2025-05-24] MEDS ORDERED: HOME MED LIST COMPLETE! XX SCH (20:35)
[2025-05-24] MEDS: LR 1,000 ML IV SCH (20:39)
[2025-05-24] MEDS: AMIODARONE HCL 150 MG in IV 1 EA IV SCH (20:57)
[2025-05-24] MEDS: PIPERACILLIN/TAZOBACTAM SOD 3.375 GM in DEXTROSE 5% (D5W) ADV/MINI-BAG 50 ML IV SCH (21:13)
[2025-05-24] MEDS ORDERED: GLUCAGON INJ 1 MG VIAL SC PRN (22:40)
[2025-05-24] MEDS ORDERED: MIRALAX *UNIT DOSE* 17 GM PACKET PO PRN (22:40)
[2025-05-24] MEDS ORDERED: GLUCOSE 4 GM CHEW PO PRN (22:40)
[2025-05-24] MEDS ORDERED: DEXTROSE 50% 50 ML SYRINGE IV PRN (22:40)
[2025-05-24] MEDS: OLANZapine 10 MG TAB PO SCH (22:56)
[2025-05-24] MEDS: METOPROLOL TART 50 MG TAB PO SCH (22:56)
[2025-05-24] MEDS: PHENYTOIN ER 100 MG CAP PO SCH (23:33)
[2025-05-25] MEDS: AMIODARONE HCL 360 MG in IV 1 EA IV SCH ×2 (00:14→05:58)
[2025-05-25 00:15] VITALS: BP 143/84; TEMP 97; O2SAT 100
[2025-05-25] MEDS ORDERED: traMADol 50 MG TAB PO PRN (00:45)
[2025-05-25] MEDS: MIRALAX *UNIT DOSE* 17 GM PACKET PO SCH (01:18)
[2025-05-25] MEDS: BISACODYL 10 MG SUPP PR SCH (01:19)
[2025-05-25] MEDS: SENNA 8.6 MG TAB PO SCH (01:19)
[2025-05-25 01:53] LABS: CALCIUM LEVEL 8.5 MG/DL (8.3-10.6); CARBON DIOXIDE LEVEL 29.0 MMOL/L (20-31); CHLORIDE LEVEL 104.0 MMOL/L (98-107); CREATININE FOR GFR 0.95 MG/DL (0.70-1.30); GLOMERULAR FILTRATION RATE 84.5 (>42); POTASSIUM SERUM 4.8 MMOL/L (3.5-5.1); SODIUM LEVEL 141.0 MMOL/L (136-145)
[2025-05-25] MEDS: VANCOMYCIN HCL 1,000 MG, VIAL MATE ADAPTER 1 EACH in NS 250 ML IV ONE (03:18)
[2025-05-25 03:27] VITALS: BP 136/75; TEMP 97; O2SAT 99
[2025-05-25 06:15] LABS: PLATELET COUNT, AUTOMATED 189 10^3/uL (150-450)
[2025-05-25 06:42] LABS: CALCIUM LEVEL 8.4 MG/DL (8.3-10.6); CARBON DIOXIDE LEVEL 29.0 MMOL/L (20-31); CHLORIDE LEVEL 105.0 MMOL/L (98-107); CREATININE FOR GFR 0.95 MG/DL (0.70-1.30); DIGOXIN LEVEL 1.8 NG/ML (0.8-2.0); GLOMERULAR FILTRATION RATE 84.5 (>42); POTASSIUM SERUM 4.8 MMOL/L (3.5-5.1); SODIUM LEVEL 142.0 MMOL/L (136-145)
[2025-05-25] MEDS ORDERED: MOM 30 ML SUSPENSION UDC PO PRN (07:05)
[2025-05-25] MEDS ORDERED: INSULIN LISPRO (NovoLOG) PER UNIT SC SCH ×2 (07:30→21:00)
[2025-05-25] MEDS: INSULIN LISPRO (NovoLOG) PER UNIT SC SCH (07:45)
[2025-05-25 08:39] VITALS: BP 130/58; TEMP 97.7; O2SAT 97
[2025-05-25] MEDS: ASPIRIN 81 MG ENTERIC TABLET PO SCH (08:52)
[2025-05-25] MEDS: PARoxetine 20MG TABLET PO SCH (08:52)
[2025-05-25] MEDS: DOCUSATE SODIUM 100 MG CAPSULE PO SCH (08:52)
[2025-05-25] MEDS: TRIHEXYPHENIDYL 2 MG TAB PO SCH (08:52)
[2025-05-25] MEDS: MOM 30 ML SUSPENSION UDC PO ONE (08:52)
[2025-05-25] MEDS: FINASTERIDE 5 MG TAB PO SCH (08:53)
[2025-05-25] MEDS: MEMANTINE 5 MG TABLET PO SCH (08:53)
[2025-05-25] MEDS ORDERED: METOPROLOL TART 50 MG TAB PO SCH (09:00)
[2025-05-25] MEDS: VANCOMYCIN HCL 1,000 MG, VIAL MATE ADAPTER 1 EACH in NS 250 ML IV SCH (11:13)
[2025-05-25 12:00] VITALS: BP 134/60; TEMP 97.8; O2SAT 96
[2025-05-25 16:03] VITALS: BP 133/66; TEMP 97.2; O2SAT 100
[2025-05-25] MEDS: cefTRIAXone SOD 1 GM in DEXTROSE 5% (D5W) ADV/MINI-BAG 50 ML IV SCH (16:09)
[2025-05-25] MEDS ORDERED: PILL CUTTER 1 EACH XX ONE (16:10)
[2025-05-25] MEDS: METOPROLOL TART 50 MG TAB PO SCH (16:14)
[2025-05-25] MEDS: INSULIN GLARGINE-YFGN 1 UNITS/0.01 ML SC SCH (20:20)
[2025-05-25] MEDS: FOLIC ACID 1 MG TAB PO SCH (20:21)
[2025-05-25 20:25] VITALS: BP 133/69; TEMP 96.6; O2SAT 99
[2025-05-26 03:41] VITALS: BP 135/69; TEMP 97.1; O2SAT 93
[2025-05-26 07:14] VITALS: BP 141/65; TEMP 97.2; O2SAT 98
[2025-05-26 07:24] LABS: PLATELET COUNT, AUTOMATED 188 10^3/uL (150-450)
[2025-05-26 07:53] LABS: VANCOMYCIN RANDOM 29.5 UG/ML
[2025-05-26 07:54] LABS: DIGOXIN LEVEL 1.1 NG/ML (0.8-2.0)
[2025-05-26 07:58] LABS: CALCIUM LEVEL 8.4 MG/DL (8.3-10.6); CARBON DIOXIDE LEVEL 29.0 MMOL/L (20-31); CHLORIDE LEVEL 106.0 MMOL/L (98-107); CREATININE FOR GFR 0.96 MG/DL (0.70-1.30); GLOMERULAR FILTRATION RATE 83.5 (>42); POTASSIUM SERUM 4.3 MMOL/L (3.5-5.1); SODIUM LEVEL 144.0 MMOL/L (136-145)
[2025-05-26] MEDS ORDERED: PROB250C PO (08:06)
[2025-05-26] MEDS ORDERED: AMPI500C9 PO (08:06)
[2025-05-26 10:03] VITALS: BP 127/80
[2025-05-26] MEDS ORDERED: METO37.5 PO ×2 (10:43→10:47)
[2025-05-26] MEDS ORDERED: METOPROLOL TART 12.5 MG PER 1/2 TAB PO ONE (10:45)
[2025-05-26 10:54] VITALS: BP 126/74
[2025-05-26 10:56] VITALS: BP 126/74
[2025-05-26] MEDS: METOPROLOL TART 25 MG TABLET PO ONE (10:56)
[2025-05-26 11:21] VITALS: BP 107/74; TEMP 97.4; O2SAT 98
[2025-05-26] MEDS: ACETAMINOPHEN 325 MG TAB PO PRN (13:39)
[2025-05-26] MEDS ORDERED: LanTUS (INSULIN GLARGINE INJ) 1 UNITS/0.01 ML SC SCH (21:00)
[2025-05-28] MEDS ORDERED: CARBAMIDE PEROXIDE 6.5% OTIC SOLN 15 ML AU SCH (09:00)
== END 2025-05-26 16:35 | disposition home or self-care (01) | DRG 872 ==
LOC: M ED 15:09 → M ED INP 22:47 → EEVIPCON 22:47 → M PCU 23:59
PROVIDERS: ADMIT Student in an Organized Health Care Education/Training Program; ATTEND Internal Medicine
PROC: B246ZZZ Ultrasonography of Right and Left Heart (ICD-10-PCS; principal; 2025-05-25)
DX: A41.9 Sepsis, unspecified organism (principal); I50.32 Chronic diastolic (congestive) heart failure; N13.6 Pyonephrosis; E87.20 Acidosis, unspecified; I48.92 Unspecified atrial flutter; J40 Bronchitis, not specified as acute or chronic; F02.80 Dementia in other diseases classified elsewhere, unspecified severity, without behavioral disturbance, psychotic disturbance, mood disturbance, and anxiety; G30.9 Alzheimer's disease, unspecified; F34.1 Dysthymic disorder; E11.9 Type 2 diabetes mellitus without complications; I27.20 Pulmonary hypertension, unspecified; I11.0 Hypertensive heart disease with heart failure; G40.909 Epilepsy, unspecified, not intractable, without status epilepticus; D64.9 Anemia, unspecified; F79 Unspecified intellectual disabilities; I25.10 Atherosclerotic heart disease of native coronary artery without angina pectoris; M48.061 Spinal stenosis, lumbar region without neurogenic claudication; K59.00 Constipation, unspecified; N40.0 Benign prostatic hyperplasia without lower urinary tract symptoms; G89.29 Other chronic pain; R00.0 Tachycardia, unspecified; M54.16 Radiculopathy, lumbar region; B18.2 Chronic viral hepatitis C; Z85.51 Personal history of malignant neoplasm of bladder; Z79.4 Long term (current) use of insulin; Z79.899 Other long term (current) drug therapy; Z79.82 Long term (current) use of aspirin; Z88.6 Allergy status to analgesic agent; Z88.8 Allergy status to other drugs, medicaments and biological substances; Z91.048 Other nonmedicinal substance allergy status; Z95.2 Presence of prosthetic heart valve

== ENCOUNTER → 2025-05-24 | Outpatient (CLI) | payer MEDICARE, MEDICAID ==
[2025-05-24 13:30] LABS: ALT/SGPT 33 U/L (7.0-40); AST/SGOT 35 U/L (<34); CALCIUM LEVEL 9.3 MG/DL (8.3-10.6); CARBON DIOXIDE LEVEL 27 MMOL/L (20-31); CHLORIDE LEVEL 99 MMOL/L (98-107); CREATININE FOR GFR 1.07 MG/DL (0.70-1.30); GLOMERULAR FILTRATION RATE 73.3 (>42); POTASSIUM SERUM 5.0 MMOL/L (3.5-5.1); SODIUM LEVEL 141 MMOL/L (136-145)
[2025-05-24 13:35] LABS: INR 0.95
== END ==
LOC: M PLALAB 09:57
PROVIDERS: ATTEND Urology
DX: Z85.51 Personal history of malignant neoplasm of bladder (principal)

== ENCOUNTER → 2025-05-24 | Outpatient (CLI) | payer MEDICARE, MEDICAID ==
[2025-05-24 13:22] LABS: PLATELET COUNT, AUTOMATED 228 10^3/uL (150-450)
[2025-05-24 13:30] LABS: IRON (FE) 31.0 UG/DL (65-175)
[2025-05-24 14:17] LABS: EOSINOPHILS 12 % (0-3); LYMPHOCYTES 24 % (16-44); MONOCYTES 5 % (0-5); NEUTROPHILS 59 % (28-66); PLATELET ESTIMATE NORMAL (NORMAL)
== END ==
LOC: M PLALAB 09:55
PROVIDERS: ATTEND Internal Medicine
DX: C57.9 Malignant neoplasm of female genital organ, unspecified (principal); D64.9 Anemia, unspecified

== ENCOUNTER → 2025-06-01 | Outpatient (CLI) | payer MEDICARE, MEDICAID ==
[~2025-06-01] MED LIST changes: +AMPI500C9 PO; +METO37.5 PO; +PROB250C PO
[2025-06-01 13:41] LABS: PLATELET COUNT, AUTOMATED 209 10^3/uL (150-450)
[2025-06-01 13:50] LABS: DIGOXIN LEVEL 0.8 NG/ML (0.8-2.0)
[2025-06-01 13:53] LABS: ALT/SGPT 24.0 U/L (7.0-40); AST/SGOT 19.0 U/L (<34); CALCIUM LEVEL 9.7 MG/DL (8.3-10.6); CARBON DIOXIDE LEVEL 30.0 MMOL/L (20-31); CHLORIDE LEVEL 101.0 MMOL/L (98-107); CREATININE FOR GFR 0.96 MG/DL (0.70-1.30); GLOMERULAR FILTRATION RATE 83.5 (>42); POTASSIUM SERUM 5.2 MMOL/L (3.5-5.1); SODIUM LEVEL 140.0 MMOL/L (136-145)
== END ==
LOC: M PLALAB 09:24
PROVIDERS: ATTEND Internal Medicine
DX: I48.92 Unspecified atrial flutter (principal)

== ENCOUNTER → 2025-06-02 | Outpatient (CLI) | payer MEDICARE, MEDICAID ==
[~2025-06-02] MED LIST changes: +AMIO200T54 PO; +ELIQ5TAB PO; +METO100T5 PO; +METO1TAB33 PO
== END ==
LOC: M EKG 11:39
PROVIDERS: ATTEND Physician Assistant
DX: I48.92 Unspecified atrial flutter (principal)

== ENCOUNTER 2025-06-07 15:13 | Inpatient (IN) | payer MEDICARE, MEDICAID ==
[~2025-06-07] VITALS: Ht 165.1 cm; Wt 63.4 kg
[~2025-06-07 15:13] MED LIST changes: -AMIO200T54 PO; -ELIQ5TAB PO; -METO100T5 PO; -METO1TAB33 PO
[2025-06-07 16:03] LABS: BASO # 0.0 10^3/uL (0.0-0.2); BASO % 0.4 % (0.0-1.0); EOS # 0.7 10^3/uL (0.0-0.5); EOS % 13.6 % (0.0-3.0); LYMPH # 1.5 10^3/uL (1.5-5.0); LYMPH % 28.5 % (24.0-44.0); MONO # 0.4 10^3/uL (0.0-0.8); MONO % 8.3 % (2.0-8.0); NEUTROPHILS # 2.5 10^3/uL (1.5-8.5); NEUTROPHILS % 48.8 % (36.0-66.0); PLATELET COUNT, AUTOMATED 187 10^3/uL (150-450)
[2025-06-07 17:40] LABS: KETONE, URINE AUTO RFX NEGATIVE (NEGATIVE); LEUKOCYTE ESTERASE UR AUTO RFX NEGATIVE (NEGATIVE); MUCUS, URINE RFX SMALL (NEGATIVE); NITRITE, URINE AUTO RFX NEGATIVE (NEGATIVE); RBC, URINE AUTO RFX 6 /HPF (0-3); SQUAM EPITHELIAL CELL UR AURFX 0 /HPF (0-6); WBC, URINE AUTO RFX 4 /HPF (0-3)
[2025-06-07 17:55] LABS: CPK CREATINE PHOSPHOKINASE 28 U/L (46-171)
[2025-06-07 17:59] LABS: ALT/SGPT 23 U/L (7.0-40); AST/SGOT 18 U/L (<34); CALCIUM LEVEL 9.3 MG/DL (8.3-10.6); CARBON DIOXIDE LEVEL 22 MMOL/L (20-31); CHLORIDE LEVEL 99 MMOL/L (98-107); CK-MB VALUE MASS 1.8 NG/ML (<3.6); CREATININE FOR GFR 0.83 MG/DL (0.70-1.30); FREE T4 0.90 NG/DL (0.89-1.76); GLOMERULAR FILTRATION RATE > 90.0 (>42); MAGNESIUM LEVEL 2.0 MG/DL (1.8-2.4); MB/CK RELATIVE INDEX 6.42 (< OR =4); POTASSIUM SERUM 5.1 MMOL/L (3.5-5.1); SODIUM LEVEL 136 MMOL/L (136-145)
[2025-06-07 19:28] LABS: CK-MB VALUE MASS 1.8 NG/ML (<3.6)
[2025-06-07 19:29] LABS: CPK CREATINE PHOSPHOKINASE 24.0 U/L (46-171); MB/CK RELATIVE INDEX 7.5 (< OR =4)
[2025-06-07] MEDS: AMIODARONE 200 MG TAB PO STA (19:50)
[2025-06-07] MEDS ORDERED: GLUCOSE 4 GM CHEW PO PRN (20:05)
[2025-06-07] MEDS ORDERED: GLUCAGON INJ 1 MG VIAL SC PRN (20:05)
[2025-06-07] MEDS ORDERED: DEXTROSE 50% 50 ML SYRINGE IV PRN (20:05)
[2025-06-07] MEDS ORDERED: MED REC IN PROGRESS XX SCH (20:20)
[2025-06-07] MEDS: OLANZapine 10 MG TAB PO SCH (21:00)
[2025-06-07] MEDS: INSULIN LISPRO (NovoLOG) PER UNIT SC SCH (21:52)
[2025-06-07] MEDS: METOPROLOL TART 25 MG TABLET PO SCH (21:53)
[2025-06-07] MEDS ORDERED: METO50TA7 PO (23:32)
[2025-06-08] VITALS (13 sets, daily range): BP systolic 88–151; BP diastolic 55–92; TEMP 97.1–98.2; O2SAT 94–100
[2025-06-08] MEDS ORDERED: METO100T5 PO (00:02)
[2025-06-08] MEDS ORDERED: HOME MED LIST COMPLETE! XX SCH (00:10)
[2025-06-08] MEDS ORDERED: CARBAMIDE PEROXIDE 6.5% OTIC SOLN 15 ML AU SCH (04:45)
[2025-06-08] MEDS ORDERED: MIRALAX *UNIT DOSE* 17 GM PACKET PO PRN (04:45)
[2025-06-08] MEDS ORDERED: guaiFENesin SYRUP 200 MG/10 ML UDC PO PRN (04:45)
[2025-06-08] MEDS ORDERED: traMADol 50 MG TAB PO PRN (04:45)
[2025-06-08] MEDS: TRIHEXYPHENIDYL 2 MG TAB PO SCH (06:36)
[2025-06-08] MEDS: PHENYTOIN ER 100 MG CAP PO SCH (06:36)
[2025-06-08] MEDS: APIXABAN 2.5 MG TAB PO SCH (06:37)
[2025-06-08 06:54] LABS: PLATELET COUNT, AUTOMATED 181 10^3/uL (150-450)
[2025-06-08 07:17] LABS: CALCIUM LEVEL 8.9 MG/DL (8.3-10.6); CARBON DIOXIDE LEVEL 30 MMOL/L (20-31); CHLORIDE LEVEL 102 MMOL/L (98-107); CREATININE FOR GFR 0.68 MG/DL (0.70-1.30); GLOMERULAR FILTRATION RATE > 90.0 (>42); MAGNESIUM LEVEL 1.9 MG/DL (1.8-2.4); POTASSIUM SERUM 5.0 MMOL/L (3.5-5.1); SODIUM LEVEL 139 MMOL/L (136-145)
[2025-06-08] MEDS: NYSTATIN 100,000 UNITS/GM TOPICAL PWD 15 GM TOP SCH (08:31)
[2025-06-08] MEDS: ASPIRIN 81 MG ENTERIC TABLET PO SCH (08:32)
[2025-06-08] MEDS: LanTUS (INSULIN GLARGINE INJ) 1 UNITS/0.01 ML SC SCH (08:32)
[2025-06-08] MEDS: PARoxetine 20MG TABLET PO SCH (08:33)
[2025-06-08] MEDS: FINASTERIDE 5 MG TAB PO SCH (08:35)
[2025-06-08] MEDS: MEMANTINE 5 MG TABLET PO SCH (08:35)
[2025-06-08] MEDS: FERROUS GLUCONATE 324 MG TAB PO SCH (08:35)
[2025-06-08] MEDS: AMIODARONE 200 MG TAB PO SCH (08:38)
[2025-06-08] MEDS: INSULIN LISPRO (NovoLOG) PER UNIT SC SCH (10:16)
[2025-06-08] MEDS: DIGOXIN INJ 0.5 MG/2 ML AMP IV ONE (11:17)
[2025-06-08] MEDS: METOPROLOL TART 12.5 MG PER 1/2 TAB PO SCH (12:45)
[2025-06-08] MEDS: FOLIC ACID 1 MG TAB PO SCH (22:18)
[2025-06-09] VITALS (8 sets, daily range): BP systolic 95–124; BP diastolic 54–79; TEMP 97.1–98; O2SAT 94–99
[2025-06-09 07:28] LABS: PLATELET COUNT, AUTOMATED 161 10^3/uL (150-450)
[2025-06-09 07:55] LABS: CALCIUM LEVEL 8.6 MG/DL (8.3-10.6); CARBON DIOXIDE LEVEL 32.0 MMOL/L (20-31); CHLORIDE LEVEL 102.0 MMOL/L (98-107); CREATININE FOR GFR 1.03 MG/DL (0.70-1.30); GLOMERULAR FILTRATION RATE 76.7 (>42); MAGNESIUM LEVEL 2.1 MG/DL (1.8-2.4); POTASSIUM SERUM 4.5 MMOL/L (3.5-5.1); SODIUM LEVEL 138.0 MMOL/L (136-145)
[2025-06-09] MEDS: METOPROLOL TART 25 MG TABLET PO SCH (13:30)
[2025-06-10] VITALS (7 sets, daily range): BP systolic 105–132; BP diastolic 57–83; TEMP 97.1–98; O2SAT 94–99
[2025-06-10 05:31] LABS: PLATELET COUNT, AUTOMATED 202 10^3/uL (150-450)
[2025-06-10 06:05] LABS: CALCIUM LEVEL 8.9 MG/DL (8.3-10.6); CARBON DIOXIDE LEVEL 32.0 MMOL/L (20-31); CHLORIDE LEVEL 102.0 MMOL/L (98-107); CREATININE FOR GFR 0.91 MG/DL (0.70-1.30); GLOMERULAR FILTRATION RATE 89.0 (>42); MAGNESIUM LEVEL 2.2 MG/DL (1.8-2.4); POTASSIUM SERUM 4.7 MMOL/L (3.5-5.1); SODIUM LEVEL 139.0 MMOL/L (136-145)
[2025-06-10] MEDS: ASPIRIN 81 MG CHEWABLE TABLET PO SCH (11:39)
[2025-06-10] MEDS: FERROUS SULFATE 300 MG/5 ML UDC LIQUID PO SCH (11:40)
[2025-06-10] MEDS: PARoxetine 10MG/5ML SUSP ORAL SYRINGE *DRAW UP EXACT DOSE PO SCH (11:40)
[2025-06-10] MEDS: PHENYTOIN 125MG/5ML SUSP ORAL SYRINGE *DRAW UP EXACT DOSE PO SCH (11:40)
[2025-06-11] VITALS (11 sets, daily range): BP systolic 97–128; BP diastolic 56–82; TEMP 97–100.6; O2SAT 96–99
[2025-06-11 05:16] LABS: PLATELET COUNT, AUTOMATED 164 10^3/uL (150-450)
[2025-06-11 05:39] LABS: CALCIUM LEVEL 8.6 MG/DL (8.3-10.6); CARBON DIOXIDE LEVEL 31.0 MMOL/L (20-31); CHLORIDE LEVEL 105.0 MMOL/L (98-107); CREATININE FOR GFR 0.94 MG/DL (0.70-1.30); GLOMERULAR FILTRATION RATE 85.6 (>42); MAGNESIUM LEVEL 2.0 MG/DL (1.8-2.4); POTASSIUM SERUM 4.3 MMOL/L (3.5-5.1); SODIUM LEVEL 141.0 MMOL/L (136-145)
[2025-06-11 17:55] LABS: INR 1.02
[2025-06-11 18:12] LABS: CREATININE FOR GFR 0.94 MG/DL (0.70-1.30); GLOMERULAR FILTRATION RATE 85.6 (>42)
[2025-06-11] MEDS: ACETAMINOPHEN 325 MG TAB PO PRN (21:04)
[2025-06-12] MEDS: METOPROLOL 5 MG/5 ML VIAL IV ONE (00:43)
[2025-06-12 03:29] VITALS: BP 128/81; TEMP 98.8; O2SAT 99
[2025-06-12 06:17] LABS: PLATELET COUNT, AUTOMATED 155 10^3/uL (150-450)
[2025-06-12 06:49] LABS: CALCIUM LEVEL 8.3 MG/DL (8.3-10.6); CARBON DIOXIDE LEVEL 31.0 MMOL/L (20-31); CHLORIDE LEVEL 103.0 MMOL/L (98-107); CREATININE FOR GFR 1.08 MG/DL (0.70-1.30); GLOMERULAR FILTRATION RATE 72.5 (>42); MAGNESIUM LEVEL 2.0 MG/DL (1.8-2.4); POTASSIUM SERUM 4.2 MMOL/L (3.5-5.1); SODIUM LEVEL 138.0 MMOL/L (136-145)
[2025-06-12 07:30] VITALS: BP 105/75; TEMP 98.2; O2SAT 99
[2025-06-12] MEDS: METOPROLOL SUCC. 50 MG *XL* TAB PO SCH (09:44)
[2025-06-12 11:46] VITALS: BP 108/63; TEMP 97.2; O2SAT 99
[2025-06-12 11:49] VITALS: BP 137/64; TEMP 97.8; O2SAT 95
[2025-06-12] MEDS: AMIODARONE HCL 360 MG in IV 1 EA IV SCH ×2 (14:15→22:10)
[2025-06-12 20:22] VITALS: BP 130/67; TEMP 98.2; O2SAT 99
[2025-06-12 23:43] VITALS: BP 114/68; TEMP 97.4; O2SAT 96
[2025-06-13 04:06] VITALS: BP 115/77; TEMP 97.5; O2SAT 97
[2025-06-13 07:13] VITALS: BP 116/75; O2SAT 96
[2025-06-13 07:59] LABS: CALCIUM LEVEL 8.2 MG/DL (8.3-10.6); CARBON DIOXIDE LEVEL 31.0 MMOL/L (20-31); CHLORIDE LEVEL 104.0 MMOL/L (98-107); CREATININE FOR GFR 1.08 MG/DL (0.70-1.30); GLOMERULAR FILTRATION RATE 72.5 (>42); MAGNESIUM LEVEL 1.9 MG/DL (1.8-2.4); POTASSIUM SERUM 4.2 MMOL/L (3.5-5.1); SODIUM LEVEL 142.0 MMOL/L (136-145)
[2025-06-13 11:33] VITALS: BP 106/61; TEMP 97.4; O2SAT 100
[2025-06-13 16:00] VITALS: BP 108/75; TEMP 97.5; O2SAT 98
[2025-06-13 19:34] VITALS: BP 111/65; TEMP 96.8; O2SAT 98
[2025-06-13 23:37] VITALS: BP 124/75; TEMP 97.6; O2SAT 97
[2025-06-14] VITALS (7 sets, daily range): BP systolic 104–138; BP diastolic 62–88; TEMP 97.5–98; O2SAT 95–100
[2025-06-14 06:16] LABS: PLATELET COUNT, AUTOMATED 151 10^3/uL (150-450)
[2025-06-14 06:30] LABS: CALCIUM LEVEL 8.3 MG/DL (8.3-10.6); CARBON DIOXIDE LEVEL 30.0 MMOL/L (20-31); CHLORIDE LEVEL 105.0 MMOL/L (98-107); CREATININE FOR GFR 1.27 MG/DL (0.70-1.30); GLOMERULAR FILTRATION RATE 59.7 (>42); MAGNESIUM LEVEL 1.9 MG/DL (1.8-2.4); POTASSIUM SERUM 4.3 MMOL/L (3.5-5.1); SODIUM LEVEL 141.0 MMOL/L (136-145)
[2025-06-14] MEDS: NS (Normal Saline) 0.9% 1,000 ML IV SCH (08:52)
[2025-06-14] MEDS: FERROUS SULFATE 300 MG/5 ML UDC LIQUID PO SCH (08:55)
[2025-06-14] MEDS: AMIODARONE 200 MG TAB PO SCH (08:56)
[2025-06-14] MEDS: METOPROLOL SUCC. 100 MG *XL* TAB PO SCH ×2 (08:57→21:03)
[2025-06-14] MEDS ORDERED: AMIODARONE 200 MG TAB PO SCH (09:00)
[2025-06-14] MEDS: APIXABAN 5 MG TAB PO SCH (20:59)
[2025-06-15 04:05] VITALS: BP 119/77; TEMP 97; O2SAT 99
[2025-06-15 05:28] LABS: PLATELET COUNT, AUTOMATED 154 10^3/uL (150-450)
[2025-06-15 05:52] LABS: CALCIUM LEVEL 8.0 MG/DL (8.3-10.6); CARBON DIOXIDE LEVEL 29.0 MMOL/L (20-31); CHLORIDE LEVEL 105.0 MMOL/L (98-107); CREATININE FOR GFR 1.14 MG/DL (0.70-1.30); GLOMERULAR FILTRATION RATE 67.9 (>42); MAGNESIUM LEVEL 1.9 MG/DL (1.8-2.4); POTASSIUM SERUM 4.6 MMOL/L (3.5-5.1); SODIUM LEVEL 139.0 MMOL/L (136-145)
[2025-06-15 08:26] VITALS: BP 116/71; TEMP 97.2; O2SAT 99
[2025-06-15 08:36] VITALS: TEMP 96.9; O2SAT 99
[2025-06-15 09:03] VITALS: BP 116/71
[2025-06-15] MEDS ORDERED: METO1TAB33 PO (10:38)
[2025-06-15] MEDS ORDERED: AMIO200T54 PO (10:38)
[2025-06-15] MEDS ORDERED: ELIQ5TAB PO (10:38)
[2025-06-15 12:10] VITALS: BP 102/55; TEMP 97.3; O2SAT 99
== END 2025-06-15 14:31 | disposition home or self-care (01) | DRG 309 ==
LOC: M ED 15:13 → M ED INP 15:14 → M PCU 06-08 00:17 → OBSVTOIN 06-10 11:32
PROVIDERS: ADMIT Student in an Organized Health Care Education/Training Program; ATTEND Student in an Organized Health Care Education/Training Program
DX: I48.92 Unspecified atrial flutter (principal); I50.32 Chronic diastolic (congestive) heart failure; B18.1 Chronic viral hepatitis B without delta-agent; F79 Unspecified intellectual disabilities; E11.9 Type 2 diabetes mellitus without complications; I11.0 Hypertensive heart disease with heart failure; G30.9 Alzheimer's disease, unspecified; F02.80 Dementia in other diseases classified elsewhere, unspecified severity, without behavioral disturbance, psychotic disturbance, mood disturbance, and anxiety; K59.00 Constipation, unspecified; I27.20 Pulmonary hypertension, unspecified; C67.9 Malignant neoplasm of bladder, unspecified; D50.9 Iron deficiency anemia, unspecified; R13.10 Dysphagia, unspecified; K57.30 Diverticulosis of large intestine without perforation or abscess without bleeding; G40.909 Epilepsy, unspecified, not intractable, without status epilepticus; F34.1 Dysthymic disorder; R41.0 Disorientation, unspecified; I25.10 Atherosclerotic heart disease of native coronary artery without angina pectoris; R19.7 Diarrhea, unspecified; N13.9 Obstructive and reflux uropathy, unspecified; N40.1 Benign prostatic hyperplasia with lower urinary tract symptoms; G89.29 Other chronic pain; Z74.01 Bed confinement status; Z79.01 Long term (current) use of anticoagulants; Z79.82 Long term (current) use of aspirin; Z79.4 Long term (current) use of insulin; Z88.6 Allergy status to analgesic agent; Z88.8 Allergy status to other drugs, medicaments and biological substances; Z91.048 Other nonmedicinal substance allergy status; Z95.3 Presence of xenogenic heart valve; Z99.3 Dependence on wheelchair

== ENCOUNTER 2025-06-27 04:55 | Emergency (ER) | payer MEDICARE, MEDICAID ==
[~2025-06-27 04:55] MED LIST changes: +AMIO200T54 PO; +ELIQ5TAB PO; +METO100T5 PO; +METO1TAB33 PO
[2025-06-27 09:43] LABS: BASO # 0.0 10^3/uL (0.0-0.2); BASO % 0.2 % (0.0-1.0); EOS # 0.6 10^3/uL (0.0-0.5); EOS % 14.5 % (0.0-3.0); LYMPH # 1.0 10^3/uL (1.5-5.0); LYMPH % 24.1 % (24.0-44.0); MONO # 0.4 10^3/uL (0.0-0.8); MONO % 8.4 % (2.0-8.0); NEUTROPHILS # 2.2 10^3/uL (1.5-8.5); NEUTROPHILS % 51.9 % (36.0-66.0); PLATELET COUNT, AUTOMATED 203 10^3/uL (150-450)
[2025-06-27 10:06] LABS: CALCIUM LEVEL 9.1 MG/DL (8.3-10.6); CARBON DIOXIDE LEVEL 32.0 MMOL/L (20-31); CHLORIDE LEVEL 99.0 MMOL/L (98-107); CREATININE FOR GFR 1.07 MG/DL (0.70-1.30); GLOMERULAR FILTRATION RATE 73.3 (>42); POTASSIUM SERUM 5.1 MMOL/L (3.5-5.1); SODIUM LEVEL 139.0 MMOL/L (136-145)
[2025-06-27] MEDS ORDERED: DEXTROSE 50% 50 ML SYRINGE IV STA (10:14)
[2025-06-27] MEDS: DEXTROSE 50% 50 ML SYRINGE IV STA (10:34)
[2025-06-27] MEDS: NS 500 ML IV ONE (12:31)
[2025-06-27 14:00] VITALS: BP 132/67; TEMP 97; O2SAT 97
[2025-06-27] MEDS ORDERED: ELIQ5TAB PO (14:11)
[2025-06-27] MEDS ORDERED: AMIO200T54 PO (14:11)
[2025-06-27] MEDS ORDERED: METO1TAB33 PO (14:11)
[2025-06-27] MEDS ORDERED: HOME MED LIST COMPLETE! XX SCH (14:15)
== END 2025-06-27 15:15 | disposition home or self-care (01) ==
LOC: M ED 04:55
DX: R31.0 Gross hematuria (principal); D50.9 Iron deficiency anemia, unspecified; N13.39 Other hydronephrosis; E11.9 Type 2 diabetes mellitus without complications; I10 Essential (primary) hypertension; N40.0 Benign prostatic hyperplasia without lower urinary tract symptoms; Z88.8 Allergy status to other drugs, medicaments and biological substances; Z79.1 Long term (current) use of non-steroidal anti-inflammatories (NSAID); Z79.01 Long term (current) use of anticoagulants; Z79.4 Long term (current) use of insulin; Z79.84 Long term (current) use of oral hypoglycemic drugs; Z79.899 Other long term (current) drug therapy

== ENCOUNTER 2025-06-29 19:38 | Observation (INO) | payer MEDICARE, MEDICAID ==
[~2025-06-29] VITALS: Ht 175.3 cm; Wt 59.9 kg
[~2025-06-29 19:38] MED LIST changes: -BACTDSTA PO; -METF-877 PO; -METO1TAB7 PO
[2025-06-29 20:45] LABS: BASO # 0.0 10^3/uL (0.0-0.2); BASO % 0.1 % (0.0-1.0); EOS # 0.8 10^3/uL (0.0-0.5); EOS % 9.2 % (0.0-3.0); LYMPH # 1.4 10^3/uL (1.5-5.0); LYMPH % 16.4 % (24.0-44.0); MONO # 0.8 10^3/uL (0.0-0.8); MONO % 9.0 % (2.0-8.0); NEUTROPHILS # 5.4 10^3/uL (1.5-8.5); NEUTROPHILS % 64.6 % (36.0-66.0); PLATELET COUNT, AUTOMATED 196 10^3/uL (150-450)
[2025-06-29 21:05] LABS: ALT/SGPT 27 U/L (7.0-40); AST/SGOT 31 U/L (<34); CALCIUM LEVEL 8.9 MG/DL (8.3-10.6); CARBON DIOXIDE LEVEL 17 MMOL/L (20-31); CHLORIDE LEVEL 99 MMOL/L (98-107); CREATININE FOR GFR 0.87 MG/DL (0.70-1.30); GLOMERULAR FILTRATION RATE > 90.0 (>42); POTASSIUM SERUM 5.8 MMOL/L (3.5-5.1); SODIUM LEVEL 135 MMOL/L (136-145)
[2025-06-29 21:19] LABS: VENOUS BASE EXCESS -6.4 (-2.0-2.0); VENOUS HCO3 20.6 MMOL/L (23.0-27.0); VENOUS O2 SATURATION 74.1 % (60.0-80.0); VENOUS PARTIAL PRESSURE CO2 47.3 mmHg (38.0-50.0); VENOUS PARTIAL PRESSURE O2 44.9 mmHg (30.0-50.0); VENOUS PH 7.257 UNITS (7.330-7.430); VENOUS STANDARD HCO3 18.9 MMOL/L; VENOUS TOTAL CO2 22.1 MMOL/L (24.0-28.0)
[2025-06-29] MEDS: NS (Normal Saline) 0.9% 1,000 ML IV ONE (21:34)
[2025-06-29 22:06] LABS: AMORPHOUS SEDIMENT SMALL (NEGATIVE); APPEARANCE, URINE CLOUDY (CLEAR); BACTERIA, URINE AUTO 3+ (NEGATIVE); BILIRUBIN, URINE AUTO NEGATIVE (NEGATIVE); BLOOD, URINE BLOOD 2+ (NEGATIVE); GLUCOSE, URINE (UA) AUTO NEGATIVE (NEGATIVE); KETONE, URINE AUTO TRACE mg/dL (NEGATIVE); LEUKOCYTE ESTERASE, URINE AUTO 3+ (NEGATIVE); NITRITE, URINE AUTO POSITIVE (NEGATIVE); PROTEIN, URINE AUTO 1+ mg/dL (NEGATIVE); RBC, URINE AUTO 27 /HPF (0-3); SPECIFIC GRAVITY URINE AUTO 1.014 (1.002-1.035); SQUAMOUS EPITHELIAL CELL UR AU 0 /HPF (0-6); UROBILINOGEN, URINE AUTO 0.2 mg/dL (0.0-2.0); WBC, URINE AUTO 168 /HPF (0-3)
[2025-06-30] MEDS: CEFEPIME HCL 1 GM in DEXTROSE 5% (D5W) ADV/MINI-BAG 50 ML IV ONE (00:30)
[2025-06-30 02:44] LABS: CALCIUM LEVEL 8.5 MG/DL (8.3-10.6); CARBON DIOXIDE LEVEL 21 MMOL/L (20-31); CHLORIDE LEVEL 101 MMOL/L (98-107); CREATININE FOR GFR 0.84 MG/DL (0.70-1.30); GLOMERULAR FILTRATION RATE > 90.0 (>42); POTASSIUM SERUM 5.2 MMOL/L (3.5-5.1); SODIUM LEVEL 138 MMOL/L (136-145)
[2025-06-30] MEDS: NS (Normal Saline) 0.9% 1,000 ML IV SCH (03:06)
[2025-06-30] MEDS ORDERED: ACETAMINOPHEN 325 MG TAB PO PRN (03:10)
[2025-06-30] MEDS ORDERED: MAALOX 30 ML SUSP *UDC PO PRN (03:10)
[2025-06-30] MEDS ORDERED: MOM 30 ML SUSPENSION UDC PO PRN (03:10)
[2025-06-30] MEDS ORDERED: GLUCOSE 4 GM CHEW PO PRN (03:15)
[2025-06-30] MEDS ORDERED: DEXTROSE 50% 50 ML SYRINGE IV PRN (03:15)
[2025-06-30] MEDS ORDERED: GLUCAGON INJ 1 MG VIAL SC PRN (03:15)
[2025-06-30] MEDS: NS (Normal Saline) 0.9% 1,000 ML IV ONE (03:47)
[2025-06-30] MEDS: CEFEPIME HCL 2 GM in DEXTROSE 5% (D5W) ADV/MINI-BAG 50 ML IV SCH (06:17)
[2025-06-30 06:59] VITALS: BP 137/78; TEMP 97.9; O2SAT 95
[2025-06-30 07:34] LABS: PLATELET COUNT, AUTOMATED 169 10^3/uL (150-450)
[2025-06-30 07:58] LABS: CALCIUM LEVEL 8.7 MG/DL (8.3-10.6); CARBON DIOXIDE LEVEL 26 MMOL/L (20-31); CHLORIDE LEVEL 103 MMOL/L (98-107); CREATININE FOR GFR 0.76 MG/DL (0.70-1.30); GLOMERULAR FILTRATION RATE > 90.0 (>42); POTASSIUM SERUM 5.0 MMOL/L (3.5-5.1); SODIUM LEVEL 141 MMOL/L (136-145)
[2025-06-30 08:00] VITALS: BP 133/75; TEMP 97.7; O2SAT 96
[2025-06-30] MEDS: INSULIN LISPRO (NovoLOG) PER UNIT SC SCH ×2 (08:01→21:38)
[2025-06-30 08:02] LABS: VENOUS BASE EXCESS -0.3 (-2.0-2.0); VENOUS HCO3 25.2 MMOL/L (23.0-27.0); VENOUS O2 SATURATION 98.7 % (60.0-80.0); VENOUS PARTIAL PRESSURE CO2 45.1 mmHg (38.0-50.0); VENOUS PARTIAL PRESSURE O2 201.2 mmHg (30.0-50.0); VENOUS PH 7.365 UNITS (7.330-7.430); VENOUS STANDARD HCO3 24.3 MMOL/L; VENOUS TOTAL CO2 26.6 MMOL/L (24.0-28.0)
[2025-06-30 08:36] LABS: PHOSPHORUS LEVEL 2.9 MG/DL (2.4-5.1)
[2025-06-30] MEDS ORDERED: ASPIRIN 81 MG CHEWABLE TABLET PO SCH (09:00)
[2025-06-30 09:14] LABS: ACETONE/KETONE 0.4 MMOL/L (0.02-0.27)
[2025-06-30] MEDS ORDERED: METF-877 PO (09:24)
[2025-06-30] MEDS ORDERED: HOME MED LIST COMPLETE! XX SCH (09:25)
[2025-06-30] MEDS: PANTOPRAZOLE 40MG TAB PO SCH (10:11)
[2025-06-30] MEDS: APIXABAN 5 MG TAB PO SCH (10:11)
[2025-06-30 10:37] LABS: FREE T4 0.84 NG/DL (0.89-1.76)
[2025-06-30] MEDS: AMIODARONE 200 MG TAB PO SCH (12:20)
[2025-06-30 12:40] LABS: IRON (FE) 33.0 UG/DL (65-175); PERCENT SATURATION 13.4 % (19.7-50.0)
[2025-06-30 12:43] LABS: VITAMIN B12 LEVEL 215.0 PG/ML (211-911)
[2025-06-30 14:00] VITALS: BP 138/79; TEMP 97.5
[2025-06-30 14:46] LABS: KETONE, URINE AUTO RFX NEGATIVE (NEGATIVE); MUCUS, URINE RFX SMALL (NEGATIVE); NITRITE, URINE AUTO RFX NEGATIVE (NEGATIVE); RBC, URINE AUTO RFX 37 /HPF (0-3); SQUAM EPITHELIAL CELL UR AURFX 0 /HPF (0-6)
[2025-06-30 15:03] LABS: LEUKOCYTE ESTERASE UR AUTO RFX 2+ (NEGATIVE); WBC, URINE AUTO RFX 99 /HPF (0-3)
[2025-06-30] MEDS: TRIHEXYPHENIDYL 2 MG TAB PO SCH (15:47)
[2025-06-30] MEDS: PHENYTOIN ER 100 MG CAP PO SCH (15:47)
[2025-06-30] MEDS: METOPROLOL SUCC *XL* 12.5 MG PER 1/2 TAB PO SCH (15:48)
[2025-06-30 18:00] VITALS: BP 122/69; TEMP 97.7
[2025-06-30 20:30] VITALS: BP 120/68; TEMP 97.7; O2SAT 97
[2025-07-01 00:49] VITALS: BP 123/70; TEMP 97.7; O2SAT 97
[2025-07-01 06:01] VITALS: BP 126/73; TEMP 97.7; O2SAT 97
[2025-07-01 08:00] VITALS: BP 132/75; TEMP 97.7; O2SAT 98
[2025-07-01 08:08] LABS: PLATELET COUNT, AUTOMATED 142 10^3/uL (150-450)
[2025-07-01] MEDS: METOPROLOL SUCC. 50 MG *XL* TAB PO SCH (08:22)
[2025-07-01 08:41] LABS: CALCIUM LEVEL 8.2 MG/DL (8.3-10.6); CARBON DIOXIDE LEVEL 26 MMOL/L (20-31); CHLORIDE LEVEL 105 MMOL/L (98-107); CREATININE FOR GFR 0.70 MG/DL (0.70-1.30); GLOMERULAR FILTRATION RATE > 90.0 (>42); POTASSIUM SERUM 4.1 MMOL/L (3.5-5.1); SODIUM LEVEL 141 MMOL/L (136-145)
[2025-07-01 12:00] VITALS: BP 133/75; TEMP 97.6; O2SAT 96
[2025-07-01] MEDS ORDERED: guaiFENesin SYRUP 200 MG/10 ML UDC PO PRN (13:10)
[2025-07-01] MEDS ORDERED: MIRALAX *UNIT DOSE* 17 GM PACKET PO PRN (13:10)
[2025-07-01] MEDS: FERROUS GLUCONATE 324 MG TAB PO SCH (13:48)
[2025-07-01] MEDS: FINASTERIDE 5 MG TAB PO SCH (13:49)
[2025-07-01] MEDS: PARoxetine 20MG TABLET PO SCH (13:49)
[2025-07-01] MEDS: VITAMIN D 1,000 INTERNATIONAL UNITS TABLET PO SCH (16:06)
[2025-07-01 18:38] VITALS: O2SAT 95
[2025-07-01] MEDS: OLANZapine 10 MG TAB PO SCH (20:41)
[2025-07-01] MEDS: DOCUSATE SODIUM 100 MG CAPSULE PO SCH (20:41)
[2025-07-01] MEDS: FOLIC ACID 1 MG TAB PO SCH (20:41)
[2025-07-01] MEDS: LanTUS (INSULIN GLARGINE INJ) 1 UNITS/0.01 ML SC SCH (20:43)
[2025-07-01 20:44] VITALS: BP 147/85; TEMP 97.5; O2SAT 97
[2025-07-02] VITALS (12 sets, daily range): BP systolic 97–153; BP diastolic 50–104; TEMP 96.8–97.9; O2SAT 92–99
[2025-07-02 06:12] LABS: CALCIUM LEVEL 8.2 MG/DL (8.3-10.6); CARBON DIOXIDE LEVEL 29 MMOL/L (20-31); CHLORIDE LEVEL 106 MMOL/L (98-107); CREATININE FOR GFR 0.67 MG/DL (0.70-1.30); GLOMERULAR FILTRATION RATE > 90.0 (>42); MAGNESIUM LEVEL 1.6 MG/DL (1.8-2.4); POTASSIUM SERUM 3.9 MMOL/L (3.5-5.1); SODIUM LEVEL 144 MMOL/L (136-145)
[2025-07-02] MEDS: MAG SULF 1GM/100ML (MAG RUN) 1 GM in IV 1 EA IV SCH (08:46)
[2025-07-02] MEDS: PANTOPRAZOLE 40MG TAB PO SCH (21:19)
[2025-07-03] VITALS (9 sets, daily range): BP systolic 103–133; BP diastolic 54–73; TEMP 97.3–97.9; O2SAT 94–99
[2025-07-03 06:37] LABS: PLATELET COUNT, AUTOMATED 128 10^3/uL (150-450)
[2025-07-03 07:48] LABS: CALCIUM LEVEL 8.5 MG/DL (8.3-10.6); CARBON DIOXIDE LEVEL 24 MMOL/L (20-31); CHLORIDE LEVEL 105 MMOL/L (98-107); CREATININE FOR GFR 0.69 MG/DL (0.70-1.30); GLOMERULAR FILTRATION RATE > 90.0 (>42); MAGNESIUM LEVEL 1.9 MG/DL (1.8-2.4); POTASSIUM SERUM 4.8 MMOL/L (3.5-5.1); SODIUM LEVEL 141 MMOL/L (136-145)
[2025-07-03] MEDS: SENNOSIDES/DOCUSATE SODIUM 8.6 MG/50MG TAB PO ONE (16:08)
[2025-07-03] MEDS: BISACODYL 10 MG SUPP PR SCH (21:00)
[2025-07-03] MEDS: SENNOSIDES/DOCUSATE SODIUM 8.6 MG/50MG TAB PO SCH (21:36)
[2025-07-04 03:28] VITALS: BP 137/61; TEMP 97.7; O2SAT 97
[2025-07-04 08:00] VITALS: BP 141/61; TEMP 97.2; O2SAT 99
[2025-07-04 09:35] VITALS: BP 142/72
[2025-07-04] MEDS: METOPROLOL SUCC. 50 MG *XL* TAB PO SCH (09:35)
[2025-07-04 10:00] VITALS: BP 141/61; TEMP 97.2; O2SAT 95
[2025-07-04] MEDS ORDERED: METO1TAB7 PO (13:21)
[2025-07-04 14:00] VITALS: BP 149/82; TEMP 97.8; O2SAT 95
[2025-07-28] MEDS ORDERED: CARBAMIDE PEROXIDE 6.5% OTIC SOLN 15 ML AU SCH (09:00)
== END 2025-07-04 15:35 | disposition home or self-care (01) ==
LOC: M ED 19:38 → M ED INP 19:39 → M MS5PR 06-30 04:00
PROVIDERS: ADMIT Student in an Organized Health Care Education/Training Program; ATTEND Student in an Organized Health Care Education/Training Program
DX: I95.9 Hypotension, unspecified (principal); R19.7 Diarrhea, unspecified; T83.511A Infection and inflammatory reaction due to indwelling urethral catheter, initial encounter; Y73.2 Prosthetic and other implants, materials and accessory gastroenterology and urology devices associated with adverse incidents; R82.81 Pyuria; R82.998 Other abnormal findings in urine; E87.6 Hypokalemia; E83.42 Hypomagnesemia; Z87.891 Personal history of nicotine dependence; R94.6 Abnormal results of thyroid function studies; R10.817 Generalized abdominal tenderness; I48.92 Unspecified atrial flutter; E11.9 Type 2 diabetes mellitus without complications; D50.9 Iron deficiency anemia, unspecified; K21.9 Gastro-esophageal reflux disease without esophagitis; I11.0 Hypertensive heart disease with heart failure; G40.909 Epilepsy, unspecified, not intractable, without status epilepticus; F39 Unspecified mood [affective] disorder; N40.1 Benign prostatic hyperplasia with lower urinary tract symptoms; F79 Unspecified intellectual disabilities; N32.81 Overactive bladder; C67.9 Malignant neoplasm of bladder, unspecified; Z96.0 Presence of urogenital implants; I50.32 Chronic diastolic (congestive) heart failure; B18.1 Chronic viral hepatitis B without delta-agent; G35.D Multiple sclerosis, unspecified; M48.061 Spinal stenosis, lumbar region without neurogenic claudication; M54.16 Radiculopathy, lumbar region; Z95.2 Presence of prosthetic heart valve; Z79.899 Other long term (current) drug therapy; Z79.01 Long term (current) use of anticoagulants; Z79.82 Long term (current) use of aspirin; Z79.84 Long term (current) use of oral hypoglycemic drugs; Z79.4 Long term (current) use of insulin
CPT/HCPCS: 36415; 36430; 71045; 80048; 80076; 80185; 81001; 82010; 82607; 82728; 82746; 82803; 83550; 83605; 83690; 83735; 84100; 84145; 84439; 84443; 85014; 85018; 85025; 85027; 86850; 86900; 86901; 86920; 87040; 87086; 87486; 87507; 87581; 87633; 87798; 93005; 96365; 96366; 96375; 96376; 99285; G0378; J0692; J1815; J3475; P9016

== ENCOUNTER → 2025-06-29 | Outpatient (CLI) | payer MEDICARE, MEDICAID ==
[~2025-06-29] MED LIST changes: +BACTDSTA PO; +METF-877 PO; +METO1TAB7 PO
== END ==
LOC: M EKG 09:15
PROVIDERS: ATTEND Physician Assistant
DX: I48.3 Typical atrial flutter (principal); Z53.9 Procedure and treatment not carried out, unspecified reason

== ENCOUNTER 2025-07-05 20:10 | Emergency (ER) | payer MEDICARE, MEDICAID ==
[~2025-07-05] VITALS: Ht 172.7 cm; Wt 56.8 kg
[~2025-07-05 20:10] MED LIST changes: +METF-877 PO; +METO1TAB7 PO
[2025-07-05 22:01] LABS: BASO # 0.0 10^3/uL (0.0-0.2); BASO % 0.3 % (0.0-1.0); EOS # 0.3 10^3/uL (0.0-0.5); EOS % 4.1 % (0.0-3.0); LYMPH # 1.5 10^3/uL (1.5-5.0); LYMPH % 20.6 % (24.0-44.0); MONO # 0.9 10^3/uL (0.0-0.8); MONO % 11.5 % (2.0-8.0); NEUTROPHILS # 4.7 10^3/uL (1.5-8.5); NEUTROPHILS % 62.8 % (36.0-66.0); PLATELET COUNT, AUTOMATED 140 10^3/uL (150-450)
[2025-07-05 22:17] LABS: ALT/SGPT 37 U/L (7.0-40); AST/SGOT 27 U/L (<34); CALCIUM LEVEL 8.8 MG/DL (8.3-10.6); CARBON DIOXIDE LEVEL 20 MMOL/L (20-31); CHLORIDE LEVEL 100 MMOL/L (98-107); CREATININE FOR GFR 1.33 MG/DL (0.70-1.30); GLOMERULAR FILTRATION RATE 56.4 (>42); POTASSIUM SERUM 5.5 MMOL/L (3.5-5.1); SODIUM LEVEL 138 MMOL/L (136-145)
[2025-07-06] MEDS: NS (Normal Saline) 0.9% 1,000 ML IV ONE (02:08)
[2025-07-06 02:33] LABS: APPEARANCE, URINE HAZY (CLEAR); BACTERIA, URINE AUTO 1+ (NEGATIVE); BILIRUBIN, URINE AUTO NEGATIVE (NEGATIVE); BLOOD, URINE BLOOD 2+ (NEGATIVE); GLUCOSE, URINE (UA) AUTO NEGATIVE (NEGATIVE); KETONE, URINE AUTO NEGATIVE (NEGATIVE); LEUKOCYTE ESTERASE, URINE AUTO 1+ (NEGATIVE); MUCUS, URINE SMALL (NEGATIVE); NITRITE, URINE AUTO NEGATIVE (NEGATIVE); PROTEIN, URINE AUTO 2+ mg/dL (NEGATIVE); RBC, URINE AUTO 52 /HPF (0-3); SPECIFIC GRAVITY URINE AUTO 1.016 (1.002-1.035); SQUAMOUS EPITHELIAL CELL UR AU 0 /HPF (0-6); UROBILINOGEN, URINE AUTO 0.2 mg/dL (0.0-2.0); WBC, URINE AUTO 23 /HPF (0-3)
[2025-07-06] MEDS: BACTRIM 160MG/800MG DS TAB PO ONE (06:07)
[2025-07-06 06:24] VITALS: BP 149/72; TEMP 97.3; O2SAT 97
[2025-07-06] MEDS ORDERED: BACTDSTA PO (06:24)
== END 2025-07-06 06:50 | disposition home or self-care (01) ==
LOC: M ED 20:10
DX: E86.0 Dehydration (principal); N39.0 Urinary tract infection, site not specified; I44.4 Left anterior fascicular block; I45.81 Long QT syndrome; I48.91 Unspecified atrial fibrillation; C67.9 Malignant neoplasm of bladder, unspecified; Z88.8 Allergy status to other drugs, medicaments and biological substances; Z79.1 Long term (current) use of non-steroidal anti-inflammatories (NSAID); Z79.01 Long term (current) use of anticoagulants; Z79.4 Long term (current) use of insulin; Z79.84 Long term (current) use of oral hypoglycemic drugs; Z79.899 Other long term (current) drug therapy; Z79.810 Long term (current) use of selective estrogen receptor modulators (SERMs)

== ENCOUNTER 2025-07-13 11:34 | Inpatient (IN) | payer MEDICARE, MEDICAID ==
[~2025-07-13] VITALS: Ht 157.5 cm; Wt 60.8 kg
[~2025-07-13 11:34] MED LIST changes: +BACTDSTA PO
[2025-07-13] MEDS ORDERED: BACTDSTA PO (13:21)
[2025-07-13] MEDS ORDERED: HOME MED LIST COMPLETE! XX SCH (13:25)
[2025-07-13 13:55] LABS: KETONE, URINE AUTO RFX NEGATIVE (NEGATIVE); NITRITE, URINE AUTO RFX NEGATIVE (NEGATIVE); RBC, URINE AUTO RFX 23 /HPF (0-3); SQUAM EPITHELIAL CELL UR AURFX 0 /HPF (0-6); WBC, URINE AUTO RFX 7 /HPF (0-3)
[2025-07-13 13:59] LABS: AMPHETAMINES LEVEL URINE NEGATIVE (NEGATIVE); BARBITURATES URINE NEGATIVE (NEGATIVE); BENZODIAZEPINES URINE NEGATIVE (NEGATIVE); CANNABINOIDS URINE NEGATIVE (NEGATIVE); COCAINE METABOLITE URINE NEGATIVE (NEGATIVE); METHADONE URINE NEGATIVE (NEGATIVE); OPIATES URINE NEGATIVE (NEGATIVE); PHENCYCLIDINE URINE NEGATIVE (NEGATIVE)
[2025-07-13 14:06] LABS: LEUKOCYTE ESTERASE UR AUTO RFX TRACE (NEGATIVE)
[2025-07-13 15:03] LABS: PLATELET COUNT, AUTOMATED 155 10^3/uL (150-450)
[2025-07-13] MEDS: DEXTROSE 50% 50 ML SYRINGE IV STA (15:09)
[2025-07-13 15:27] LABS: ETHYL ALCOHOL (ETHANOL) < 0.003 % (0.000-0.010)
[2025-07-13 15:29] LABS: ALT/SGPT 26 U/L (7.0-40); AST/SGOT 23 U/L (<34); CALCIUM LEVEL 9.6 MG/DL (8.3-10.6); CARBON DIOXIDE LEVEL 27 MMOL/L (20-31); CHLORIDE LEVEL 101 MMOL/L (98-107); CREATININE FOR GFR 1.29 MG/DL (0.70-1.30); GLOMERULAR FILTRATION RATE 58.6 (>42); POTASSIUM SERUM 5.2 MMOL/L (3.5-5.1); SALICYLATE LEVEL < 3.0 MG/DL (<30); SODIUM LEVEL 140 MMOL/L (136-145)
[2025-07-13 15:35] LABS: ATYPICAL LYMPH 3 % (0-5); BASOPHILS 1 % (0-1); EOSINOPHILS 15 % (0-3); LYMPHOCYTES 18 % (16-44); MONOCYTES 7 % (0-5); NEUTROPHILS 55 % (28-66); PLATELET ESTIMATE NORMAL (NORMAL)
[2025-07-13] MEDS: NS (Normal Saline) 0.9% 1,000 ML IV ONE ×2 (15:45→16:30)
[2025-07-13] MEDS ORDERED: AMOX875T2 PO (19:03)
[2025-07-13] MEDS: AUGMENTIN 875 MG TAB PO ONE (19:26)
[2025-07-13] MEDS ORDERED: ACETAMINOPHEN 325 MG TAB PO PRN (20:05)
[2025-07-13] MEDS ORDERED: MAALOX 30 ML SUSP *UDC PO PRN (20:05)
[2025-07-13] MEDS ORDERED: MOM 30 ML SUSPENSION UDC PO PRN (20:05)
[2025-07-13] MEDS ORDERED: guaiFENesin SYRUP 200 MG/10 ML UDC PO PRN (20:55)
[2025-07-13] MEDS ORDERED: traMADol 50 MG TAB PO PRN (20:55)
[2025-07-13] MEDS: DOCUSATE SODIUM 100 MG CAPSULE PO SCH (21:00)
[2025-07-13] MEDS: TRIHEXYPHENIDYL 2 MG TAB PO SCH (21:35)
[2025-07-13] MEDS: OLANZapine 10 MG TAB PO SCH (21:36)
[2025-07-13] MEDS: PHENYTOIN ER 100 MG CAP PO SCH (21:36)
[2025-07-13] MEDS: AMIODARONE 200 MG TAB PO SCH (21:36)
[2025-07-13] MEDS: APIXABAN 5 MG TAB PO SCH (21:36)
[2025-07-13] MEDS: FOLIC ACID 1 MG TAB PO SCH (21:36)
[2025-07-13] MEDS: cefTRIAXone SOD 1 GM in DEXTROSE 5% (D5W) ADV/MINI-BAG 50 ML IV SCH (21:55)
[2025-07-14 04:45] VITALS: BP 116/57; TEMP 97.1; O2SAT 96
[2025-07-14] MEDS: LR 1,000 ML IV ONE (05:34)
[2025-07-14 07:54] LABS: BASO # 0.0 10^3/uL (0.0-0.2); BASO % 0.2 % (0.0-1.0); EOS # 0.6 10^3/uL (0.0-0.5); EOS % 14.7 % (0.0-3.0); LYMPH # 0.9 10^3/uL (1.5-5.0); LYMPH % 20.8 % (24.0-44.0); MONO # 0.3 10^3/uL (0.0-0.8); MONO % 7.1 % (2.0-8.0); NEUTROPHILS # 2.3 10^3/uL (1.5-8.5); NEUTROPHILS % 56.5 % (36.0-66.0); PLATELET COUNT, AUTOMATED 155 10^3/uL (150-450)
[2025-07-14 08:19] LABS: ALT/SGPT 22.0 U/L (7.0-40); AST/SGOT 19.0 U/L (<34); CALCIUM LEVEL 8.7 MG/DL (8.3-10.6); CARBON DIOXIDE LEVEL 28.0 MMOL/L (20-31); CHLORIDE LEVEL 102.0 MMOL/L (98-107); CREATININE FOR GFR 1.01 MG/DL (0.70-1.30); GLOMERULAR FILTRATION RATE 78.5 (>42); MAGNESIUM LEVEL 1.7 MG/DL (1.8-2.4); POTASSIUM SERUM 4.8 MMOL/L (3.5-5.1); SODIUM LEVEL 140.0 MMOL/L (136-145)
[2025-07-14] MEDS ORDERED: PARoxetine 20MG TABLET PO SCH (09:00)
[2025-07-14] MEDS: MAG SULF 1GM/100ML (MAG RUN) 1 GM in IV 1 EA IV ONE (10:00)
[2025-07-14] MEDS: PANTOPRAZOLE 40MG VIAL IV SCH (10:00)
[2025-07-14] MEDS: FINASTERIDE 5 MG TAB PO SCH (10:02)
[2025-07-14] MEDS: ASPIRIN 81 MG ENTERIC TABLET PO SCH (10:03)
[2025-07-14] MEDS: PARoxetine 10MG TABLET PO SCH (10:03)
[2025-07-14] MEDS: METOPROLOL SUCC. 50 MG *XL* TAB PO SCH (10:04)
[2025-07-14 16:45] VITALS: BP 114/64; TEMP 98.1; O2SAT 90
[2025-07-14 19:49] VITALS: BP 115/65; TEMP 97.9; O2SAT 94
[2025-07-14] MEDS: LanTUS (INSULIN GLARGINE INJ) 1 UNITS/0.01 ML SC SCH (21:19)
[2025-07-15 04:09] VITALS: BP 115/64; TEMP 97.9; O2SAT 96
[2025-07-15 07:01] LABS: BASO # 0.0 10^3/uL (0.0-0.2); BASO % 0.5 % (0.0-1.0); EOS # 0.7 10^3/uL (0.0-0.5); EOS % 16.3 % (0.0-3.0); LYMPH # 1.2 10^3/uL (1.5-5.0); LYMPH % 28.0 % (24.0-44.0); MONO # 0.3 10^3/uL (0.0-0.8); MONO % 7.2 % (2.0-8.0); NEUTROPHILS # 2.1 10^3/uL (1.5-8.5); NEUTROPHILS % 47.8 % (36.0-66.0); PLATELET COUNT, AUTOMATED 165 10^3/uL (150-450)
[2025-07-15 07:38] LABS: ALT/SGPT 24 U/L (7.0-40); AST/SGOT 23 U/L (<34); CALCIUM LEVEL 8.8 MG/DL (8.3-10.6); CARBON DIOXIDE LEVEL 28 MMOL/L (20-31); CHLORIDE LEVEL 104 MMOL/L (98-107); CREATININE FOR GFR 1.03 MG/DL (0.70-1.30); GLOMERULAR FILTRATION RATE 76.7 (>42); MAGNESIUM LEVEL 1.8 MG/DL (1.8-2.4); POTASSIUM SERUM 4.5 MMOL/L (3.5-5.1); SODIUM LEVEL 141 MMOL/L (136-145)
[2025-07-15] MEDS ORDERED: LevoFLOXacin IV 500 MG in IV 1 EA IV SCH (07:40)
[2025-07-15] MEDS: LevoFLOXacin IV 750 MG in IV 1 EA IV SCH (09:48)
[2025-07-15] MEDS: ASPIRIN 81 MG CHEWABLE TABLET PO SCH (10:40)
[2025-07-15] MEDS: PARoxetine 10MG/5ML SUSP ORAL SYRINGE *DRAW UP EXACT DOSE PO SCH (10:41)
[2025-07-15 12:00] VITALS: BP 113/70; TEMP 98.6; O2SAT 95
[2025-07-15 19:33] VITALS: BP 116/70; TEMP 98.2; O2SAT 95
[2025-07-16 04:02] VITALS: O2SAT 92
[2025-07-16 07:29] LABS: PLATELET COUNT, AUTOMATED 161 10^3/uL (150-450)
[2025-07-16 07:54] LABS: ATYPICAL LYMPH 2 % (0-5); BASOPHILS 1 % (0-1); EOSINOPHILS 4 % (0-3); LYMPHOCYTES 15 % (16-44); MONOCYTES 9 % (0-5); NEUTROPHILS 68 % (28-66)
[2025-07-16 07:55] LABS: PLATELET ESTIMATE NORMAL (NORMAL)
[2025-07-16 08:05] LABS: ALT/SGPT 28.0 U/L (7.0-40); AST/SGOT 28.0 U/L (<34); CALCIUM LEVEL 8.9 MG/DL (8.3-10.6); CARBON DIOXIDE LEVEL 30.0 MMOL/L (20-31); CHLORIDE LEVEL 104.0 MMOL/L (98-107); CREATININE FOR GFR 1.08 MG/DL (0.70-1.30); GLOMERULAR FILTRATION RATE 72.5 (>42); MAGNESIUM LEVEL 1.6 MG/DL (1.8-2.4); POTASSIUM SERUM 4.5 MMOL/L (3.5-5.1); SODIUM LEVEL 144.0 MMOL/L (136-145)
[2025-07-16 09:00] VITALS: BP 119/66
[2025-07-16] MEDS: MAG SULF 1GM/100ML (MAG RUN) 1 GM in IV 1 EA IV ONE (09:11)
[2025-07-16] MEDS ORDERED: LEVO75TAB PO (10:36)
[2025-07-16] MEDS ORDERED: RISP-106 PO (10:36)
[2025-07-16] MEDS ORDERED: TOUJ1.2I SC (10:36)
[2025-07-16] MEDS ORDERED: ASPI81CH8 PO (10:36)
[2025-07-16] MEDS ORDERED: PARO10OR PO (10:36)
== END 2025-07-16 12:02 | disposition home or self-care (01) | DRG 698 ==
LOC: M ED 11:34 → M ED INP 20:02 → M MSPAV 07-14 16:51
PROVIDERS: ADMIT Student in an Organized Health Care Education/Training Program; ATTEND Internal Medicine Nephrology
DX: T83.518A Infection and inflammatory reaction due to other urinary catheter, initial encounter (principal); J18.9 Pneumonia, unspecified organism; G93.41 Metabolic encephalopathy; I48.92 Unspecified atrial flutter; N39.0 Urinary tract infection, site not specified; E87.20 Acidosis, unspecified; I50.32 Chronic diastolic (congestive) heart failure; Y84.6 Urinary catheterization as the cause of abnormal reaction of the patient, or of later complication, without mention of misadventure at the time of the procedure; E11.649 Type 2 diabetes mellitus with hypoglycemia without coma; I11.0 Hypertensive heart disease with heart failure; G40.909 Epilepsy, unspecified, not intractable, without status epilepticus; D64.9 Anemia, unspecified; G35.D Multiple sclerosis, unspecified; E87.5 Hyperkalemia; F79 Unspecified intellectual disabilities; F39 Unspecified mood [affective] disorder; L89.152 Pressure ulcer of sacral region, stage 2; L89.612 Pressure ulcer of right heel, stage 2; R13.10 Dysphagia, unspecified; B18.2 Chronic viral hepatitis C; Z79.01 Long term (current) use of anticoagulants; Z79.4 Long term (current) use of insulin; Z79.899 Other long term (current) drug therapy; Z88.8 Allergy status to other drugs, medicaments and biological substances; Z91.048 Other nonmedicinal substance allergy status; Z85.51 Personal history of malignant neoplasm of bladder; Z95.2 Presence of prosthetic heart valve

== ENCOUNTER → 2025-07-22 | Outpatient (CLI) | payer MEDICARE, MEDICAID ==
[~2025-07-22] MED LIST changes: +AMOX875T2 PO; +ASPI81CH8 PO; +PARO10OR PO; +RISP-106 PO
[2025-07-22 11:48] LABS: BASO # 0.0 10^3/uL (0.0-0.2); BASO % 0.6 % (0.0-1.0); EOS # 0.6 10^3/uL (0.0-0.5); EOS % 16.7 % (0.0-3.0); LYMPH # 1.0 10^3/uL (1.5-5.0); LYMPH % 27.8 % (24.0-44.0); MONO # 0.3 10^3/uL (0.0-0.8); MONO % 9.4 % (2.0-8.0); NEUTROPHILS # 1.6 10^3/uL (1.5-8.5); NEUTROPHILS % 45.2 % (36.0-66.0); PLATELET COUNT, AUTOMATED 145 10^3/uL (150-450)
[2025-07-22 12:05] LABS: ALT/SGPT 21.0 U/L (7.0-40); AST/SGOT 22.0 U/L (<34); CALCIUM LEVEL 9.3 MG/DL (8.3-10.6); CARBON DIOXIDE LEVEL 28.0 MMOL/L (20-31); CHLORIDE LEVEL 104.0 MMOL/L (98-107); CREATININE FOR GFR 0.93 MG/DL (0.70-1.30); GLOMERULAR FILTRATION RATE 86.7 (>42); POTASSIUM SERUM 4.4 MMOL/L (3.5-5.1); SODIUM LEVEL 141.0 MMOL/L (136-145)
== END ==
LOC: M LAB 10:39
PROVIDERS: ATTEND Internal Medicine
DX: A41.81 Sepsis due to Enterococcus (principal)

== ENCOUNTER 2025-07-31 09:56 | Inpatient (IN) | payer MEDICARE, MEDICAID ==
[2025-07-31 10:52] LABS: KETONE, URINE AUTO RFX NEGATIVE (NEGATIVE); MUCUS, URINE RFX SMALL (NEGATIVE); NITRITE, URINE AUTO RFX NEGATIVE (NEGATIVE); RBC, URINE AUTO RFX 61 /HPF (0-3); SQUAM EPITHELIAL CELL UR AURFX 0 /HPF (0-6); WBC, URINE AUTO RFX 7 /HPF (0-3)
[2025-07-31 10:53] LABS: BASO # 0.0 10^3/uL (0.0-0.2); BASO % 0.2 % (0.0-1.0); EOS # 0.9 10^3/uL (0.0-0.5); EOS % 19.6 % (0.0-3.0); LEUKOCYTE ESTERASE UR AUTO RFX TRACE (NEGATIVE); LYMPH # 1.4 10^3/uL (1.5-5.0); LYMPH % 31.5 % (24.0-44.0); MONO # 0.4 10^3/uL (0.0-0.8); MONO % 8.7 % (2.0-8.0); NEUTROPHILS # 1.7 10^3/uL (1.5-8.5); NEUTROPHILS % 39.5 % (36.0-66.0); PLATELET COUNT, AUTOMATED 112 10^3/uL (150-450)
[2025-07-31] MEDS ORDERED: PARO30TA3 PO (11:25)
[2025-07-31] MEDS ORDERED: METO1TAB7 PO (11:25)
[2025-07-31] MEDS ORDERED: HOME MED LIST COMPLETE! XX SCH (11:25)
[2025-07-31] MEDS ORDERED: CVS13CRE TOP (11:25)
[2025-07-31] MEDS ORDERED: RISP-106 PO (11:25)
[2025-07-31 12:12] LABS: ALT/SGPT 23 U/L (7.0-40); AST/SGOT 29 U/L (<34); CALCIUM LEVEL 8.8 MG/DL (8.3-10.6); CARBON DIOXIDE LEVEL 31 MMOL/L (20-31); CHLORIDE LEVEL 104 MMOL/L (98-107); CREATININE FOR GFR 1.05 MG/DL (0.70-1.30); GLOMERULAR FILTRATION RATE 75.0 (>42); POTASSIUM SERUM 4.4 MMOL/L (3.5-5.1); SODIUM LEVEL 142 MMOL/L (136-145)
[2025-07-31] MEDS: NS 500 ML IV ONE (12:36)
[2025-07-31 14:47] LABS: FREE T4 0.72 NG/DL (0.89-1.76)
[2025-07-31 14:56] LABS: C REACTIVE PROTEIN QUANTITATIV 4.12 MG/DL (<1.0)
[2025-07-31] MEDS: NS (Normal Saline) 0.9% 1,000 ML IV SCH (15:53)
[2025-07-31 17:50] VITALS: BP 149/71; TEMP 98.1; O2SAT 95
[2025-07-31 20:00] VITALS: BP 111/59; TEMP 97.9; O2SAT 95
[2025-07-31] MEDS: DOCUSATE SODIUM 100 MG CAPSULE PO SCH (21:00)
[2025-07-31] MEDS: LanTUS (INSULIN GLARGINE INJ) 1 UNITS/0.01 ML SC SCH (21:24)
[2025-07-31] MEDS: PHENYTOIN ER 100 MG CAP PO SCH (21:25)
[2025-07-31] MEDS: APIXABAN 5 MG TAB PO SCH (21:25)
[2025-07-31] MEDS: OLANZapine 10 MG TAB PO SCH (21:25)
[2025-07-31] MEDS: AMIODARONE 200 MG TAB PO SCH (21:25)
[2025-08-01 04:00] VITALS: BP 120/59; TEMP 97; O2SAT 95
[2025-08-01] MEDS: NS (Normal Saline) 0.9% 1,000 ML IV SCH (06:20)
[2025-08-01 06:40] LABS: PLATELET COUNT, AUTOMATED 100 10^3/uL (150-450)
[2025-08-01 07:21] LABS: ALT/SGPT 25.0 U/L (7.0-40); AST/SGOT 29.0 U/L (<34); CALCIUM LEVEL 8.0 MG/DL (8.3-10.6); CARBON DIOXIDE LEVEL 28.0 MMOL/L (20-31); CHLORIDE LEVEL 106.0 MMOL/L (98-107); CREATININE FOR GFR 0.92 MG/DL (0.70-1.30); FREE T4 0.66 NG/DL (0.89-1.76); GLOMERULAR FILTRATION RATE 87.8 (>42); POTASSIUM SERUM 4.3 MMOL/L (3.5-5.1); SODIUM LEVEL 142.0 MMOL/L (136-145)
[2025-08-01] MEDS ORDERED: guaiFENesin SYRUP 200 MG/10 ML UDC PO PRN (07:50)
[2025-08-01] MEDS ORDERED: ACETAMINOPHEN 325 MG TAB PO PRN (07:50)
[2025-08-01 07:51] LABS: ATYPICAL LYMPH 1 % (0-5); BASOPHILS 1 % (0-1); EOSINOPHILS 20 % (0-3); LYMPHOCYTES 32 % (16-44); MONOCYTES 4 % (0-5); NEUTROPHILS 40 % (28-66)
[2025-08-01 07:52] LABS: PLATELET ESTIMATE DECREASED (NORMAL)
[2025-08-01] MEDS ORDERED: CARBAMIDE PEROXIDE 6.5% OTIC SOLN 15 ML AU SCH (09:00)
[2025-08-01] MEDS: cefTRIAXone SOD 1 GM in DEXTROSE 5% (D5W) ADV/MINI-BAG 50 ML IV SCH (09:54)
[2025-08-01] MEDS: PARoxetine 10MG TABLET PO SCH (09:55)
[2025-08-01] MEDS: ASPIRIN 81 MG CHEWABLE TABLET PO SCH (09:56)
[2025-08-01] MEDS: TRIHEXYPHENIDYL 2 MG TAB PO SCH (09:56)
[2025-08-01] MEDS: FINASTERIDE 5 MG TAB PO SCH (09:57)
[2025-08-01] MEDS: METOPROLOL SUCC. 50 MG *XL* TAB PO SCH (09:57)
[2025-08-01] MEDS: FERROUS GLUCONATE 324 MG TAB PO SCH (09:57)
[2025-08-01 12:26] VITALS: BP 129/60; TEMP 98; O2SAT 98
[2025-08-01 20:00] VITALS: BP 148/70; TEMP 97.8; O2SAT 93
[2025-08-01] MEDS: FOLIC ACID 1 MG TAB PO SCH (21:13)
[2025-08-02 04:00] VITALS: BP 127/64; TEMP 97.8; O2SAT 94
[2025-08-02 06:39] LABS: PLATELET COUNT, AUTOMATED 124 10^3/uL (150-450)
[2025-08-02 07:09] LABS: ALT/SGPT 24 U/L (7.0-40); AST/SGOT 36 U/L (<34); CALCIUM LEVEL 8.6 MG/DL (8.3-10.6); CARBON DIOXIDE LEVEL 27 MMOL/L (20-31); CHLORIDE LEVEL 105 MMOL/L (98-107); CREATININE FOR GFR 0.92 MG/DL (0.70-1.30); GLOMERULAR FILTRATION RATE 87.8 (>42); POTASSIUM SERUM 4.5 MMOL/L (3.5-5.1); SODIUM LEVEL 140 MMOL/L (136-145)
[2025-08-02 07:29] LABS: EOSINOPHILS 24 % (0-3); LYMPHOCYTES 26 % (16-44); MONOCYTES 7 % (0-5); NEUTROPHILS 42 % (28-66)
[2025-08-02 07:30] LABS: PLATELET ESTIMATE DECREASED (NORMAL)
[2025-08-02] MEDS: LanTUS (INSULIN GLARGINE INJ) 1 UNITS/0.01 ML SC SCH (09:24)
[2025-08-02 12:00] VITALS: BP 125/65; TEMP 98; O2SAT 97
[2025-08-02 19:42] VITALS: BP 139/70; TEMP 98.2; O2SAT 98
[2025-08-03 03:58] VITALS: BP 142/76; TEMP 97.8; O2SAT 96
[2025-08-03 08:18] LABS: BASO # 0.0 10^3/uL (0.0-0.2); BASO % 0.2 % (0.0-1.0); EOS # 1.0 10^3/uL (0.0-0.5); LYMPH # 1.2 10^3/uL (1.5-5.0); LYMPH % 27.3 % (24.0-44.0); MONO # 0.3 10^3/uL (0.0-0.8); MONO % 6.9 % (2.0-8.0); NEUTROPHILS # 1.8 10^3/uL (1.5-8.5); NEUTROPHILS % 41.6 % (36.0-66.0); PLATELET COUNT, AUTOMATED 119 10^3/uL (150-450)
[2025-08-03 08:26] LABS: EOS % 23.5 % (0.0-3.0)
[2025-08-03 08:35] VITALS: BP 138/74
[2025-08-03 08:49] LABS: ALT/SGPT 26 U/L (7.0-40); AST/SGOT 27 U/L (<34); CALCIUM LEVEL 8.9 MG/DL (8.3-10.6); CARBON DIOXIDE LEVEL 31 MMOL/L (20-31); CHLORIDE LEVEL 105 MMOL/L (98-107); CREATININE FOR GFR 0.90 MG/DL (0.70-1.30); GLOMERULAR FILTRATION RATE > 90.0 (>42); POTASSIUM SERUM 4.4 MMOL/L (3.5-5.1); SODIUM LEVEL 145 MMOL/L (136-145)
[2025-08-03 12:00] VITALS: BP 131/72; TEMP 97.8; O2SAT 97
[2025-08-03] MEDS: MIRALAX *UNIT DOSE* 17 GM PACKET PO PRN (13:45)
[2025-08-04] MEDS ORDERED: BACT800T5 PO (22:39)
[2025-08-04] MEDS ORDERED: NEOM28OI27 TOP (22:49)
== END 2025-08-03 18:11 | disposition home or self-care (01) | DRG 71 ==
LOC: M ED 09:56 → M ED INP 13:36 → INTOOBSV 13:36 → M MSPAV 17:27 → OBSVTOIN 08-02 16:10
PROVIDERS: ADMIT Internal Medicine; ATTEND Internal Medicine
DX: G93.41 Metabolic encephalopathy (principal); I48.92 Unspecified atrial flutter; I50.32 Chronic diastolic (congestive) heart failure; I11.0 Hypertensive heart disease with heart failure; G35.D Multiple sclerosis, unspecified; E11.9 Type 2 diabetes mellitus without complications; G40.909 Epilepsy, unspecified, not intractable, without status epilepticus; D64.9 Anemia, unspecified; D69.6 Thrombocytopenia, unspecified; N31.9 Neuromuscular dysfunction of bladder, unspecified; E86.0 Dehydration; R82.71 Bacteriuria; M48.061 Spinal stenosis, lumbar region without neurogenic claudication; Z95.2 Presence of prosthetic heart valve; Z87.891 Personal history of nicotine dependence; Z79.01 Long term (current) use of anticoagulants; Z79.82 Long term (current) use of aspirin; Z79.4 Long term (current) use of insulin; Z79.899 Other long term (current) drug therapy; Z88.8 Allergy status to other drugs, medicaments and biological substances; Z91.048 Other nonmedicinal substance allergy status

== ENCOUNTER 2025-08-04 18:04 | Inpatient (IN) | payer MEDICARE, MEDICAID ==
[~2025-08-04 18:04] MED LIST changes: +CVS13CRE TOP; +PARO30TA3 PO
[2025-08-04 19:11] LABS: BASO # 0.0 10^3/uL (0.0-0.2); BASO % 0.2 % (0.0-1.0); EOS # 0.8 10^3/uL (0.0-0.5); EOS % 15.8 % (0.0-3.0); LYMPH # 1.5 10^3/uL (1.5-5.0); LYMPH % 29.0 % (24.0-44.0); MONO # 0.4 10^3/uL (0.0-0.8); MONO % 6.8 % (2.0-8.0); NEUTROPHILS # 2.5 10^3/uL (1.5-8.5); NEUTROPHILS % 47.8 % (36.0-66.0); PLATELET COUNT, AUTOMATED 180 10^3/uL (150-450)
[2025-08-04 19:23] LABS: INR 1.09
[2025-08-04 19:26] LABS: KETONE, URINE AUTO RFX NEGATIVE (NEGATIVE); MUCUS, URINE RFX SMALL (NEGATIVE); NITRITE, URINE AUTO RFX NEGATIVE (NEGATIVE); RBC, URINE AUTO RFX 16 /HPF (0-3); SQUAM EPITHELIAL CELL UR AURFX 0 /HPF (0-6); WBC, URINE AUTO RFX 8 /HPF (0-3)
[2025-08-04 19:27] LABS: LEUKOCYTE ESTERASE UR AUTO RFX 2+ (NEGATIVE)
[2025-08-04 19:31] LABS: C REACTIVE PROTEIN QUANTITATIV 1.71 MG/DL (<1.0)
[2025-08-04 20:08] LABS: VENOUS BASE EXCESS 1.4 (-2.0-2.0); VENOUS HCO3 29.6 MMOL/L (23.0-27.0); VENOUS O2 SATURATION 64.4 % (60.0-80.0); VENOUS PARTIAL PRESSURE CO2 61.1 mmHg (38.0-50.0); VENOUS PARTIAL PRESSURE O2 35.6 mmHg (30.0-50.0); VENOUS PH 7.303 UNITS (7.330-7.430); VENOUS STANDARD HCO3 24.7 MMOL/L; VENOUS TOTAL CO2 31.5 MMOL/L (24.0-28.0)
[2025-08-04 20:18] LABS: ETHYL ALCOHOL (ETHANOL) 0.003 % (0.000-0.010)
[2025-08-04 20:20] LABS: SALICYLATE LEVEL < 3.0 MG/DL (<30)
[2025-08-04 20:28] LABS: FREE T4 0.71 NG/DL (0.89-1.76)
[2025-08-04 20:31] LABS: ALT/SGPT 28 U/L (7.0-40); AST/SGOT 31 U/L (<34); CALCIUM LEVEL 8.8 MG/DL (8.3-10.6); CARBON DIOXIDE LEVEL 28 MMOL/L (20-31); CHLORIDE LEVEL 102 MMOL/L (98-107); CREATININE FOR GFR 0.91 MG/DL (0.70-1.30); GLOMERULAR FILTRATION RATE 89.0 (>42); POTASSIUM SERUM 5.1 MMOL/L (3.5-5.1); SODIUM LEVEL 140 MMOL/L (136-145)
[2025-08-04] MEDS: NS 500 ML IV ONE (20:51)
[2025-08-04] MEDS: OLANZapine 10 MG TAB PO SCH (21:00)
[2025-08-04 21:50] LABS: BARBITURATES URINE NEGATIVE (NEGATIVE); COCAINE METABOLITE URINE NEGATIVE (NEGATIVE); METHADONE URINE NEGATIVE (NEGATIVE); OPIATES URINE NEGATIVE (NEGATIVE)
[2025-08-04 21:51] LABS: AMPHETAMINES LEVEL URINE NEGATIVE (NEGATIVE); BENZODIAZEPINES URINE NEGATIVE (NEGATIVE); CANNABINOIDS URINE NEGATIVE (NEGATIVE); PHENCYCLIDINE URINE NEGATIVE (NEGATIVE)
[2025-08-04 22:03] LABS: ABG BASE EXCESS 1.3 (-2.0-2.0); ABG HCO3 26.7 MMOL/L (22.0-26.0); ABG O2 SATURATION 95.1 % (95.0-99.0); ABG PARTIAL PRESSURE CO2 45.2 mmHg (35.0-45.0); ABG PARTIAL PRESSURE O2 77.9 mmHg (75.0-100.0); ABG STANDARD HCO3 25.6 MMOL/L. (22.0-26.0); ABG TOTAL CO2 28.1 MMOL/L (23.0-31.0); ABG pH (ARTERIAL) 7.389 UNITS (7.350-7.450)
[2025-08-04] MEDS ORDERED: ONDANSETRON 4MG/2ML VIAL IV PRN (22:10)
[2025-08-04] MEDS ORDERED: ACETAMINOPHEN 325 MG TAB PO PRN (22:10)
[2025-08-04] MEDS ORDERED: MOM 30 ML SUSPENSION UDC PO PRN (22:10)
[2025-08-04] MEDS: NS (Normal Saline) 0.9% 1,000 ML IV SCH (22:38)
[2025-08-04] MEDS ORDERED: BACT800T5 PO (22:39)
[2025-08-04] MEDS ORDERED: DEXTROSE 50% 50 ML SYRINGE IV PRN (22:40)
[2025-08-04] MEDS ORDERED: GLUCOSE 4 GM CHEW PO PRN (22:40)
[2025-08-04] MEDS ORDERED: GLUCAGON INJ 1 MG VIAL SC PRN (22:40)
[2025-08-04] MEDS ORDERED: NEOM28OI27 TOP (22:49)
[2025-08-04] MEDS ORDERED: HOME MED LIST COMPLETE! XX SCH (22:55)
[2025-08-04 22:58] VITALS: BP 166/80; TEMP 97; O2SAT 97
[2025-08-05 00:13] LABS: INR 1.14
[2025-08-05 03:41] VITALS: BP 130/90; TEMP 97.6; O2SAT 99
[2025-08-05 06:10] LABS: PLATELET COUNT, AUTOMATED 121 10^3/uL (150-450)
[2025-08-05 06:44] LABS: ALT/SGPT 20 U/L (7.0-40); AST/SGOT 21 U/L (<34); CALCIUM LEVEL 8.1 MG/DL (8.3-10.6); CARBON DIOXIDE LEVEL 26 MMOL/L (20-31); CHLORIDE LEVEL 105 MMOL/L (98-107); CREATININE FOR GFR 0.83 MG/DL (0.70-1.30); GLOMERULAR FILTRATION RATE > 90.0 (>42); MAGNESIUM LEVEL 1.6 MG/DL (1.8-2.4); POTASSIUM SERUM 4.2 MMOL/L (3.5-5.1); SODIUM LEVEL 142 MMOL/L (136-145)
[2025-08-05] MEDS: INSULIN LISPRO (NovoLOG) PER UNIT SC SCH (07:30)
[2025-08-05] MEDS: ASPIRIN 81 MG CHEWABLE TABLET PO SCH (08:36)
[2025-08-05] MEDS: MAG SULF 1GM/100ML (MAG RUN) 1 GM in IV 1 EA IV ONE (08:36)
[2025-08-05] MEDS: APIXABAN 5 MG TAB PO SCH (08:36)
[2025-08-05] MEDS: FINASTERIDE 5 MG TAB PO SCH (08:36)
[2025-08-05] MEDS: AMIODARONE 200 MG TAB PO SCH (08:36)
[2025-08-05] MEDS: METOPROLOL SUCC. 50 MG *XL* TAB PO SCH (08:42)
[2025-08-05] MEDS ORDERED: ENOXAPARIN 40 MG/0.4 ML SYRINGE (J1650 PER 10MG) SC SCH (09:00)
[2025-08-05 11:44] VITALS: BP 127/64; TEMP 97.9; O2SAT 97
[2025-08-05 21:12] VITALS: BP 114/65; TEMP 98; O2SAT 97
[2025-08-06 05:14] VITALS: BP 132/99; TEMP 98.4; O2SAT 98
[2025-08-06 06:14] VITALS: BP 144/72
[2025-08-06 08:44] LABS: CALCIUM LEVEL 8.2 MG/DL (8.3-10.6); CARBON DIOXIDE LEVEL 26 MMOL/L (20-31); CHLORIDE LEVEL 106 MMOL/L (98-107); CREATININE FOR GFR 0.90 MG/DL (0.70-1.30); GLOMERULAR FILTRATION RATE > 90.0 (>42); MAGNESIUM LEVEL 1.8 MG/DL (1.8-2.4); POTASSIUM SERUM 4.5 MMOL/L (3.5-5.1); SODIUM LEVEL 141 MMOL/L (136-145)
[2025-08-06 11:34] VITALS: BP 129/63; TEMP 98; O2SAT 98
[2025-08-06 20:21] VITALS: BP 132/65; TEMP 98.1; O2SAT 98
[2025-08-07 05:47] VITALS: BP 165/81; TEMP 98.2; O2SAT 96
[2025-08-07 07:06] LABS: PLATELET COUNT, AUTOMATED 118 10^3/uL (150-450)
[2025-08-07 08:00] VITALS: BP 174/85; TEMP 98.4; O2SAT 98
[2025-08-07 12:00] VITALS: BP 152/72; TEMP 98.2; O2SAT 97
[2025-08-07 14:00] VITALS: BP 174/84; TEMP 98.4; O2SAT 98
[2025-08-07 20:00] VITALS: TEMP 97.9; O2SAT 96
[2025-08-07] MEDS ORDERED: GLUCAGON INJ 1 MG VIAL SC PRN (21:45)
[2025-08-07] MEDS ORDERED: DEXTROSE 50% 50 ML SYRINGE IV PRN (21:45)
[2025-08-07] MEDS ORDERED: GLUCOSE 4 GM CHEW PO PRN (21:45)
[2025-08-07] MEDS: INSULIN LISPRO (NovoLOG) PER UNIT SC SCH (21:59)
[2025-08-07 22:02] VITALS: BP 152/70; TEMP 98.2; O2SAT 96
[2025-08-08 04:00] VITALS: BP 163/85; TEMP 98; O2SAT 97
[2025-08-08] MEDS ORDERED: INSULIN LISPRO (NovoLOG) PER UNIT SC SCH (07:30)
[2025-08-08 08:22] VITALS: BP 162/76
[2025-08-08] MEDS: DIVALPROEX 250 MG *ER* TAB PO SCH (08:30)
[2025-08-08] MEDS: PHENYTOIN ER 100 MG CAP PO SCH (09:29)
[2025-08-08 11:38] VITALS: BP 129/88; TEMP 98.2; O2SAT 98
[2025-08-08] MEDS ORDERED: DILA100C PO ×2 (11:38)
[2025-08-08] MEDS ORDERED: DEPA250T PO (11:38)
[2025-08-09] MEDS ORDERED: PHENYTOIN ER 100 MG CAP PO SCH (09:00)
[2025-08-10] MEDS ORDERED: AMIODARONE 200 MG TAB PO SCH (09:00)
== END 2025-08-08 13:14 | disposition home or self-care (01) | DRG 92 ==
LOC: EDBD 18:04 → M ED 18:04 → M ED INP 22:06 → M MSPAV 22:54
PROVIDERS: ADMIT Internal Medicine; ATTEND Student in an Organized Health Care Education/Training Program
DX: G92.9 Unspecified toxic encephalopathy (principal); I48.92 Unspecified atrial flutter; I50.32 Chronic diastolic (congestive) heart failure; B18.1 Chronic viral hepatitis B without delta-agent; F79 Unspecified intellectual disabilities; G40.909 Epilepsy, unspecified, not intractable, without status epilepticus; G35.D Multiple sclerosis, unspecified; E83.42 Hypomagnesemia; E11.9 Type 2 diabetes mellitus without complications; I11.0 Hypertensive heart disease with heart failure; M48.061 Spinal stenosis, lumbar region without neurogenic claudication; Z95.2 Presence of prosthetic heart valve; T42.0X1A Poisoning by hydantoin derivatives, accidental (unintentional), initial encounter; Z79.01 Long term (current) use of anticoagulants; Z79.4 Long term (current) use of insulin; Z79.899 Other long term (current) drug therapy; Z88.8 Allergy status to other drugs, medicaments and biological substances; Z91.018 Allergy to other foods

== ENCOUNTER → 2025-08-16 | Outpatient (CLI) | payer MEDICARE, MEDICAID ==
[~2025-08-16] MED LIST changes: +BACT800T5 PO; -BACTDSTA PO; +DEPA250T PO; +NEOM28OI27 TOP; +RISP-39 PO; -RISP3TAB20 PO; +SULF-8 PO
[2025-08-16 12:59] LABS: PLATELET COUNT, AUTOMATED 127 10^3/uL (150-450)
[2025-08-16 13:42] LABS: ALT/SGPT 23 U/L (7.0-40); AST/SGOT 16 U/L (<34); CALCIUM LEVEL 8.7 MG/DL (8.3-10.6); CARBON DIOXIDE LEVEL 30 MMOL/L (20-31); CHLORIDE LEVEL 102 MMOL/L (98-107); CREATININE FOR GFR 0.89 MG/DL (0.70-1.30); DIGOXIN LEVEL 0.3 NG/ML (0.8-2.0); FREE T4 0.71 NG/DL (0.89-1.76); GLOMERULAR FILTRATION RATE > 90.0 (>42); POTASSIUM SERUM 4.6 MMOL/L (3.5-5.1); SODIUM LEVEL 142 MMOL/L (136-145)
== END ==
LOC: M LAB 12:14
PROVIDERS: ATTEND Internal Medicine
DX: R41.82 Altered mental status, unspecified (principal); Z79.899 Other long term (current) drug therapy

== ENCOUNTER → 2025-08-16 | Outpatient (CLI) | payer MEDICARE, MEDICAID ==
[~2025-08-16] MED LIST changes: -RISP-39 PO; +RISP3TAB20 PO
[2025-08-16 13:25] LABS: PLATELET COUNT, AUTOMATED 133 10^3/uL (150-450)
[2025-08-16 13:48] LABS: ALT/SGPT 24.0 U/L (7.0-40); AST/SGOT 13.0 U/L (<34); CALCIUM LEVEL 8.4 MG/DL (8.3-10.6); CARBON DIOXIDE LEVEL 32.0 MMOL/L (20-31); CHLORIDE LEVEL 103.0 MMOL/L (98-107); CREATININE FOR GFR 0.95 MG/DL (0.70-1.30); DIGOXIN LEVEL 0.3 NG/ML (0.8-2.0); GLOMERULAR FILTRATION RATE 84.5 (>42); POTASSIUM SERUM 4.7 MMOL/L (3.5-5.1); SODIUM LEVEL 143.0 MMOL/L (136-145)
[2025-08-16 13:49] LABS: FREE T4 0.62 NG/DL (0.89-1.76)
== END ==
LOC: M PLALAB 09:44
PROVIDERS: ATTEND Internal Medicine
DX: R41.82 Altered mental status, unspecified (principal)

== ENCOUNTER → 2025-08-24 | Outpatient (CLI) | payer MEDICARE, MEDICAID ==
[~2025-08-24] MED LIST changes: +RISP-39 PO; -RISP3TAB20 PO
[2025-08-24 13:55] LABS: PLATELET COUNT, AUTOMATED 169 10^3/uL (150-450)
[2025-08-24 14:30] LABS: ALT/SGPT 33.0 U/L (7.0-40); AST/SGOT 29.0 U/L (<34); CALCIUM LEVEL 8.8 MG/DL (8.3-10.6); CARBON DIOXIDE LEVEL 32.0 MMOL/L (20-31); CHLORIDE LEVEL 103.0 MMOL/L (98-107); CREATININE FOR GFR 1.12 MG/DL (0.70-1.30); GLOMERULAR FILTRATION RATE 69.4 (>42); POTASSIUM SERUM 4.7 MMOL/L (3.5-5.1); SODIUM LEVEL 143.0 MMOL/L (136-145)
== END ==
LOC: M PLALAB 09:47
PROVIDERS: ATTEND Internal Medicine
DX: I48.91 Unspecified atrial fibrillation (principal)

== ENCOUNTER → 2025-08-24 | Outpatient (CLI) | payer MEDICARE, MEDICAID ==
[2025-08-24 13:53] LABS: PLATELET COUNT, AUTOMATED 176 10^3/uL (150-450)
[2025-08-24 14:28] LABS: VALPROIC ACID (DEPAKOTE) 16.2 UG/ML (50.0-100.0)
[2025-08-24 14:31] LABS: ALT/SGPT 34.0 U/L (7.0-40); AST/SGOT 29.0 U/L (<34); CALCIUM LEVEL 8.8 MG/DL (8.3-10.6); CARBON DIOXIDE LEVEL 31.0 MMOL/L (20-31); CHLORIDE LEVEL 103.0 MMOL/L (98-107); CREATININE FOR GFR 1.13 MG/DL (0.70-1.30); GLOMERULAR FILTRATION RATE 68.6 (>42); POTASSIUM SERUM 4.8 MMOL/L (3.5-5.1); SODIUM LEVEL 143.0 MMOL/L (136-145)
== END ==
LOC: M PLALAB 09:42
PROVIDERS: ATTEND Psychiatry & Neurology Neurology
DX: R56.9 Unspecified convulsions (principal); I48.91 Unspecified atrial fibrillation